=== PATIENT | male | born 1945 | race Caucasian/White ===

== ENCOUNTER → 2016-07-23 | Day surgery (SDC) | payer BC ==
[2016-07-20 12:27] LABS: HEMATOCRIT 42.7 % (42-52); MEAN CELL VOLUME 89.7 fL (80-100); MEAN CORPUSCULAR HEMOGLOBIN 30.9 pg (25-34); MEAN CORPUSCULAR HGB CONC 34.4 g/dl (32-36); MEAN PLATELET VOLUME 10.7 fL (7.4-10.4); PLATELET COUNT 198 K/uL (130-400); RED BLOOD COUNT 4.76 M/uL (4.7-6.1); WHITE BLOOD COUNT 6.53 K/uL (4.8-10.8)
[2016-07-20 12:49] LABS: CALCIUM 9.1 mg/dl (8.5-10.1)
[2016-07-20 13:07] LABS: BLOOD UREA NITROGEN 19 mg/dl (7-18); BUN/CREATININE RATIO 20.4 (10-20); CARBON DIOXIDE 25 mmol/L (21-32); CHLORIDE 105 mmol/L (98-107); CREATININE 0.94 mg/dl (0.60-1.40); GLUCOSE 104 mg/dl (70-99); POTASSIUM 4.3 mmol/L (3.5-5.1); SODIUM 141 mmol/L (136-145)
[~2016-07-23] VITALS: Ht 170.2 cm; Wt 113.5 kg
[~2016-07-23] MED LIST: ASPEC325 PO; ASPI-435; ASPI81TA28 PO; ATEN50TA8 PO; ATOR-24 PO; CENTTAB41 PO; CLB200 PO; FAMO20TA11 PO; FENTANYL CITRATE INJ 50 MCG/1 ML 2 ML VIAL ONE; GABA-113 PO; HEPARIN SOD (PORCINE) 1000 UNIT/ML 10 ML VIAL ONE; HYDC25 PO; LRT5 PO; MIDAZOLAM HCL 1 MG/ML 2ML VIAL ONE; MULTTAB5 PO; NITROGLYCERIN/D5W 100MCG/ML 20ML SYR ONE; NiCARDipine HCL INJ 2.5 MG/ML 10 ML AMP ONE; OMEG10007 PO; OSTEO BI FLEX PO; OXYSR20 PO; SENN-61 PO; SIMV20TA2 PO
[2016-07-23 07:33] VITALS: BP 137/65; PULSE 16; TEMP 36.9; O2SAT 98; Ht 170.2 cm; Wt 113.5 kg
--- NOTE | 2016-07-23 08:11 | History & Physical Bridge Note ---
H&P Re-Evaluation Bridge Note: I have examined the patient, reviewed the History & Physical and in the interval since the performance of the History & Physical I have noted the following changes of clinical significance: No changes noted
--- NOTE | 2016-07-23 08:12 | Procedure Note ---
Pre-Mod Sedation Assessment General Date of Moderate Sedation: Jul 23, 2016. Vital Signs: Vital Signs Past 12 Hours Date Time Temp Pulse Resp B/P (MAP) Pulse Ox O2 Delivery O2 Flow Rate FiO2 07/23/16 07:33 36.9 16 16 137/65 98 Room Air Review Cardiovascular: regular rate, rhythm, no edema Abdomen: normal bowel sounds, non tender Lungs: chest non-tender, lungs clear Pre-Sedation Airway Assessment Oral Cavity: WNL Able to Visualize Vocal Cords: No Short Thick Neck: No Hx of Sleep Apnea: Yes Smoking Status: Never Smoker Mallampati Classification: Class II ASA Classification: Class II Procedure Planning Contraindications-for Mod Sed: None Yes Notes The planned sedation has been discussed with the patient and consent obtained. I have identified the patient, determined the appropriateness of sedation and have assessed the patient immediately prior to the procedure. All medicine(s) and interventions are by my order.
--- NOTE | 2016-07-23 09:07 | Cardiac Catheterization ---
Procedure Note Procedure Date Jul 23, 2016. Pre-Procedure Diagnosis Valvular Disease AUC Score 7 Post-Procedure Diagnosis Normal Coronary Arteries, Normal Intracardiac Pressures Procedure(s) Performed Coronary Angiography, Left Heart Cath, Right Heart Cath Advertising Production Manager Omid Varnish Inspector(s) Lukasz Estimated Blood Loss 8 Medication(s) Fentanyl, Heparin, Nitroglycerin, Versed, Lidocaine 1% Summary of Findings Indication: Severe Aortic Stenosis Access: 5Fr right radial artery; 6Fr slender right antecubital vein Catheters: [place]; 6Fr [place] Findings: LM - Angiographically normal LAD - Large caliber vessel that wraps around the apex; 20% focal stenosis at take-off of 1st diagonal; distal luminal irregularities. Circumflex - Luminal irregularities; large caliber OM2 with luminal irregularities RCA - Dominant, large caliber vessel; 20% proximal, mid and distal segment luminal irregularities; 30-40% ostial PDA RA 2 RV 26/4 PA 27/9 (17) PCW 5 PaSat 64% AoSat 91% Katia CO/CI 3.7/2.3 Arterial Closure: TR Band Summary: 1. Mild non-obstructive coronary artery disease 2. Normal intracardiac filling pressures. No pulmonary hypertension. 3. Preserved cardiac output Recommendations: Refer to CT surgery for evaluation of AVR Continued ASCVD risk factor modification including high-intensity statin, ASA. Hemodynamics Rest Ao: 108/61/83 Final Ao: 129/65/95 LV: -- Recommendations Medical therapy and/or Counseling, valve replacement Specimens None Radiation Exposure (mGy) 1788 Contrast (mls) 85 Visi Fluids (cc crystalloids) 65 NS Drains None Anesthesia Moderate Procedural Complication(s) None Disposition Research Statistician Holding/Recovery [facility] Data Cardiac Status Clinical evaluation leading to the procedure CAD Presntation: Sx unlikely to be ischemic Anginal Classification: CCS I Heart Failure: No, NYHA Class: CCS I Cardiogenic Shock w/in 24Hrs: No Cardiac Arrest w/in 24Hrs: No Stress studies past 6 months: No Standard Exercise Stress Test: No Stress Echocardiogram: No Stress Testing w/SPECT MPI: No Cardiac CTA: No Coronary Anatomy Dominant: Right Left Main (% Stenosis): Normal LAD (% Stenosis): Proximal (20) Circumflex (% Stenosis): Normal RCA (% Stenosis): Normal R PDA (% Stenosis): Ostial (30-40) Diagnostic Physician's Name: Nas Machado MD Closure Device Percutaneous Entry Location: Radial Closure Device: Radial Band Recommendations: Medical therapy and/or Counseling, valve replacement Intraprocedure Events Significant Dissection: No Perforation: No
--- NOTE | 2016-07-23 09:08 | Procedure Note ---
Post-Mod Sedation Assessment General Date of Moderate Sedation Jul 23, 2016. Vital Signs: Vital Signs Past 12 Hours Date Time Temp Pulse Resp B/P (MAP) Pulse Ox O2 Delivery O2 Flow Rate FiO2 07/23/16 07:33 36.9 16 16 137/65 98 Room Air Review - Discharge Criteria Vital Signs Stable: Yes Alert/Oriented/Conversant: Yes Returned to Baseline Mental St: Yes Nausea Absent/Minimal: Yes Pain/Discomfort/Absent/Minimal: Yes Normal/Baseline Respirations: Yes Active Bleeding?: No Pt Received D/C Instructions: N/A Prescriptions Given: None Specific Proced. D/C Criteria Distal Pulses Present (Cardiac: Yes Groin site assessed-Card Cath: N/A Voided Prior To Discharge: N/A Discharged Patients Adult Escort/Transportation: Yes
--- NOTE | 2016-07-23 09:10 | Discharge Instructions ---
Discharge Instructions Procedure Procedure Date: Jul 23, 2016. Reason for Visit: Aortic Stenosis *. Discharge Discharge Date: Jul 23, 2016. Discharge Diagnosis: Severe Aortic Stenosis Last Recorded Wt (Kilograms): 113.5 Anesthesia Post Anesthesia Instructions: If you have had IV Sedation: * Do not drive today. * Resume driving when scientific technical writer permits. * Do not make important decisions or sign legal documents today. * Call surgeon for: 1. Temperature elevations greater than 101 degrees F. 2. Uncontrollable pain. 3. Excessive bleeding. 4. Persistent nausea and vomiting. 5. Medication intolerance (nausea, vomiting or rash). * For nausea and vomiting use only clear liquids such as: tea, soda, bouillon until nausea subsides, then gradually increase diet as tolerated. * If you have any concerns or questions, call your surgeon's office. If physician is unavailable and it is an emergency, call 911 or go to the nearest emergency room. Instructions Activity Recommendations: limitations as noted below Recommended Home Diet: resume previous diet Allergies: Coded Allergies: No Known Allergies (Unverified , 03/05/10) Follow Up Additional Instructions: ACTIVITY RECOMMENDATIONS: It is common to feel weak and fatigue for a few days. * Do not drive or operate any motorized equipment for the next 2 days. * Limit stair usage (2 or 3 trips a day only) for the next day. * Do not lift anything heavier than 10 pounds for the next three days. * Do not engage in vigorous exercise or any sports for the next five days. * You may shower the day after your procedure, but do not immerse the area for three days. Cleanse the site gently with soap and water. SPECIAL CARE INSTRUCTIONS: * You may replace the pressure dressing or band-aid the morning after the procedure. * After your procedure, it is normal to have a small bruise or small lump at the site. Examine your site daily for any change in the bruise or lump, redness, swelling, drainage or numbness. Notify your doctor if any change. BLEEDING: * If there is a small amount of bleeding at the site, lie down and apply firm pressure with a clean cloth for ten minutes. When the bleeding stops, lie quietly keeping the procedure limb straight for six hours. Notify your doctor as soon as possible. * If the bleeding does not stop after ten minutes or if there is a large amount of bleeding or spurting, call 911 immediately. Continue to lie down and hold firm pressure until help arrives. SKIN IRRITATION: * You may experience some redness and/or swelling in the area where radiation was administered. If any skin irritation occurs, please contact your family physician. FOLLOW UP VISIT: Keep any scheduled doctor appointments. Follow-up with: Cardiac surgery for evaluation of aortic valve replacement. Jose R Robledo Recommendations: Call your doctor if: * Temperature above 101 degrees * Pain not relieved by pain medicine ordered * There is increased drainage or redness from any incision * You have any unanswered questions or concerns. Your Doctors Instructions noted above were prepared by provider Tom Machado. Patient Signature Section: Patient Instructions Signature Page Warner Pickering Patient (or Guardian) Signature/Date: I have read and understand the instructions given to me by my caregivers. Caregiver/RN/Doctor Signature/Date: The above-named patient and/or guardian has received patient instructions on this date. + Original Patient Signature Page (only) stays with chart. Please make copy for patient.
[2016-07-23 11:30] VITALS: BP 131/89; PULSE 66; O2SAT 95
[2016-07-23 14:42] LABS: ISTAT ARTERIAL BLOOD GAS HCO3 24 meq/L (19-24); ISTAT ARTERIAL BLOOD GAS PCO2 42 mmHg (35-46); ISTAT ARTERIAL BLOOD GAS PO2 34 mmHg (80-95); ISTAT ARTERIAL BLOOD GAS pH 7.37 (7.35-7.45); ISTAT CARBON DIOXIDE 26 mEq/l (24-31)
[2016-07-23 15:36] LABS: ISTAT ARTERIAL BLOOD GAS HCO3 24 meq/L (19-24); ISTAT ARTERIAL BLOOD GAS PCO2 40 mmHg (35-46); ISTAT ARTERIAL BLOOD GAS PO2 63 mmHg (80-95); ISTAT ARTERIAL BLOOD GAS pH 7.38 (7.35-7.45); ISTAT CARBON DIOXIDE 25 mEq/l (24-31)
== END | disposition home or self-care (01) ==
LOC: C.CATH 07:13
PROVIDERS: ATTEND Internal Medicine Interventional Cardiology
DX: I38 Endocarditis, valve unspecified (principal)

== ENCOUNTER → 2017-02-14 | Outpatient (CLI) | payer BC ==
[~2017-02-14] MED LIST changes: -ASPEC325 PO; -ASPI-435; -ATEN50TA8 PO; -CENTTAB41 PO; -CLB200 PO; -FAMO20TA11 PO; -FENTANYL CITRATE INJ 50 MCG/1 ML 2 ML VIAL ONE; -HEPARIN SOD (PORCINE) 1000 UNIT/ML 10 ML VIAL ONE; -LRT5 PO; -MIDAZOLAM HCL 1 MG/ML 2ML VIAL ONE; -NITROGLYCERIN/D5W 100MCG/ML 20ML SYR ONE; -NiCARDipine HCL INJ 2.5 MG/ML 10 ML AMP ONE; -OSTEO BI FLEX PO; -OXYSR20 PO; -SENN-61 PO; -SIMV20TA2 PO
--- NOTE | 2017-02-14 13:34 | DIAGNOSTIC IMAGING REPORT ---
ART DOP LOWER EXT BILAT CLINICAL HISTORY: I73.9 Peripheral vascular [id number] COMPARISON STUDY: No previous studies for comparison. FINDINGS: Brachial arm systolic pressures were 124 mmHg on the right, and 114 mmHg on the left. Posterior tibial systolic pressures are 170 mmHg on the right common 179 mmHg on the left. Dorsalis views pressures were 129 mmHg the right and 159 mmHg on the left. On the right, there is triphasic flow within the common femoral, superficial femoral, posterior tibial, and anterior tibial vessels. There is biphasic flow within the popliteal and peroneal. On the left, there is triphasic flow within the common femoral, superficial femoral, and popliteal arteries. There was triphasic of the anterior tibial artery and biphasic flow posterior tibial and peroneal arteries. There are no high velocity jets identified. Adjacent to the left proximal superficial femoral artery, there is a hypoechoic 11 mm lesion of uncertain etiology. IMPRESSION: 1. No evidence of lower extremity arterial stenosis. Normal bilateral ankle brachial indices 2. 11 mm hypoechoic lesion adjacent the proximal left superficial femoral artery, of uncertain etiology Electronically signed by: Cornelio Barrientos M.D. 02/14/2017 1:33 PM Dictated Date/Time: 02/14/2017 1:30 PM
== END | disposition home or self-care (01) ==
LOC: C.ULTR 12:05
PROVIDERS: ATTEND Internal Medicine
DX: I73.9 Peripheral vascular disease, unspecified (principal)

== ENCOUNTER → 2017-03-02 | Outpatient (CLI) | payer BC ==
[~2017-03-02] MED LIST changes: +GADAVIST IV PRN
--- NOTE | 2017-03-02 15:30 | DIAGNOSTIC IMAGING REPORT ---
L LOWER EXT NONJOINT COMBO CLINICAL HISTORY: LEFT THIGH MASS mass TECHNIQUE: Multi axial MRI acquisition COMPARISON STUDY: Arterial Doppler dated 02/14/2017 FINDINGS: Signal characteristics of all major soft tissue structures are unremarkable. There is no evidence for mass or collection by MRI criteria. Signal characteristics of the subcutaneous fat as well as osseous structures and muscular structures are unremarkable. IMPRESSION: No evidence for soft tissue mass by MRI criteria. Six-month ultrasound follow-up is felt to be sufficient. The above report was generated using voice recognition software. It may contain grammatical, syntax or spelling errors. Electronically signed by: Juice Kuhn M.D. 03/02/2017 3:29 PM Dictated Date/Time: 03/02/2017 3:25 PM
== END | disposition home or self-care (01) ==
LOC: C.MRIBC 13:32
PROVIDERS: ATTEND Internal Medicine
DX: R22.40 Localized swelling, mass and lump, unspecified lower limb (principal); R93.6 Abnormal findings on diagnostic imaging of limbs

== ENCOUNTER 2018-03-22 08:18 | Inpatient (IN) ==
--- NOTE | 2018-03-02 12:12 | Anesthesiology Consultation ---
Date of Service March 02, 2018 Assessment & Plan (1) Encounter for pre-operative examination: Chart Review Chart Review: Acceptable Risk for Surgery and Patient seen in Pre Admission Testing Consults Requested medical (Dr. Seth (03/02)) Was seen at PCP's office and per note, "From a general medical standpoint, patient cleared for surgery". Teaching & Discussion Pre-Anesthesia Teaching/Discussion Notes: Instructed NPO after midnight before surgery, except medications with 15 cc of water. Medication instructions provided according to the PAT guidelines. History Surgery Operation Date: 03/22/18 07:45 Proposed Procedures p L2-L3 Decompression and Fusion, - Jersey Degroot DO s L3-S1 Removal of Hardware (Orthros) - Jersey Degroot DO Height/Weight Height: 5 ft 7 in Weight: 120.5 kg Allergies Allergy/AdvReac Type Severity Reaction Status Date / Time lisinopril Allergy Unknown Swelling Verified 02/24/18 15:23 of Lip/Tongue/Throat Medications Home Medications Medication Instructions Recorded Confirmed Last Taken aspirin [Aspir-81] 81 mg PO QAM 12/25/17 02/24/18 12/28/17 atorvastatin 40 mg PO QAM 12/25/17 02/24/18 12/28/17 gabapentin 600 mg PO TID 12/25/17 02/24/18 12/28/17 multivitamin 1 tab PO QAM 12/25/17 02/24/18 12/28/17 sennosides-docusate sodium 1 tab PO UD 12/25/17 02/24/18 Unknown [Senna-S] valsartan 160 mg tablet 160 mg PO QAM 02/13/18 02/24/18 Unknown ibuprofen 200 mg PO QID PRN 02/24/18 02/24/18 Unknown Past Medical History Medical History CAD (coronary artery disease) (Chronic) Hypertension (Chronic) Diverticular disease (Chronic) Peripheral neuropathy (Chronic) Lumbar stenosis with neurogenic claudication (Chronic) Cardiac murmur HX Chronic back pain TO RIGHT LEG Morbid obesity Osteoarthritis Sleep apnea CPAP Past Surgical History Surgical History History of total knee replacement (Chronic) Bilateral History of colectomy (Chronic) PARTIAL FOR DIVERTIVCULITIS History of heart valve replacement (Chronic) [facility] 09/2016 History of spinal fusion (Chronic) Past Anesthesia History No Hx of Anesthesia Complications and No Family Hx of Anesthesia Complications History of PONV No Motion Sickness Screening History of Motion Sickness: No Social History Smoking Status: Never smoker Do You Dip or Chew Tobacco: No Hx Alcohol Use: Yes (RARELY) Alcohol type: wine alcohol intake frequency: holidays/special occasions only Hx Substance Use: No Exercise / Class Metabolic Activity III < 4 Walking/Shop/Light housework (Walks when able. Able to climb FOS. Denies CP or SOB.) Review of Systems Patient denies chest pain, shortness of breath, dyspnea on exertion, reflux, cough, wheezing, palpitations. +joint pain (back, left wrist) Physical Exam Vital Signs BP: 115/84 P: 73 R: 18 T: 97.9 SPO2: 95% on RA Constitutional + morbidly obese ENMT Thyromental Distance: < 3.5 Finger Breadths (3) Mallampati Class: II Neck normal visual inspection, trachea midline and + thick neck; neck extension not limited Respiratory normal respiratory effort Auscultation: lungs clear to auscultation bilaterally Cardiovascular Rate/Rhythm: regular rate and regular rhythm Heart Sounds: + murmur (2/6) Vessels: no carotid bruit Neurologic moves all extremities Psychiatric Orientation: alert and oriented x 3 Testing Electrocardiogram Date: 07/27/17 Findings: + NSR @ (67) and + RBBB Left anterior fascicular block. Minimal voltage criteria for LVH, may be normal variant. When compared to EKG of 03/05/10, RBBB and left anterior fascicular block are now present. (This is not new when compared to the written interpretation of EKG's from [facility] , no tracings available) Chest X-Ray Date: 03/02/18 Findings: + NAD and + cardiomegaly FINDINGS: PA and lateral chest radiographs are compared to study dated 2017. The heart is mildly enlarged and there is atherosclerotic calcification of the thoracic aorta. The pulmonary vasculature is noncongested. There is evidence of previous cardiac valve surgery. Chronic interstitial thickening is similar to previous. There is mild bibasilar atelectasis. No airspace consolidation or pleural effusion is identified. There is no pneumothorax. The skeletal structures are osteopenic. Degenerative change is noted throughout the thoracic spine. The bony thorax appears intact. IMPRESSION: Cardiomegaly with no active disease in the chest. Echocardiogram Date: 05/18/17 EF: 55-60% Nondilated left ventricle with a severely hypokinetic posterior wall ( consistent across all ECHOs since at least 2015) and overall preserved systolic function. Normal right ventricle size. The right ventricle has normal function. There is an Evolut prosthesis in the aortic position with normal appearance and transvalvular gradiants. The valve size is #29. There is trace posterior paravalvular regurgitation of the aortic prosthesis. Mitral annular calcification. Laboratory Results 03/02/18 11:33 03/02/18 11:53 Blood Type O Positive 03/02/18 11:33 Antibody Screen NEGATIVE 03/02/18 11:33 PT 10.2 Seconds (9.0-12.0) 03/02/18 11:33 INR 1.0 (0.9-1.1) 03/02/18 11:33 APTT 24.5 Seconds (21.0-31.0) 03/02/18 11:33 Urine Color Yellow 03/02/18 11:33 Urine Appearance Clear (Clear) 03/02/18 11:33 Urine pH 7.0 (4.5-7.5) 03/02/18 11:33 Ur Specific [place] 1.021 (1.000-1.030) 03/02/18 11:33 Urine Protein Negative (Negative) 03/02/18 11:33 Urine Glucose (UA) Negative (Negative) 03/02/18 11:33 Urine Ketones Negative (Negative) 03/02/18 11:33 Urine Nitrite Negative (Negative) 03/02/18 11:33 Ur Leukocyte Esterase Negative (Negative) 03/02/18 11:33
--- NOTE | 2018-03-02 12:16 | PAT Medication Instructions ---
Medication Instructions Date of Service March 02, 2018 Home Medications aspirin [Aspir-81] 81 mg PO QAM atorvastatin 40 mg PO QAM gabapentin 600 mg PO TID multivitamin 1 tab PO QAM sennosides-docusate sodium [Senna-S] 1 tab PO MWF valsartan 160 mg tablet 160 mg PO QAM ibuprofen 200 mg PO QID NEEDED ASK your surgeon for instructions aspirin [Aspir-81] 81 mg PO QAM ibuprofen 200 mg PO QID NEEDED DO NOT take the morning of surgery multivitamin 1 tab PO QAM sennosides-docusate sodium [Senna-S] 1 tab PO MWF valsartan 160 mg tablet 160 mg PO QAM Take morning of surgery With a small sip of water, OTHERWISE NOTHING TO EAT OR DRINK AFTER MIDNIGHT: atorvastatin 40 mg PO QAM gabapentin 600 mg PO TID Take evening before surgery gabapentin 600 mg PO TID Other Notes If you have any questions please call us at [phone] or [phone] or [phone] or [phone]
--- NOTE | 2018-03-02 13:09 | XRay Report ---
TWO VIEW CHEST CLINICAL HISTORY: Preoperative examination. FINDINGS: PA and lateral chest radiographs are compared to study dated 07/27/2017. The heart is mildly enlarged and there is atherosclerotic calcification of the thoracic aorta. The pulmonary vasculature is noncongested. There is evidence of previous cardiac valve surgery. Chronic interstitial thickenin g is similar to previous. There is mild bibasilar atelectasis. No airspace consolidation or pleural e ffusion is identified. There is no pneumothorax. The skeletal structures are osteopenic. Degenerative change is noted throughout the thoracic spine. The bony thorax appears intact. IMPRESSION: Cardiomegaly with no active disease in the chest. Electronically signed by: Per Beltrán M.D. 03/02/2018 1:08 PM
[2018-03-02 13:49] LABS: Basophils # (auto) 0.03 K/uL (0-0.2); Basophils % (auto) 0.4 %; Eosinophils # (auto) 0.07 K/uL (0-0.5); Eosinophils % (auto) 0.8 %; Hematocrit (blood only) 38.9 % (42-52); Hemoglobin 12.9 g/dL (14.0-18.0); Immature Granulocytes # (auto) 0.06 K/uL (0.00-0.02); Immature Granulocytes % (auto) 0.7 %; Lymphocytes # (auto) 1.42 K/uL (1.2-3.4); Lymphocytes % (auto) 16.9 %; Mean Corpuscular Hgb Conc 33.2 g/dL (32-36); Mean Corpuscular Volume 91.1 fL (80-100); Mean Platelet Volume 10.4 fL (7.4-10.4); Monocytes # (auto) 0.76 K/uL (0.11-0.59); Monocytes % (auto) 9.1 %; Neutrophils # (auto) 6.04 K/uL (1.4-6.5); Neutrophils % (auto) 72.1 %; Platelet Count 207 K/uL (130-400); RDW Coefficient of Variation 14.8 % (11.5-14.5); RDW Standard Deviation 49.4 fL (36.4-46.3); Red Blood Count 4.27 M/uL (4.7-6.1); White Blood Count 8.38 K/uL (4.8-10.8)
[2018-03-02 13:58] LABS: Appearance Urine Clear (Clear); Bilirubin Urine Negative (Negative); Color Urine Yellow; Glucose Urine UA Negative (Negative); Ketones Urine Negative (Negative); Leukocyte Esterase Urine Negative (Negative); Nitrite Urine Negative (Negative); Protein Urine Negative (Negative); Specific Gravity Urine 1.021 (1.000-1.030); Urobilinogen Urine Negative (Negative)
[2018-03-02 14:01] LABS: Partial Thromboplastin Ratio 0.9; Partial Thromboplastin Time 24.5 Seconds (21.0-31.0); Prothrombin Time 10.2 Seconds (9.0-12.0)
[2018-03-02 14:17] LABS: BUN Creatinine Ratio 22.5 (10-20); Est GFR (African American) 77.6; Potassium 4.6 mmol/L (3.5-5.1)
[~2018-03-22 08:18] MED LIST changes: +ACETAMINOPHEN 500 MG TAB PO SCH; -ASPI81TA28 PO; -ATOR-24 PO; +CEFAZOLIN 3000MG 65 ML IV SCH; +CeleBREX 200 MG CAP PO SCH; -GABA-113 PO; +GABAPENTIN 300 MG PO SCH; -GADAVIST IV PRN; -HYDC25 PO; +LR 15ML/HR IV SCH; -MULTTAB5 PO; -OMEG10007 PO
[2018-03-22] MEDS ORDERED: fentaNYL citrate 100 MCG/2 ML VIAL ONE (11:19)
[2018-03-22] MEDS ORDERED: MIDAZOLAM HCL 1 MG/ML 2ML VIAL ONE (11:19)
[2018-03-22] MEDS ORDERED: ONDANSETRON INJ 2 MG/ML 2 ML VIAL IV PRN ×2 (12:15→16:13)
[2018-03-22] MEDS ORDERED: ATROPINE SULFATE 0.1 MG/ML 10ML SYR IV PRN (12:15)
[2018-03-22] MEDS ORDERED: HYDROmorphone INJ 1 MG/ML SYRINGE IV PRN (12:15)
[2018-03-22] MEDS ORDERED: LABETALOL HCL IV 5 MG/ML 20ML IV PRN (12:15)
--- NOTE | 2018-03-22 12:25 | History & Physical Bridge Note ---
Date of Service March 22, 2018 History & Physical Bridge Note I have examined the patient, reviewed the History & Physical and in the interval since the performance of the History & Physical I have noted the following changes of clinical significance: no changes noted
--- NOTE | 2018-03-22 12:28 | History & Physical Report ---
Date of Service March 22, 2018 Assessment & Plan (1) Herniation of lumbar intervertebral disc with radiculopathy: Hardware removal L3-S1 L2-3 decompression and fusion Present on Admission?: Yes History of Present Illness Chief Complaint: Back and leg pain Primary Care Provider: Chris Smith MD This is a 72-year-old male well-known to me that is failed extensive course of nonoperative care struggling with back and leg pain is here for surgical intervention. Allergies Allergy/AdvReac Type Severity Reaction Status Date / Time lisinopril Allergy Unknown Swelling Verified 03/22/18 09:39 of Lip/Tongue/Throat Home Medications Home Medications Medication Instructions Recorded Confirmed Type aspirin [Aspir-81] 81 mg PO QAM 12/25/17 03/22/18 History atorvastatin 40 mg PO QAM 12/25/17 03/22/18 History gabapentin 600 mg PO TID 12/25/17 03/22/18 History multivitamin 1 tab PO QAM 12/25/17 03/22/18 History sennosides-docusate sodium 1 tab PO UD 12/25/17 03/22/18 History [Senna-S] valsartan 160 mg tablet 160 mg PO QAM 02/13/18 03/22/18 History ibuprofen 200 mg PO QID PRN 02/24/18 03/22/18 History Past Med/Surg History Social History Current Living Situation: Alone Other Information That Helps Us Care for You: No Feels Safe at Home: Yes Safety Concerns: Feels Safe At This Time Smoking Status: Never smoker Do You Dip or Chew Tobacco: No Hx Alcohol Use: Yes (RARELY) Alcohol type: wine Alcohol Intake Frequency: holidays/special occasions only Hx Substance Use: No Beliefs That Will Affect Care: None Preferred Language: Cuban Communication Ability: Effective Magazine Designer Required: No Physical Exam 2 Vital Signs (Past 24 Hours): Last Vital Signs Temp 36.9 C 03/22/18 09:54 Pulse 81 03/22/18 09:54 Resp 18 03/22/18 09:54 BP 162/78 H 03/22/18 09:54 Pulse Ox 94 03/22/18 09:54 Results & Data Medications Administered Acetaminophen (Tylenol) 1,000 mg PO PREOP BALJIT Stop: 03/22/18 18:00 Last Admin: 03/22/18 09:51 Dose: 1,000 mg Celecoxib (Celebrex) 200 mg PO PREOP BALJIT Stop: 03/22/18 18:00 Last Admin: 03/22/18 09:51 Dose: 200 mg Gabapentin (Neurontin) 300 mg PO PREOP BALJIT Stop: 03/22/18 18:00 Last Admin: 03/22/18 09:43 Dose: Not Given
[2018-03-22] MEDS ORDERED: BUPIVACAINE/EPINEPHRINE 0.5% MPF 1:200,000 30 ML VIAL ONE (12:41)
[2018-03-22] MEDS ORDERED: BACITRACIN INJ 50,000 UNIT VIAL ONE (12:41)
[2018-03-22] MEDS ORDERED: ROCURONIUM BROMIDE 10 MG/ML 5 ML VIAL ONE (13:22)
[2018-03-22] MEDS ORDERED: PROPOFOL IV EMULSION 10 MG/ML 20 ML VIAL IV ONE (13:22)
[2018-03-22] MEDS ORDERED: NEOSTIGMINE METHYLSULFATE 1 MG/ML 10ML VIAL ONE (13:22)
[2018-03-22] MEDS ORDERED: HYDROmorphone INJ 2 MG/ML SYR/VIAL ONE (13:22)
[2018-03-22] MEDS ORDERED: ONDANSETRON INJ 2 MG/ML 2 ML VIAL ONE (13:22)
[2018-03-22] MEDS ORDERED: LIDOCAINE HCL 2% 2 ML VIAL/AMP(20MG/ML) INFIL ONE (13:22)
[2018-03-22] MEDS ORDERED: GLYCOPYRROLATE 0.2 MG/ML VIAL ONE (13:22)
[2018-03-22] MEDS ORDERED: DEXAMETHASONE SOD INJ 4 MG/ML VIAL ONE (13:22)
[2018-03-22] MEDS ORDERED: FLOSEAL HEMOSTATIC MATRIX 10ML TOP ONE (13:37)
--- NOTE | 2018-03-22 15:03 | Operative Report ---
Post Operative Report Pre & Post Diagnosis Operation Date: 03/22/18 11:25 Pre-Op Diagnosis: Intervertebral Disc Disorder with Radiculopathy, L Post-Op Diagnosis: Intervertebral Disc Disorder with Radiculopathy, L Procedure Operation Date: 03/22/18 11:25 Actual Procedures #1 removal of rods and cross-link L3-S1. #2 expiration of fusion L3-S1. #3 lumbar decompression bilateral medial facetectomies and foraminotomies L2-3. # 4 posterior spinal fusion L2-3. #5 placed a posterior instrumentation L2-S1. # 6 interbody fusion L2-3. #7 placement of titanium 10 x 26 mm cage L2-3. #8 placement of local autograft in the posterior lateral gutters. #9 placement Feese collagen sponge bone mass graft in the posterior gutters and ostial amp and interbody space. Surgeon Jersey Degroot DO Developer Analyst Sydney Owusu Estimated Blood Loss 200 Findings Consistent with Post-Op Diagnosis Specimens None Description of Procedure Patient was met with preoperatively case discussed all questions addressed. After informed consent obtained patient was taken to the operative suite underwent intubation and placed in a prone position on the Ashutosh table on top of the Vidal frame. All bony prominences well-padded eyes inspected to ensure no external pressure placed upon. This point the lumbar spine was prepped and draped in a normal sterile fashion. Sharp dissection with the assistance of Bovie cautery was performed down to and exposing the lamina and transverse processes of L2 and instrumentation at L3-L4-L5 and sacral ala bilaterally. Then proceeded move the end caps and cross-link as well as the rods at these levels. Explored the fusion mass noting it to be maturing and intact. I then performed a complete laminectomy of L2 including medial facetectomies foraminotomies also addressing massive disc herniation that migrated caudally on the right. After complete decompression pedicle screws were placed in L2 and the purposes janny placed from L2-S1 bilaterally. Through a transforaminal approach on the right complete discectomy was performed and an plate curetted to subcortical bleeding bone. A 10 x 26 mm titanium cage filled with ostium bone graft tapped in position. The rods were then compressed vision bilaterally. Transverse processes of L2 and L3 burred to subcortical bleeding bone. Infuse collagen sponge mass graft local autograft placed in the posterior gutters. 15 round LISETTE drain inserted. Incision was then closed with 1 Vicryl the fascia 2-0 Vicryl subcutaneously and 4-0 Monocryl for final skin closure. Steri-Strips sterile dressing was placed. Patient will continue to PACU stable condition. Please note Sydney Owusu was present throughout the entire procedure involved in patient positioning complex portions of the surgery and final skin closure I attest to the content of the Intraoperative Record and any orders documented therein. Any exceptions are noted below.
--- NOTE | 2018-03-22 15:21 | Fluoroscopy Report ---
INTRAOPERATIVE RADIOGRAPHS CLINICAL HISTORY: L3-S1 spinal fusion. Fluoroscopy time: 9 seconds. FINDINGS: 2 spot fluoroscopic views of the lumbar spine are presented. There are postoperative change s from multilevel laminectomy and posterior fusion throughout the lumbar spine, reportedly from L3 -S 1. There has been discectomy at several levels. The orthopedic hardware appears intact. IMPRESSION: Intraoperative images from lumbar spinal surgery as above. See operative report for detai led findings. Electronically signed by: Per Beltrán M.D. 03/22/2018 3:19 PM
[2018-03-22] MEDS ORDERED: METOCLOPRAMIDE HCL INJ 5 MG/ML 2 ML VIAL IV PRN (16:13)
[2018-03-22] MEDS ORDERED: ONDANSETRON 4 MG TAB PO PRN (16:13)
[2018-03-22] MEDS ORDERED: DO NOT ADMINISTER FLU VACCINE PRN (16:13)
[2018-03-22] MEDS ORDERED: HYDROmorphone INJ 0.5 MG/0.5 ML SYR IV PRN (16:13)
[2018-03-22] MEDS ORDERED: LORazepam 0.5 MG TAB PO PRN (16:13)
[2018-03-22] MEDS ORDERED: FAMOTIDINE 20 MG TAB PO PRN (16:13)
[2018-03-22] MEDS ORDERED: BISACODYL 10 MG SUPP PR PRN (16:13)
[2018-03-22] MEDS ORDERED: PROMETHAZINE HCL 12.5 MG in SODIUM CHLORIDE 0.9% 50 ML IV PRN (16:13)
[2018-03-22] MEDS ORDERED: SOD PHOSPHATE/SOD BIPHOSPHATE ENEMA 132 ML BTL PR PRN (16:13)
[2018-03-22] MEDS ORDERED: ALUMINUM/MAGNESIUM SUSP 30 ML UDC PO PRN (16:13)
[2018-03-22] MEDS ORDERED: DO NOT ADMINISTER PNEUMOCOCCAL VACCINE PRN (16:13)
[2018-03-22] MEDS ORDERED: DOCUSATE SODIUM/SENNA 50/8.6MG TAB PO SCH (16:13)
[2018-03-22] MEDS ORDERED: ACETAMINOPHEN 1,000 MG/100 ML VIAL IV PRN (16:13)
[2018-03-22] MEDS ORDERED: OXYCODONE HCL IR 5 MG TAB (IMMEDIATE RELEASE) PO PRN (16:13)
[2018-03-22] MEDS ORDERED: MAGNESIUM HYDROXIDE SUSP 30 ML UDC PO PRN (16:13)
[2018-03-22] MEDS ORDERED: LORazepam 0.5 MG/1 ML VIAL IV PRN (16:13)
--- NOTE | 2018-03-22 17:06 | Anesthesiology Progress Note ---
Date of Service March 22, 2018 Anesthesia Post Procedure Vital Signs Vital Signs: Temp Pulse Pulse Resp BP Pulse Ox 03/22/18 16:46 36.7 C 70 18 144/74 H 97 03/22/18 16:00 73 12 160/68 H 96 03/22/18 15:55 36.1 C L 77 12 151/77 H 97 03/22/18 15:45 83 12 151/74 H 96 03/22/18 15:35 82 10 L 163/75 H 98 03/22/18 15:25 86 14 175/73 H 99 03/22/18 15:18 36.0 C L 88 16 184/88 H 98 03/22/18 09:54 36.9 C 81 18 162/78 H 94 Pain Intensity Lower Back: Pain Intensity: 2 Notes Mental Status: alert / awake / arousable Patient Amnestic to Procedure: Yes Nausea / Vomiting: adequately controlled Pain: adequately controlled Airway Patency, RR, SpO2: stable & adequate BP & HR: stable & adequate Hydration State: stable & adequate Anesthetic Complications: no major complications apparent
[2018-03-22] MEDS: KETOROLAC TROMETHAMINE 15 MG/ML VIAL IV SCH ×2 (17:56→23:44)
[2018-03-22] MEDS: LACTATED RINGER'S 1,000 ML IV SCH ×2 (17:56→20:26)
[2018-03-22] MEDS: DOCUSATE SODIUM/SENNA 50/8.6MG TAB PO SCH (20:16)
[2018-03-22] MEDS: GABAPENTIN 600 MG TAB PO SCH (20:16)
[2018-03-22] MEDS: CEFAZOLIN 2000MG 2,000 MG/15 ML SYR IV SCH (22:14)
[2018-03-23] MEDS: LACTATED RINGER'S 1,000 ML IV SCH (02:30)
[2018-03-23] MEDS: CEFAZOLIN 2000MG 2,000 MG/15 ML SYR IV SCH (05:26)
[2018-03-23] MEDS: KETOROLAC TROMETHAMINE 15 MG/ML VIAL IV SCH ×2 (05:27→11:40)
[2018-03-23 05:46] LABS: Basophils # (auto) 0.01 K/uL (0-0.2); Basophils % (auto) 0.1 %; Hematocrit (blood only) 31.6 % (42-52); Hemoglobin 10.9 g/dL (14.0-18.0); Immature Granulocytes # (auto) 0.06 K/uL (0.00-0.02); Immature Granulocytes % (auto) 0.4 %; Lymphocytes # (auto) 0.86 K/uL (1.2-3.4); Lymphocytes % (auto) 5.9 %; Mean Corpuscular Hgb Conc 34.5 g/dL (32-36); Mean Corpuscular Volume 87.8 fL (80-100); Mean Platelet Volume 9.4 fL (7.4-10.4); Monocytes # (auto) 0.83 K/uL (0.11-0.59); Monocytes % (auto) 5.7 %; Neutrophils # (auto) 12.78 K/uL (1.4-6.5); Neutrophils % (auto) 87.9 %; Platelet Count 227 K/uL (130-400); RDW Coefficient of Variation 14.3 % (11.5-14.5); RDW Standard Deviation 45.8 fL (36.4-46.3); White Blood Count 14.54 K/uL (4.8-10.8)
[2018-03-23] MEDS: POLYETHYLENE (MIRALAX) 17 GM PACK PO SCH ×4 (06:00→23:11)
[2018-03-23 06:15] LABS: BUN Creatinine Ratio 22.5 (10-20); Calcium 8.2 mg/dl (8.5-10.1); Creatinine Clr Calc Pharmacy 62.2 ml/min; Est GFR (African American) 62.2; Est GFR (Non-African American) 53.6; Potassium 4.5 mmol/L (3.5-5.1)
[2018-03-23] MEDS: VALSARTAN 80 MG TAB PO SCH (08:43)
[2018-03-23] MEDS: ATORVASTATIN 40 MG TAB PO SCH (08:44)
[2018-03-23] MEDS: GABAPENTIN 600 MG TAB PO SCH ×3 (08:45→19:49)
[2018-03-23] MEDS: MULTIVITAMIN TAB PO SCH (08:45)
--- NOTE | 2018-03-23 09:00 | Orthopedic Progress Note ---
Date of Service March 23, 2018 Assessment & Plan (1) Herniation of lumbar intervertebral disc with radiculopathy: This time we will continue physical therapy advance his activity as tolerated. Hopefully discharge home this weekend. Present on Admission?: Yes Subjective Back pain is controlled leg symptoms markedly improved. Physical Exam 2 Vital Signs (Past 24 Hours): Last Vital Signs Temp 37.1 C 03/23/18 06:59 Pulse 93 H 03/23/18 06:59 Resp 18 03/23/18 06:59 BP 113/69 03/23/18 06:59 Pulse Ox 91 03/23/18 06:59 Physical Exam: On exam patient is sitting the chair at the bedside. He has good strength testing. Appears comfortable.
--- NOTE | 2018-03-23 09:28 | Anesthesiology Progress Note ---
Date of Service March 23, 2018 Anesthesia Post Procedure Vital Signs Vital Signs: Temp Pulse Pulse Resp BP Pulse Ox 03/23/18 06:59 37.1 C 93 H 18 113/69 91 03/23/18 03:31 36.9 C 83 16 120/64 96 03/22/18 23:48 37.1 C 74 16 101/59 L 94 03/22/18 19:35 37.2 C 95 H 18 106/64 92 03/22/18 18:17 36.7 C 101 H 18 137/78 95 03/22/18 17:13 36.7 C 75 18 149/74 H 95 03/22/18 16:46 36.7 C 70 18 144/74 H 97 03/22/18 16:15 36.6 C 74 16 156/75 H 97 03/22/18 16:00 73 12 160/68 H 96 03/22/18 15:55 36.1 C L 77 12 151/77 H 97 03/22/18 15:45 83 12 151/74 H 96 03/22/18 15:35 82 10 L 163/75 H 98 03/22/18 15:25 86 14 175/73 H 99 03/22/18 15:18 36.0 C L 88 16 184/88 H 98 03/22/18 09:54 36.9 C 81 18 162/78 H 94 Pain Intensity Lower Back: Pain Intensity: 2 Notes Mental Status: alert / awake / arousable Patient Amnestic to Procedure: Yes Nausea / Vomiting: adequately controlled Pain: adequately controlled Airway Patency, RR, SpO2: stable & adequate BP & HR: stable & adequate Hydration State: stable & adequate Anesthetic Complications: no major complications apparent and Pt Satisfied with anesthetic care
[2018-03-23] MEDS: ASPIRIN 81 MG ECTAB PO SCH (11:36)
[2018-03-23] MEDS: DOCUSATE SODIUM/SENNA 50/8.6MG TAB PO SCH (19:49)
[2018-03-23] MEDS: TRAMADOL HCL 50 MG TABLET PO PRN (19:49)
--- NOTE | 2018-03-23 22:59 | Internal Medicine Consult Note ---
Date of Consultation March 23, 2018 Assessment & Plan (1) Herniation of lumbar intervertebral disc with radiculopathy: Herniation of lumbar intervertebral disc: Plan and pain management per primary DVT prophylaxis, PT/OT, pain control per primary (2) Hypertension: continue valsartan. B/P appears to be normal will monitor. (3) History of heart valve replacement: (4) CAD (coronary artery disease): Continue ASA Continue atorvastatin Will sign off case. Please do not hesitate to contact us if you have any questions. Spent 35 minutes in management of patient. History of Present Illness Reason for Consultation: Medical management for hypertension Attending Physician: Jersey Degroot DO History of Present Illness 72 yo male who had Hardware removal L3-S1 L2-3 decompression and fusion on . Patient is being seen for medical management. Patient has no new complaints. He states his pain is well controlled. He is passing gas but has not had a bowel movement. He anticipates discharge on tuesday. Allergies Allergy/AdvReac Type Severity Reaction Status Date / Time lisinopril Allergy Unknown Swelling Verified 03/22/18 09:39 of Lip/Tongue/Throat Home Medications Home Medications Medication Instructions Recorded Confirmed Type aspirin [Aspir-81] 81 mg PO QAM 12/25/17 03/22/18 History atorvastatin 40 mg PO QAM 12/25/17 03/22/18 History gabapentin 600 mg PO TID 12/25/17 03/22/18 History multivitamin 1 tab PO QAM 12/25/17 03/22/18 History sennosides-docusate sodium 1 tab PO UD 12/25/17 03/22/18 History [Senna-S] valsartan 160 mg tablet 160 mg PO QAM 02/13/18 03/22/18 History ibuprofen 200 mg PO QID PRN 02/24/18 03/22/18 History oxycodone 5 mg PO Q4H PRN #30 tab 03/23/18 Rx tramadol 50 mg PO Q4H PRN #30 tab 03/23/18 Rx Patient History Medical History CAD (coronary artery disease) (Chronic) Hypertension (Chronic) Diverticular disease (Chronic) Peripheral neuropathy (Chronic) Lumbar stenosis with neurogenic claudication (Chronic) Cardiac murmur HX Chronic back pain TO RIGHT LEG Morbid obesity Osteoarthritis Sleep apnea CPAP Surgical History History of total knee replacement (Chronic) Bilateral History of colectomy (Chronic) PARTIAL FOR DIVERTIVCULITIS History of heart valve replacement (Chronic) [facility] 09/2016 History of spinal fusion (Chronic) Family History Mother Diabetes mellitus, type 2 Stroke Sister Diabetes mellitus, type 2 Brother Diabetes mellitus, type 2 Other Family history of diabetes mellitus Social History Current Living Situation: Alone Other Information That Helps Us Care for You: No Feels Safe at Home: Yes Safety Concerns: Feels Safe At This Time Smoking Status: Never smoker Do You Dip or Chew Tobacco: No Hx Alcohol Use: Yes (RARELY) Alcohol type: wine Alcohol Intake Frequency: holidays/special occasions only Hx Substance Use: No Beliefs That Will Affect Care: None Communication Ability: Effective Review of Systems Constitutional: no sweats and no malaise Eyes: no diplopia Ear, Nose, Mouth, Throat: no ear trauma and no hyperacusis Respiratory: no cough and no dyspnea Cardiovascular: no chest pain and no radiating jaw, neck or arm pain Gastrointestinal: + bloating Musculoskeletal: + back pain Integumentary: no acne and no lesions Neurologic: no gait abnormality and no localized weakness Psychiatric: no behavioral changes Endocrine: no fatigue Hematologic / Lymphatic: no easy bleeding Physical Exam 2 Vital Signs (Past 24 Hours): Last Vital Signs Temp 36.9 C 03/23/18 15:10 Pulse 77 03/23/18 15:10 Resp 18 03/23/18 15:10 BP 95/46 L 03/23/18 15:10 Pulse Ox 93 03/23/18 15:10 Physical Exam: General: no distress Eyes: normal inspection, PERLLA Respiratory: chest non tender, clear to auscultation, normal breath sounds, no respiratory distress, no accessory muscle use Cardiac: regular rate and rhythm, 2/6 systolic murmur LUSB, no edema, no jvd GI/: active bowel sounds, no abd pain or tenderness, soft, non distended Extremities: normal range of motion, normal strength, non tender Neuro/Psych: alert and oriented x 3, normal mood and affect Skin: normal color, dry
[2018-03-24] MEDS: POLYETHYLENE (MIRALAX) 17 GM PACK PO SCH ×2 (05:44→11:44)
[2018-03-24] MEDS: VALSARTAN 80 MG TAB PO SCH (08:46)
[2018-03-24] MEDS: MULTIVITAMIN TAB PO SCH (08:47)
[2018-03-24] MEDS: GABAPENTIN 600 MG TAB PO SCH ×3 (08:47→21:02)
[2018-03-24] MEDS: ATORVASTATIN 40 MG TAB PO SCH (08:47)
[2018-03-24] MEDS: ASPIRIN 81 MG ECTAB PO SCH (08:47)
[2018-03-24] MEDS ORDERED: Nursing to Pharmacy Communication ONE (13:36)
--- NOTE | 2018-03-24 15:06 | Orthopedic Progress Note ---
Date of Service March 24, 2018 Assessment & Plan (1) Herniation of lumbar intervertebral disc with radiculopathy: At this time we will continue physical therapy monitor his LISETTE output. Anticipate discharge home tomorrow. Present on Admission?: Yes Subjective Back pain is controlled leg symptoms markedly improved. Physical Exam 2 Vital Signs (Past 24 Hours): Last Vital Signs Temp 36.9 C 03/24/18 07:00 Pulse 79 03/24/18 07:00 Resp 18 03/24/18 07:00 BP 117/64 03/24/18 07:00 Pulse Ox 95 03/24/18 07:00 Physical Exam: Patient is in the chair at the bedside. Is good strength testing. Appears comfortable.
[2018-03-24] MEDS: ACETAMINOPHEN 500 MG TAB PO PRN (16:25)
[2018-03-24] MEDS: DOCUSATE SODIUM/SENNA 50/8.6MG TAB PO SCH (21:02)
[2018-03-25] MEDS: TRAMADOL HCL 50 MG TABLET PO PRN (07:09)
[2018-03-25] MEDS: VALSARTAN 80 MG TAB PO SCH (09:00)
[2018-03-25] MEDS: MULTIVITAMIN TAB PO SCH (09:00)
[2018-03-25] MEDS: ASPIRIN 81 MG ECTAB PO SCH (09:01)
[2018-03-25] MEDS: ATORVASTATIN 40 MG TAB PO SCH (09:01)
[2018-03-25] MEDS: GABAPENTIN 600 MG TAB PO SCH (09:01)
--- NOTE | 2018-03-25 09:18 | Orthopedic Progress Note ---
Date of Service March 25, 2018 Assessment & Plan (1) Lumbar radiculopathy: Patient is improving postoperative day #3. I encouraged him to continue walking. He has met discharge criteria we will discharge him to home. He is to change dressing once daily until its dry. Once the incision is dry he may start to shower. He should avoid any full bending at the waist and reviewed the rest of his discharge instructions in detail. We will see him in the office in approximately 2 weeks. Subjective Patient seen postop day #3. He is doing quite well at this point the leg pain that he had prior to surgery is gone. He has some mild discomfort in his back but is just requiring tramadol for pain control. Overall he is progressing nicely. He denies any other nausea numbness or tingling. Physical Exam 2 Vital Signs (Past 24 Hours): Last Vital Signs Temp 36.9 C 03/25/18 07:26 Pulse 92 H 03/25/18 07:26 Resp 17 03/25/18 07:26 BP 136/74 03/25/18 07:26 Pulse Ox 92 03/25/18 07:26 Physical Exam: On exam he is alert and oriented. His abdomen soft nontender his calves are supple and nontender. His dressing is clean dry and intact. Strength and sensation both intact his gait was not observed.
[2018-03-25] MEDS: ACETAMINOPHEN 500 MG TAB PO PRN (10:42)
--- NOTE | 2018-03-29 07:31 | Discharge Summary ---
Date of Service March 29, 2018 Admission HPI Per Admitting Provider This is a 72-year-old male well-known to me that is failed extensive course of nonoperative care struggling with back and leg pain is here for surgical intervention. He is to undergo removal of instrumentation L3 through S1 and posterior lumbar decompression fusion L2-3 Admission Exam (Per Admitting) Constitutional well developed Eyes normal visual connors by confrontation ENMT external ear and nose normal, oropharynx normal Neck normal visual inspection Respiratory normal respiratory effort Cardiovascular Extremities: normal capillary refill Gastrointestinal (Abdomen) Inspection/Auscultation: abdomen normal to inspection Musculoskeletal Extremities: extremities normal to inspection and strength 5/5 throughout Gait: normal gait Skin no rashes, warm and dry Neurologic patellar DTR's 2+ bilat, sensation intact Psychiatric Orientation: alert and oriented x 3 Discharge Data Consultations 03/22/18 16:13 Consult Case Management - Discharge Planning Routine Consult Hospitalist Routine Procedures Performed Operation Date: 03/22/18 11:25 Actual Procedures p L2-L3 Decompression and Fusion, - Jersey Degroot DO s L3-S1 Removal of Hardware (Orthros) - Jersey Degroot DO Hospital Course (1) Lumbar radiculopathy: Patient is improving postoperative day #3. I encouraged him to continue walking. He has met discharge criteria we will discharge him to home. He is to change dressing once daily until its dry. Once the incision is dry he may start to shower. He should avoid any full bending at the waist and reviewed the rest of his discharge instructions in detail. We will see him in the office in approximately 2 weeks. Patient overall had an uncomplicated hospital course. Lab values were stable. He may progress in physical therapy. Pain was continuing to improve daily. Discharge Instructions per lumbar fusion home instruction sheet Supervising Physician Co-Signing Physician Notes Dr. Jersey Degroot
== END 2018-03-25 10:55 | disposition home or self-care (01) | DRG 454 ==
LOC: ASU 08:18 → 3E 15:07
DX: M51.16 Intervertebral disc disorders with radiculopathy, lumbar region; Z98.1 Arthrodesis status; E66.01 Morbid (severe) obesity due to excess calories; Z99.89 Dependence on other enabling machines and devices; G47.30 Sleep apnea, unspecified; Z79.82 Long term (current) use of aspirin; Z95.2 Presence of prosthetic heart valve; Z79.899 Other long term (current) drug therapy; G62.9 Polyneuropathy, unspecified; I25.10 Atherosclerotic heart disease of native coronary artery without angina pectoris; Z68.41 Body mass index [BMI] 40.0-44.9, adult; I10 Essential (primary) hypertension; Z88.8 Allergy status to other drugs, medicaments and biological substances

== ENCOUNTER 2020-12-24 08:41 | Inpatient (IN) ==
[2020-12-24] MEDS ORDERED: MoRPHine SULFATE 4 MG/ML 1 ML CARP\\VIAL IV PRN ×2 (09:17→18:39)
[2020-12-24] MEDS ORDERED: SODIUM CHLORIDE 0.9% 1000ML 1,000 ML IV STA (09:17)
[2020-12-24] MEDS ORDERED: ONDANSETRON INJ 2 MG/ML 2 ML VIAL IV STA (09:17)
--- NOTE | 2020-12-24 09:24 | Emergency Department Note ---
Impression & Plan SBO (small bowel obstruction), Incarcerated hernia, Central abdominal pain ED Provider Note NAME: KARAN KIMBLE AGE: 75 SEX: M : 1945 ARRIVES VIA: Walk-In INFORMANT: [Patient] ED PROVIDER(S): [Per Cisneros MD] CHIEF COMPLAINT: Abdominal pain HISTORY OF PRESENT ILLNESS: The patient is a 75-year-old male who presents to the ER with about 18 hours of abdominal pain. The pain is in the mid abdomen and he has felt a lump. The pain is a 7/10. He has had nausea and vomiting. No bowel movement in 2 days. The patient states that the pain started when he was sorting food, he was doing some lifting. The patient has not had fever or chills. No cough or cold symptoms. No urinary complaints. He has had a partial colectomy and diverticulitis in the past. No history of previous hernia. REVIEW OF SYSTEMS: See HPI for pertinent positives and negatives. A total of ten systems were reviewed and were otherwise negative. PMHx/PSHx: See Below SOCIAL HISTORY: See Below. PHYSICAL EXAM: GENERAL: Patient is in no acute distress. HEENT: No acute trauma, normocephalic atraumatic, mucous membranes moist, no nasal congestion, no scleral icterus. NECK: No stridor, no adenopathy, no meningismus, trachea is midline. LUNGS: Clear to auscultation bilaterally, no wheeze, no rhonchi, breath sounds equal. HEART: 2/6 systolic murmur, regular rate and rhythm. ABDOMEN: Soft. The patient has a 3 to 4 cm mass in the mid abdomen superior to the umbilicus. This area is quite tender. No erythema to the skin noted. The rest of the abdomen is nontender. EXTREMITIES: No cyanosis or edema, full range of motion of all the joints without pain or difficulty, no signs for acute trauma. NEUROLOGIC: Oriented x 3, no acute motor or sensory deficits, no focal weakness. SKIN: No rash, no jaundice, no diaphoresis. DIFFERENTIAL DIAGNOSIS: Appendicitis, testicular torsion, diverticulitis, UTI, obstruction, mesenteric ischemia, aortic pathology, inflammatory bowel disease, renal colic, PUD, pancreatitis, biliary pathology, hernia, volvulus, constipation, as well as other pathologies. EMERGENCY DEPARTMENT COURSE/PROCEDURES: ECG: Indication was abdominal pain. The ECG shows a sinus rhythm with a first-degree AV block. There is a right bundle branch block and some LVH. There is no ST elevation, no PVCs. There is some baseline artifact. The QTc is 468. Continuous Cardiac Monitoring: An order was placed for continuous cardiac monitoring. The monitor shows a rate of 59 with sinus bradycardia with a first- degree AV block. MEDICAL DECISION MAKING: There is no leukocytosis or concerning anemia. There is a normal platelet count. No significant electrolyte abnormality or kidney failure. Lactic acid level is not elevated making bowel ischemia less likely. There was no concerning liver enzyme elevation. No evidence for pancreatitis. Covid testing returned negative. Chest film did not show pneumonia or free air. Abdominal and pelvis CT shows a small bowel obstruction secondary to an incarcerated hernia. On exam, the patient did have a 4 to 5 cm firm mass in the mid abdomen that was not reducible. The area was quite tender. The patient received IV saline, 1 L. He received IV Zofran, IV morphine. He was made NPO. He had an NG tube ordered to be placed to low intermittent suction. I talked the patient about his findings, I did speak with the corrections caseworker. I talked to the general surgical service. The patient is being seen by surgery and will likely undergo an operation for this hernia finding. Past Med/Surg History Medical History CAD (coronary artery disease) Cardiac murmur Constipation Diabetes mellitus type 2 in obese Diabetes mellitus, type 2 diet controlled Diverticular disease Hypertension Lumbar radiculopathy Lumbar stenosis with neurogenic claudication Morbid obesity Osteoarthritis Peripheral neuropathy Sleep apnea CPAP Surgical History H/O colonoscopy 10/2018 repeat colonoscopy in 3 years History of cardiac cath 2016 - [facility] - PRE OP VALVE REPLACEMENT - NO STENTS/ANGIOPLASTY History of colectomy (~1988) PARTIAL FOR DIVERTIVCULITIS History of heart valve replacement (~09/2016) AORTIC VALVE-[facility] 09/2016 - FOLLOWS W/ DR. DARLING History of spinal fusion x2. lumbar spine History of surgical removal of skin lesion x3 on back--basal cell Dr. Hernandez History of total knee replacement Bilateral Hx of cataract surgery Status post transcatheter aortic valve replacement Family History Mother Diabetes mellitus, type 2 Stroke Hypertension Kidney disease Kidney stones Sister Diabetes mellitus, type 2 Gallbladder disease Brother Diabetes mellitus, type 2 Father Myocardial infarction Alcohol abuse Other Family history of diabetes mellitus Denies family history of Ovarian cancer Prostate cancer Breast cancer Lung cancer Colorectal cancer Social History Smoking Status: Never smoker Second Hand Exposure: No; Hx Alcohol Use: No Hx Substance Use: No Preferred Language: Sri [place]ankan Communication Ability: Effective Visual Impairment: Limited Hearing Ability: Normal [facility] Required: No Beliefs That Will Affect Care: None marital status: Single Current Living Situation: Alone 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al status: employed and retired 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, 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 [employer] How many Children do You have: 0 Feels Safe at Home: Yes Childhood Exposure to Second-Hand Smoke: Yes (father) caffeine: Yes Dental Care, Regularly: No Physical Activity Frequency: Does not Exercise Seatbelt Use: always Sunscreen Use: Yes Assistive Devices: Glasses Allergies Allergies Allergy/AdvReac Type Severity Reaction Status Date / Time lisinopril Allergy Severe Swelling Verified 12/24/20 10:45 of Lip/Tongue/Throat Home Meds Home Medications Medication Instructions Recorded Confirmed multivitamin 1 tab PO QAM 12/25/17 12/24/20 elderberry fruit 200 mg capsule 1,500 mg PO BID cap 12/17/19 12/24/20 blood sugar diagnostic (OneTouch ea 12/08/20 12/17/20 Ultra Blue Test Strip) blood-glucose meter (OneTouch ea 12/08/20 12/17/20 Ultra2 Meter) aspirin 81 mg tablet,delayed 81 mg PO DAILY 12/24/20 12/24/20 release Previous Rx's Medication Instructions Recorded lancets (LastRoomTouch UltraSoft #100 ea 06/19/20 Lancets) metformin 500 mg tablet 1,000 mg PO BID #360 tab 06/19/20 valsartan 80 1 tab PO QAM #90 tab 08/04/20 mg-hydrochlorothiazide 12.5 mg tablet rosuvastatin 20 mg tablet (Crestor) 20 mg PO DAILY #90 tab 09/01/20 gabapentin 600 mg tablet 600 mg PO TID #270 tab 09/18/20 Results & Data (ED) Vital Signs Vital Signs - 24 hr 12/24/20 08:52 12/24/20 09:17 12/24/20 09:19 Temperature 36.6 C Temperature Source Temporal Artery Scan Pulse Rate 59 L 59 L Pulse Rate [Apical] Pulse Rate [Right Finger] 59 L Pulse Rhythm Regular Pulse Rhythm [Apical] Pulse Rhythm [Right Finger] Regular Pulse Strength [Right Finger] Normal Respiratory Rate 18 18 18 Respiratory Effort / Characteristics Non-Labored Non-Labored Spontaneous Respiratory Depth Normal Normal Respiratory Pattern Regular Blood Pressure [Right Arm] 194/90 H Blood Pressure Mean [Right Arm] 124 Blood Pressure Position [Right Arm] Sitting Pulse Oximetry 96 95 95 Oxygen Delivery Method Room Air Room Air Room Air Oxygen Flow Rate Sepsis Recent Fever Within 48 Hours No Sepsis New/Unexplained Change in Mental Status No Sepsis Action Taken by Nursing No Action Required 12/24/20 11:07 12/24/20 12:12 12/24/20 12:20 Temperature 36.9 C Temperature Source Oral Pulse Rate Pulse Rate [Apical] Pulse Rate [Right Finger] 73 58 L 55 L Pulse Rhythm Pulse Rhythm [Apical] Pulse Rhythm [Right Finger] Regular Pulse Strength [Right Finger] Normal Respiratory Rate 17 14 16 Respiratory Effort / Characteristics Non-Labored Spontaneous Respiratory Depth Normal Respiratory Pattern Regular Blood Pressure [Right Arm] 168/77 H 173/70 H 186/76 H Blood Pressure Mean [Right Arm] 107 104 112 Blood Pressure Position [Right Arm] Sitting Pulse Oximetry 96 98 Oxygen Delivery Method Room Air Room Air Room Air Oxygen Flow Rate Sepsis Recent Fever Within 48 Hours Sepsis New/Unexplained Change in Mental Status Sepsis Action Taken by Nursing 12/24/20 12:23 12/24/20 15:12 12/24/20 15:20 Temperature 36.0 C L Temperature Source Temporal Artery Scan Temporal Artery Scan Pulse Rate Pulse Rate [Apical] 90 73 Pulse Rate [Right Finger] Pulse Rhythm Pulse Rhythm [Apical] Regular Regular Pulse Rhythm [Right Finger] Pulse Strength [Right Finger] Respiratory Rate 16 13 Respiratory Effort / Characteristics Non-Labored Spontaneous Non-Labored Spontaneous Respiratory Depth Normal Normal Respiratory Pattern Regular Regular Blood Pressure [Right Arm] 160/74 H 153/72 H Blood Pressure Mean [Right Arm] 102 99 Blood Pressure Position [Right Arm] Semi-fowlers Semi-fowlers Pulse Oximetry 99 100 Oxygen Delivery Method Room Air Oxymask Oxymask Oxygen Flow Rate 10 10 Sepsis Recent Fever Within 48 Hours Sepsis New/Unexplained Change in Mental Status Sepsis Action Taken by Nursing 12/24/20 15:30 12/24/20 15:40 12/24/20 15:50 Temperature Temperature Source Temporal Artery Scan Temporal Artery Scan Temporal Artery Scan Pulse Rate Pulse Rate [Apical] 78 69 73 Pulse Rate [Right Finger] Pulse Rhythm Pulse Rhythm [Apical] Regular Regular Regular Pulse Rhythm [Right Finger] Pulse Strength [Right Finger] Respiratory Rate 13 16 15 Respiratory Effort / Characteristics Non-Labored Spontaneous Non-Labored Spontaneous Non-Labored Spontaneous Respiratory Depth Normal Normal Normal Respiratory Pattern Regular Regular Regular Blood Pressure [Right Arm] 147/65 H 142/57 H 148/62 H Blood Pressure Mean [Right Arm] 92 85 90 Blood Pressure Position [Right Arm] Semi-fowlers Semi-fowlers Semi-fowlers Pulse Oximetry 99 96 96 Oxygen Delivery Method Oxymask Room Air Room Air Oxygen Flow Rate 10 Sepsis Recent Fever Within 48 Hours Sepsis New/Unexplained Change in Mental Status Sepsis Action Taken by Nursing 12/24/20 16:00 12/24/20 16:10 12/24/20 16:20 Temperature 36.6 C Temperature Source Temporal Artery Scan Temporal Artery Scan Temporal Artery Scan Pulse Rate Pulse Rate [Apical] 75 74 88 Pulse Rate [Right Finger] Pulse Rhythm Pulse Rhythm [Apical] Regular Regular Regular Pulse Rhythm [Right Finger] Pulse Strength [Right Finger] Respiratory Rate 15 14 15 Respiratory Effort / Characteristics Non-Labored Spontaneous Non-Labored Spontaneous Non-Labored Spontaneous Respiratory Depth Normal Normal Normal Respiratory Pattern Regular Regular Regular Blood Pressure [Right Arm] 138/63 148/65 H 147/61 H Blood Pressure Mean [Right Arm] 88 92 89 Blood Pressure Position [Right Arm] Semi-fowlers Semi-fowlers Semi-fowlers Pulse Oximetry 96 95 95 Oxygen Delivery Method Room Air Room Air Room Air Oxygen Flow Rate Sepsis Recent Fever Within 48 Hours Sepsis New/Unexplained Change in Mental Status Sepsis Action Taken by Nursing 12/24/20 16:37 12/24/20 17:02 Temperature 36.6 C 37.5 C Temperature Source Oral Oral Pulse Rate Pulse Rate [Apical] Pulse Rate [Right Finger] 77 89 Pulse Rhythm Pulse Rhythm [Apical] Pulse Rhythm [Right Finger] Regular Regular Pulse Strength [Right Finger] Normal Normal Respiratory Rate 18 18 Respiratory Effort / Characteristics Non-Labored Spontaneous Non-Labored Spontaneous Respiratory Depth Normal Normal Respiratory Pattern Regular Regular Blood Pressure [Right Arm] 160/65 H 168/68 H Blood Pressure Mean [Right Arm] 96 101 Blood Pressure Position [Right Arm] Sitting Sitting Pulse Oximetry 96 97 Oxygen Delivery Method Room Air Room Air Oxygen Flow Rate Sepsis Recent Fever Within 48 Hours Sepsis New/Unexplained Change in Mental Status Sepsis Action Taken by [facility] Medications Current Medication List: was personally reviewed by me Laboratory Data Attestation: I reviewed the patient's lab results. Result diagrams: 12/24/20 09:10 12/24/20 09:10 Lab Results 12/24/20 12/24/20 12/24/20 Range/Units 09:10 09:10 10:00 WBC 8.24 (4.8-10.8) K/uL RBC 4.70 (4.7-6.1) M/uL Hgb 14.2 (14.0-18.0) g/dL Hct 41.5 L (42-52) % MCV 88.3 (80-100) fL MCH 30.2 (25-34) pg MCHC 34.2 (32-36) g/dL RDW Std Deviation 45.1 (36.4-46.3) fL RDW Coeff of Claudia 13.8 (11.5-14.5) % Plt Count 205 (130-400) K/uL MPV 10.7 H (7.4-10.4) fL Immature Gran % (Auto) 0.2 % Neut % (Auto) 85.1 % Lymph % (Auto) 7.2 % Tompkins % (Auto) 7.2 % Eos % (Auto) 0.2 % Baso % (Auto) 0.1 % Neut # (Auto) 7.01 H (1.4-6.5) K/uL Lymph # (Auto) 0.59 L (1.2-3.4) K/uL Tompkins # (Auto) 0.59 (0.11-0.59) K/uL Eos # (Auto) 0.02 (0-0.5) K/uL Baso # (Auto) 0.01 (0-0.2) K/uL Immature Gran # (Auto) 0.02 (0.00-0.02) K/uL Sodium 136 (136-145) mmol/L Potassium 3.7 (3.5-5.1) mmol/L Chloride 101 (98-107) mmol/L Carbon Dioxide 27 (21-32) mmol/L Anion Gap 8.0 (3-11) BUN 17 (7-18) mg/dl Creatinine 0.90 (0.6-1.4) mg/dl Est Cr Clr Drug Dosing 80.7 ml/min Est GFR ( Amer) 95.8 ml/min Est GFR (Non-Af Amer) 82.7 ml/min BUN/Creatinine Ratio 19.0 (10-20) Glucose 149 H (70-99) mg/dl POC Glucose (70-99) mg/dl Lactate (0.4-2.0) mmol/L Calcium 10.1 (8.5-10.1) mg/dl Total Bilirubin 0.7 (0.2-1) mg/dl AST 20 (15-37) U/L ALT 33 (12-78) U/L Alkaline Phosphatase 99 (45-117) U/L Total Protein 8.1 (6.4-8.2) gm/dl Albumin 4.0 (3.4-5.0) gm/dl Globulin 4.1 H (2.5-4.0) gm/dl Albumin/Globulin Ratio 1.0 (0.9-2) Lipase 91 (73-393) U/L COVID-19 Eval Order Covid19 at [facility] SARS-CoV-2 (PCR) (Negative) 12/24/20 12/24/20 12/24/20 Range/Units 10:00 10:13 15:17 WBC (4.8-10.8) K/uL RBC (4.7-6.1) M/uL Hgb (14.0-18.0) g/dL Hct (42-52) % MCV (80-100) fL MCH (25-34) pg MCHC (32-36) g/dL RDW Std Deviation (36.4-46.3) fL RDW Coeff of Claudia (11.5-14.5) % Plt Count (130-400) K/uL MPV (7.4-10.4) fL Immature Gran % (Auto) % Neut % (Auto) % Lymph % (Auto) % Tompkins % (Auto) % Eos % (Auto) % Baso % (Auto) % Neut # (Auto) (1.4-6.5) K/uL Lymph # (Auto) (1.2-3.4) K/uL Tompkins # (Auto) (0.11-0.59) K/uL Eos # (Auto) (0-0.5) K/uL Baso # (Auto) (0-0.2) K/uL Immature Gran # (Auto) (0.00-0.02) K/uL Sodium (136-145) mmol/L Potassium (3.5-5.1) mmol/L Chloride (98-107) mmol/L Carbon Dioxide (21-32) mmol/L Anion Gap (3-11) BUN (7-18) mg/dl Creatinine (0.6-1.4) mg/dl Est Cr Clr Drug Dosing ml/min Est GFR ( Amer) ml/min Est GFR (Non-Af Amer) ml/min BUN/Creatinine Ratio (10-20) Glucose (70-99) mg/dl POC Glucose 135 H (70-99) mg/dl Lactate 1.7 (0.4-2.0) mmol/L Calcium (8.5-10.1) mg/dl Total Bilirubin (0.2-1) mg/dl AST (15-37) U/L ALT (12-78) U/L Alkaline Phosphatase (45-117) U/L Total Protein (6.4-8.2) gm/dl Albumin (3.4-5.0) gm/dl Globulin (2.5-4.0) gm/dl Albumin/Globulin Ratio (0.9-2) Lipase (73-393) U/L COVID-19 Eval Order SARS-CoV-2 (PCR) NEGATIVE (Negative) Administered Medications Fentanyl Citrate (Fentanyl Citrate 100 Mcg/2 Ml Vial) 50 mcg IV Q5M PRN PRN Reason: PACU Use Only-Pain Stop: 12/24/20 20:49 Last Admin: 12/24/20 15:46 Dose: 50 mcg Documented by: [id number] Admin: 12/24/20 15:38 Dose: 50 mcg Documented by: [id number] Hydromorphone HCl (Hydromorphone Inj 2 Mg/Ml Syr/Vial) 0.5 mg IV Q5M PRN PRN Reason: PACU Use Only-Pain Stop: 12/24/20 20:50 Last Admin: 12/24/20 16:05 Dose: 0.5 mg Documented by: [id number] Admin: 12/24/20 16:00 Dose: 0.5 mg Documented by: [id number] Morphine Sulfate (Morphine Sulfate 4 Mg/Ml 1 Ml Carp\Vial) 4 mg IV Q15M PRN PRN Reason: Pain Stop: 01/07/21 09:16 Last Admin: 12/24/20 09:58 Dose: 4 mg Documented by: [id number] Discontinued Medications Cefoxitin Sodium (Cefoxitin Sod 1 Gm Vial) Confirm Administered Dose 2,000 mg .ROUTE .STK-MED ONE Stop: 12/24/20 11:19 Last Admin: 12/24/20 14:36 Dose: Not Given Documented by: [id number] Cefoxitin Sodium (Cefoxitin Sod 1 Gm Vial) Confirm Administered Dose 2,000 mg .ROUTE .STK-MED ONE Stop: 12/24/20 14:31 Last Admin: 12/24/20 14:38 Dose: 2,000 mg Documented by: [id number] Sodium Chloride (Nss 1000ml) 1,000 mls @ 999 mls/hr IV .Q1H1M STA Stop: 12/24/20 10:17 Last Infusion: 12/24/20 10:58 Dose: 0 mls/hr Documented by: [id number] Admin: 12/24/20 09:57 Dose: 999 mls/hr Documented by: [id number] Cefoxitin Sodium (Mefoxin) 2,000 mg in 60 mls @ 100 mls/hr IV NOW STA Stop: 12/24/20 12:58 Last Admin: 12/24/20 13:23 Dose: 100 mls/hr Documented by: [id number] Ondansetron HCl (Ondansetron Inj 2 Mg/Ml 2 Ml Vial) 4 mg IV NOW STA Stop: 12/24/20 09:18 Last Admin: 12/24/20 09:58 Dose: 4 mg Documented by: [id number] Imaging Data Radiologist's Impression: Abdomen/Pelvis CT 12/24/20 09:[address] WITHOUT CONTRAST CT DOSE: 1412.28 mGy.cm HISTORY: Nausea. mid abd hernia on exam TECHNIQUE: Multiaxial CT images of the abdomen and pelvis were performed without contrast. A dose lowering technique was utilized adhering to the principles of ALARA. COMPARISON STUDY: None. FINDINGS: The lung bases are clear. No pneumoperitoneum. No pneumatosis. Posterior decompression and fusion from L2 through S1 with pedicle screws and rods. No fractures identified. There is a partially visualized aortic valve stent. The unenhanced liver, gallbladder, spleen, adrenal glands, and pancreas are unremarkable. No renal or ureteral stones. No hydronephrosis. The bladder is not well-distended but appears unremarkable. There are few bilateral renal hypodense lesions within the largest in the right kidney measuring 3.6 cm. These are incompletely characterized on this noncontrast study but statistically represent cysts. Normal caliber abdominal aorta. No retroperitoneal lymphadenopathy. There is a small midline epigastric hernia containing a knuckle of the mid transverse colon. There is an additional midline upper abdominal ventral hernia which contains a short segment of jejunum best seen on image 198. The hernia neck measures approximately 9 mm. The hernia sac measures 4 cm. There is mild fat stranding within and surrounding the hernia sac. The hernia sac contains a mildly dilated loop of jejunum. Distal to the hernia sac the small bowel is decompressed. Proximal to the hernia sac in the small bowel is distended and fluid-filled. Therefore, this is consistent with the transition point for a small bowel obstruction. The hernia is likely incarcerated. Normal appendix. Trace fluid along the right paracolic gutter. A few colonic diverticula. No evidence for acute diverticulitis. IMPRESSION: 1. Small bowel obstruction as described above secondary to an incarcerated midline ventral hernia containing a short segment of small bowel. This corresponds to the transition point of the small bowel obstruction. 2. There is an additional midline epigastric hernia containing a knuckle of the transverse colon. However, this does not result in an obstruction at this time. 3. Additional findings as described above. ACT 112: Negative or not required by law. Electronically signed by: Kunal Myrick M.D. 12/24/2020 10:17 AM Chest X-Ray 12/24/20 09:17 XR chest 1V portable HISTORY: Generalized abdominal pain. Small bowel obstruction. COMPARISON: Chest 03/02/2018. FINDINGS: The heart remains mildly enlarged. No pneumothorax. No pleural effusions. The lungs are clear. Evidence for previous cardiac valve surgery. IMPRESSION: No significant change compared to the prior study. No acute process. ACT 112: Negative or not required by law. Electronically signed by: Kunal Myrick M.D. 12/24/2020 10:19 AM Discharge Plan Visit Data Chief Complaint: Abdominal Pain Stated Complaint: ABDOMINAL PAIN/NAUSEA ED Provider: Per Cisneros Discharge Problem: SBO (small bowel obstruction), Incarcerated hernia, Central abdominal pain Patient Disposition: Admitted As Inpatient Condition: Fair Discharge Instructions Interventions: ED Discharge Assessment Last Done: 12/24/20 12:23
[2020-12-24 09:36] LABS: Basophils # (auto) 0.01 K/uL (0-0.2); Basophils % (auto) 0.1 %; Eosinophils # (auto) 0.02 K/uL (0-0.5); Eosinophils % (auto) 0.2 %; Hematocrit (blood only) 41.5 % (42-52); Hemoglobin 14.2 g/dL (14.0-18.0); Immature Granulocytes # (auto) 0.02 K/uL (0.00-0.02); Immature Granulocytes % (auto) 0.2 %; Lymphocytes # (auto) 0.59 K/uL (1.2-3.4); Lymphocytes % (auto) 7.2 %; Mean Corpuscular Hemoglobin 30.2 pg (25-34); Mean Corpuscular Hgb Conc 34.2 g/dL (32-36); Mean Corpuscular Volume 88.3 fL (80-100); Mean Platelet Volume 10.7 fL (7.4-10.4); Monocytes # (auto) 0.59 K/uL (0.11-0.59); Monocytes % (auto) 7.2 %; Neutrophils # (auto) 7.01 K/uL (1.4-6.5); Neutrophils % (auto) 85.1 %; Platelet Count 205 K/uL (130-400); RDW Coefficient of Variation 13.8 % (11.5-14.5); RDW Standard Deviation 45.1 fL (36.4-46.3); White Blood Count 8.24 K/uL (4.8-10.8)
[2020-12-24 10:01] LABS: Calcium 10.1 mg/dl (8.5-10.1); Creatinine Clr Calc Pharmacy 80.7 ml/min; Est GFR (African American) 95.8 ml/min; Est GFR (Non-African American) 82.7 ml/min; Potassium 3.7 mmol/L (3.5-5.1)
[2020-12-24 10:04] LABS: Bilirubin,Total 0.7 mg/dl (0.2-1); Globulin 4.1 gm/dl (2.5-4.0); Total Protein 8.1 gm/dl (6.4-8.2)
--- NOTE | 2020-12-24 10:19 | CT Scan Report ---
ABDOMEN AND PELVIS CT WITHOUT CONTRAST CT DOSE: 1412.28 mGy.cm HISTORY: Nausea. mid abd hernia on exam TECHNIQUE: Multiaxial CT images of the abdomen and pelvis were performed without contrast. A dose lo wering technique was utilized adhering to the principles of ALARA. COMPARISON STUDY: None. FINDINGS: The lung bases are clear. No pneumoperitoneum. No pneumatosis. Posterior decompression and fusion from L2 through S1 with pedicle screws and rods. No fractures identified. There is a partially visualized aortic valve stent. The unenhanced liver, gallbladder, spleen, adrenal glands, and pancre as are unremarkable. No renal or ureteral stones. No hydronephrosis. The bladder is not well-distende d but appears unremarkable. There are few bilateral renal hypodense lesions within the largest in the right kidney measuring 3.6 cm. These are incompletely characterized on this noncontrast study but st atistically represent cysts. Normal caliber abdominal aorta. No retroperitoneal lymphadenopathy. Ther e is a small midline epigastric hernia containing a knuckle of the mid transverse colon. There is an additional midline upper abdominal ventral hernia which contains a short segment of jejunum best seen on image 198. The hernia neck measures approximately 9 mm. The hernia sac measures 4 cm. There is mi ld fat stranding within and surrounding the hernia sac. The hernia sac contains a mildly dilated loop of jejunum. Distal to the hernia sac the small bowel is decompressed. Proximal to the hernia sac in the small bowel is distended and fluid-filled. Therefore, this is consistent with the transition poin t for a small bowel obstruction. The hernia is likely incarcerated. Normal appendix. Trace fluid anurag g the right paracolic gutter. A few colonic diverticula. No evidence for acute diverticulitis. IMPRESSION: 1. Small bowel obstruction as described above secondary to an incarcerated midline ventral hernia con taining a short segment of small bowel. This corresponds to the transition point of the small bowel o bstruction. 2. There is an additional midline epigastric hernia containing a knuckle of the transverse colon. How ever, this does not result in an obstruction at this time. 3. Additional findings as described above. ACT 112: Negative or not required by law. Electronically signed by: Kunal Myrick M.D. 12/24/2020 10:17 AM
--- NOTE | 2020-12-24 10:20 | XRay Report ---
XR chest 1V portable HISTORY: Generalized abdominal pain. Small bowel obstruction. COMPARISON: Chest 03/02/2018. FINDINGS: The heart remains mildly enlarged. No pneumothorax. No pleural effusions. The lungs are lizandro ar. Evidence for previous cardiac valve surgery. IMPRESSION: No significant change compared to the prior study. No acute process. ACT 112: Negative or not required by law. Electronically signed by: Kunal Myrick M.D. 12/24/2020 10:19 AM
--- NOTE | 2020-12-24 10:57 | History & Physical Report ---
Date of Service December 24, 2020 Assessment & Plan (1) Incarcerated incisional hernia: (2) History of heart valve replacement: (3) Diabetes mellitus type 2 in obese: (4) Sleep apnea: (5) CAD (coronary artery disease): Plan: 75-year-old gentleman with incarcerated upper midline incisional hernia containing a small loop of small bowel. There is a small bowel obstruction proximal to this. I am unable to reduce it in the emergency department. I have discussed the risks and benefits of exploratory laparotomy, incisional hernia repair, and possible small bowel resection with him. All his questions were answered, and he is agreeable to proceed. We will take him to the operating room at the earliest possible convenience. Covid test is pending. History of Present Illness Chief Complaint: upper abdominal pain Primary Care Provider: Amrit Paz DO 75-year-old gentleman presents with severe upper abdominal pain. The pain started yesterday after lifting heavy object. The pain came suddenly. It has been associated with nausea and vomiting. He has not passed gas since yesterday. He last ate yesterday morning. He denies fevers and chills. He denies chest pain, shortness of breath, nasal congestion. He has had a prior colon resection. He has a midline incision. CT scan demonstrates a loop of small bowel stuck in a hernia sac with surrounding inflammation stranding. He has a small bowel obstruction proximal to this point. He has had a prior aortic valve replacement with a biological valve. He is currently on aspirin but no other blood thinner. Allergies Allergy/AdvReac Type Severity Reaction Status Date / Time lisinopril Allergy Severe Swelling Verified 12/24/20 10:45 of Lip/Tongue/Throat Home Medications Medication Instructions Recorded Confirmed Type multivitamin 1 tab PO QAM 12/25/17 12/24/20 History elderberry fruit 200 mg capsule 1,500 mg PO BID cap 12/17/19 12/24/20 History lancets (OneTouch UltraSoft #100 ea 06/19/20 12/17/20 Rx Lancets) metformin 500 mg tablet 1,000 mg PO BID #360 tab 06/19/20 12/24/20 Rx valsartan 80 1 tab PO QAM #90 tab 08/04/20 12/24/20 Rx mg-hydrochlorothiazide 12.5 mg tablet rosuvastatin 20 mg tablet (Crestor) 20 mg PO DAILY #90 tab 09/01/20 12/24/20 Rx gabapentin 600 mg tablet 600 mg PO TID #270 tab 09/18/20 12/24/20 Rx blood sugar diagnostic (OneTouch ea 12/08/20 12/17/20 History Ultra Blue Test Strip) blood-glucose meter (OneTouch ea 12/08/20 12/17/20 History Ultra2 Meter) aspirin 81 mg tablet,delayed 81 mg PO DAILY 12/24/20 12/24/20 History release Past Med/Surg History Medical History CAD (coronary artery disease) Cardiac murmur Constipation Diabetes mellitus type 2 in obese Diabetes mellitus, type 2 diet controlled Diverticular disease Hypertension Lumbar radiculopathy Lumbar stenosis with neurogenic claudication Morbid obesity Osteoarthritis Peripheral neuropathy Sleep apnea CPAP Surgical History H/O colonoscopy 10/2018 repeat colonoscopy in 3 years History of cardiac cath 2016 - [facility] - PRE OP VALVE REPLACEMENT - NO STENTS/ANGIOPLASTY History of colectomy (~1988) PARTIAL FOR DIVERTIVCULITIS History of heart valve replacement (~09/2016) [facility] 09/2016 - FOLLOWS W/ DR. DARLING History of spinal fusion x2. lumbar spine History of surgical removal of skin lesion x3 on back--basal cell Dr. Hernandez History of total knee replacement Bilateral Hx of cataract surgery Status post transcatheter aortic valve replacement Family History Mother Diabetes mellitus, type 2 Stroke Hypertension Kidney disease Kidney stones Sister Diabetes mellitus, type 2 Gallbladder disease Brother Diabetes mellitus, type 2 Father Myocardial infarction Alcohol abuse Other Family history of diabetes mellitus Denies family history of Ovarian cancer Prostate cancer Breast cancer Lung cancer Colorectal cancer Social History Smoking Status: Never smoker Second Hand Exposure: No; Hx Alcohol Use: No Hx Substance Use: No Preferred Language: Nauruan Communication Ability: Effective Visual Impairment: Limited Hearing Ability: Normal 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 Beliefs That Will Affect Care: None marital status: Single Current Living Situation: Alone 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al status: employed and retired 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, 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 [employer] How many Children do You have: 0 Feels Safe at Home: Yes Childhood Exposure to Second-Hand Smoke: Yes (father) caffeine: Yes Dental Care, Regularly: No Physical Activity Frequency: Does not Exercise Seatbelt Use: always Sunscreen Use: Yes Assistive Devices: Glasses Physical Exam Constitutional: WD/WN, vitals as above Eyes: PERRL, conjunctivae normal, anicteric sclerae Neck: trachea midline, no thyromegaly Respiratory: normal respiratory effort, lungs clear to auscultation Cardiovascular: RRR, no murmur, no edema Gastrointestinal (Abdomen): Inspection/Auscultation: abdomen normal to inspection and + abdominal surgical scar (Midline); abdomen not distended Percussion/Palpation: + abdomen tender (Upper midline and area of incarcerated hernia) and abdomen soft; no guarding and abdomen not rigid Musculoskeletal: Extremities: no cyanosis and no clubbing Skin: no rashes, warm and dry Psychiatric: A+Ox3, euthymic affect Results & Data Results & Data ([facility]) Vital Signs (Past 12 Hours) Vital Signs Temp Pulse Pulse Resp BP Pulse Ox 12/24/20 09:19 59 L 18 194/90 H 95 12/24/20 09:17 59 L 18 95 12/24/20 08:52 36.6 C 59 L 18 96 Laboratory Results 12/24/20 12/24/20 12/24/20 Range/Units 10:13 10:00 10:00 WBC (4.8-10.8) K/uL RBC (4.7-6.1) M/uL Hgb (14.0-18.0) g/dL Hct (42-52) % MCV (80-100) fL MCH (25-34) pg MCHC (32-36) g/dL RDW Std Deviation (36.4-46.3) fL RDW Coeff of Claudia (11.5-14.5) % Plt Count (130-400) K/uL MPV (7.4-10.4) fL Immature Gran % (Auto) % Neut % (Auto) % Lymph % (Auto) % Rabun % (Auto) % Eos % (Auto) % Baso % (Auto) % Neut # (Auto) (1.4-6.5) K/uL Lymph # (Auto) (1.2-3.4) K/uL Rabun # (Auto) (0.11-0.59) K/uL Eos # (Auto) (0-0.5) K/uL Baso # (Auto) (0-0.2) K/uL Immature Gran # (Auto) (0.00-0.02) K/uL Sodium (136-145) mmol/L Potassium (3.5-5.1) mmol/L Chloride (98-107) mmol/L Carbon Dioxide (21-32) mmol/L Anion Gap (3-11) BUN (7-18) mg/dl Creatinine (0.6-1.4) mg/dl Est Cr Clr Drug Dosing ml/min Est GFR ( Amer) ml/min Est GFR (Non-Af Amer) ml/min BUN/Creatinine Ratio (10-20) Glucose (70-99) mg/dl Lactate 1.7 (0.4-2.0) mmol/L Calcium (8.5-10.1) mg/dl Total Bilirubin (0.2-1) mg/dl AST (15-37) U/L ALT (12-78) U/L Alkaline Phosphatase (45-117) U/L Total Protein (6.4-8.2) gm/dl Albumin (3.4-5.0) gm/dl Globulin (2.5-4.0) gm/dl Albumin/Globulin Ratio (0.9-2) Lipase (73-393) U/L COVID-19 Eval Order Covid19 at [facility] SARS-CoV-2 (PCR) Pending 12/24/20 12/24/20 Range/Units 09:10 09:10 WBC 8.24 (4.8-10.8) K/uL RBC 4.70 (4.7-6.1) M/uL Hgb 14.2 (14.0-18.0) g/dL Hct 41.5 L (42-52) % MCV 88.3 (80-100) fL MCH 30.2 (25-34) pg MCHC 34.2 (32-36) g/dL RDW Std Deviation 45.1 (36.4-46.3) fL RDW Coeff of Claudia 13.8 (11.5-14.5) % Plt Count 205 (130-400) K/uL MPV 10.7 H (7.4-10.4) fL Immature Gran % (Auto) 0.2 % Neut % (Auto) 85.1 % Lymph % (Auto) 7.2 % Rabun % (Auto) 7.2 % Eos % (Auto) 0.2 % Baso % (Auto) 0.1 % Neut # (Auto) 7.01 H (1.4-6.5) K/uL Lymph # (Auto) 0.59 L (1.2-3.4) K/uL Rabun # (Auto) 0.59 (0.11-0.59) K/uL Eos # (Auto) 0.02 (0-0.5) K/uL Baso # (Auto) 0.01 (0-0.2) K/uL Immature Gran # (Auto) 0.02 (0.00-0.02) K/uL Sodium 136 (136-145) mmol/L Potassium 3.7 (3.5-5.1) mmol/L Chloride 101 (98-107) mmol/L Carbon Dioxide 27 (21-32) mmol/L Anion Gap 8.0 (3-11) BUN 17 (7-18) mg/dl Creatinine 0.90 (0.6-1.4) mg/dl Est Cr Clr Drug Dosing 80.7 ml/min Est GFR ( Amer) 95.8 ml/min Est GFR (Non-Af Amer) 82.7 ml/min BUN/Creatinine Ratio 19.0 (10-20) Glucose 149 H (70-99) mg/dl Lactate (0.4-2.0) mmol/L Calcium 10.1 (8.5-10.1) mg/dl Total Bilirubin 0.7 (0.2-1) mg/dl AST 20 (15-37) U/L ALT 33 (12-78) U/L Alkaline Phosphatase 99 (45-117) U/L Total Protein 8.1 (6.4-8.2) gm/dl Albumin 4.0 (3.4-5.0) gm/dl Globulin 4.1 H (2.5-4.0) gm/dl Albumin/Globulin Ratio 1.0 (0.9-2) Lipase 91 (73-393) U/L COVID-19 Eval Order SARS-CoV-2 (PCR) Diagnostic Findings ABDOMEN AND PELVIS CT WITHOUT CONTRAST CT DOSE: 1412.28 mGy.cm HISTORY: Nausea. mid abd hernia on exam TECHNIQUE: Multiaxial CT images of the abdomen and pelvis were performed without contrast. A dose lowering technique was utilized adhering to the principles of ALARA. COMPARISON STUDY: None. FINDINGS: The lung bases are clear. No pneumoperitoneum. No pneumatosis. Posterior decompression and fusion from L2 through S1 with pedicle screws and rods. No fractures identified. There is a partially visualized aortic valve stent. The unenhanced liver, gallbladder, spleen, adrenal glands, and pancreas are unremarkable. No renal or ureteral stones. No hydronephrosis. The bladder is not well-distended but appears unremarkable. There are few bilateral renal hypodense lesions within the largest in the right kidney measuring 3.6 cm. These are incompletely characterized on this noncontrast study but statistically represent cysts. Normal caliber abdominal aorta. No retroperitoneal lymphadenopathy. There is a small midline epigastric hernia containing a knuckle of the mid transverse colon. There is an additional midline upper abdominal ventral hernia which contains a short segment of jejunum best seen on image 198. The hernia neck measures approximately 9 mm. The hernia sac measures 4 cm. There is mild fat stranding within and surrounding the hernia sac. The hernia sac contains a mildly dilated loop of jejunum. Distal to the hernia sac the small bowel is decompressed. Proximal to the hernia sac in the small bowel is distended and fluid-filled. Therefore, this is consistent with the transition point for a small bowel obstruction. The hernia is likely incarcerated. Normal appendix. Trace fluid along the right paracolic gutter. A few colonic diverticula. No evidence for acute diverticulitis. IMPRESSION: 1. Small bowel obstruction as described above secondary to an incarcerated midline ventral hernia containing a short segment of small bowel. This corresponds to the transition point of the small bowel obstruction. 2. There is an additional midline epigastric hernia containing a knuckle of the transverse colon. However, this does not result in an obstruction at this time. 3. Additional findings as described above. (1) CAD (coronary artery disease) Coronary Disease-Associated Artery/Lesion type: pe[place] artery [place] vs. transplanted heart: pechanga heart Associated angina: without angina Qualified Code(s): I25.10 - Atherosclerotic heart disease of pe[place]anga coronary artery without angina pectoris
--- NOTE | 2020-12-24 11:26 | Anesthesiology Consultation ---
Date of Service December 24, 2020 Assessment & Plan (1) Encounter for pre-operative examination: Chart Review Chart Review: Acceptable Risk for Surgery and Patient NOT seen in Pre Admission Testing Consults Requested none History Surgery Operation Date: 12/24/20 09:50 Proposed Procedures p Exploratory Laparotomy, Incarcerated Incisional Hernia Repair, Possible Bowel Resection - Jarrett Sarkar MD Height/Weight Height: 5 ft 7 in Weight: 105.1 kg Allergies Allergy/AdvReac Type Severity Reaction Status Date / Time lisinopril Allergy Severe Swelling Verified 12/24/20 10:45 of Lip/Tongue/Throat Medications Home Medications Medication Instructions Recorded Confirmed Last Taken multivitamin 1 tab PO QAM 12/25/17 12/24/20 10/17/18 elderberry fruit 200 mg capsule 1,500 mg PO BID cap 12/17/19 12/24/20 Unknown lancets (WoraPayTouch UltraSoft #100 ea 06/19/20 12/17/20 Unknown Lancets) metformin 500 mg tablet 1,000 mg PO BID #360 tab 06/19/20 12/24/20 Unknown valsartan 80 1 tab PO QAM #90 tab 08/04/20 12/24/20 Unknown mg-hydrochlorothiazide 12.5 mg tablet rosuvastatin 20 mg tablet (Crestor) 20 mg PO DAILY #90 tab 09/01/20 12/24/20 Unknown gabapentin 600 mg tablet 600 mg PO TID #270 tab 09/18/20 12/24/20 Unknown blood sugar diagnostic (OneTouch ea 12/08/20 12/17/20 Unknown Ultra Blue Test Strip) blood-glucose meter (OneTouch ea 12/08/20 12/17/20 Unknown Ultra2 Meter) aspirin 81 mg tablet,delayed 81 mg PO DAILY 12/24/20 12/24/20 Unknown release Active Medications Generic Name Dose Route Start Last Admin Trade Name Freq PRN Reason Stop Dose Admin Morphine Sulfate 4 mg 12/24/20 09:17 12/24/20 09:58 Morphine Sulfate 4 Mg/Ml 1 Ml Carp\Vial IV 01/07/21 09:16 4 mg Q15M PRN Administration Pain Past Medical History Medical History CAD (coronary artery disease) Cardiac murmur Constipation Diabetes mellitus type 2 in obese Diabetes mellitus, type 2 diet controlled Diverticular disease Hypertension Lumbar radiculopathy Lumbar stenosis with neurogenic claudication Morbid obesity Osteoarthritis Peripheral neuropathy Sleep apnea CPAP Past Family History Family History Mother Diabetes mellitus, type 2 Stroke Hypertension Kidney disease Kidney stones Sister Diabetes mellitus, type 2 Gallbladder disease Brother Diabetes mellitus, type 2 Father Myocardial infarction Alcohol abuse Other Family history of diabetes mellitus Denies family history of Ovarian cancer Prostate cancer Breast cancer Lung cancer Colorectal cancer Past Surgical History Surgical History H/O colonoscopy 10/2018 repeat colonoscopy in 3 years History of cardiac cath 2016 - [facility] - PRE OP VALVE REPLACEMENT - NO STENTS/ANGIOPLASTY History of colectomy (~1988) PARTIAL FOR DIVERTIVCULITIS History of heart valve replacement (~09/2016) [facility] 09/2016 - FOLLOWS W/ DR. DARLING History of spinal fusion x2. lumbar spine History of surgical removal of skin lesion x3 on back--basal cell Dr. Hernandez History of total knee replacement Bilateral Hx of cataract surgery Status post transcatheter aortic valve replacement Social History Smoking Status: Never smoker Hx Alcohol Use: No Alcohol type: hard liquor alcohol intake frequency: holidays/special occasions only Hx Substance Use: No substance use type: does not use Physical Exam Vital Signs Last Vital Signs Temp 36.6 C 12/24/20 08:52 Pulse 58 L 12/24/20 12:12 Resp 14 12/24/20 12:12 BP 173/70 H 12/24/20 12:12 Pulse Ox 96 12/24/20 11:07 Testing Laboratory Results 12/24/20 09:10 12/24/20 09:10 Electrocardiogram Date: 12/24/20 Sinus rhythm (64) with 1st degree A-V block Right bundle branch block Left anterior fascicular block Bifascicular block Moderate voltage criteria for LVH, may be normal variant Cannot rule out Septal infarct , age undetermined Abnormal ECG When compared with ECG of 27-JUL-2017 12:11, ID interval has increased Minimal criteria for Septal infarct are now Present
[2020-12-24] MEDS ORDERED: ACETAMINOPHEN 1000 MG/100 ML IV IV ONE (11:35)
[2020-12-24] MEDS ORDERED: LIDOCAINE HCL/D5W 2000 MG/500 ML BAG IV ONE (11:39)
[2020-12-24] MEDS ORDERED: fentaNYL citrate 100 MCG/2 ML VIAL ONE (11:59)
[2020-12-24] MEDS ORDERED: ROCURONIUM BROMIDE 10 MG/ML 5 ML VIAL IV ONE (11:59)
[2020-12-24] MEDS ORDERED: ONDANSETRON INJ 2 MG/ML 2 ML VIAL ONE ×2 (11:59→14:50)
[2020-12-24] MEDS ORDERED: PROPOFOL IV EMULSION 10 MG/ML 20 ML VIAL IV ONE (11:59)
[2020-12-24] MEDS ORDERED: SUCCINYLCHOLINE CHLORIDE 20 MG/ML 10 ML VIAL IV ONE ×2 (11:59→13:43)
[2020-12-24] MEDS ORDERED: LIDOCAINE 2% 2 ML VIAL/AMP(20MG/ML) INFIL ONE (11:59)
[2020-12-24] MEDS ORDERED: KETAMINE 50 MG/5 ML SYRINGE ONE (12:00)
[2020-12-24] MEDS ORDERED: cefOXitin 2,000 MG/60 ML BAG IV STA (12:23)
[2020-12-24] MEDS ORDERED: ePHEDrine sulfate 50 MG/ML AMP IV PRN (12:49)
[2020-12-24] MEDS ORDERED: ONDANSETRON INJ 2 MG/ML 2 ML VIAL IV PRN ×2 (12:49→20:44)
[2020-12-24] MEDS ORDERED: ATROPINE SULFATE 0.1 MG/ML 10ML SYR IV PRN (12:49)
[2020-12-24] MEDS ORDERED: ePHEDrine sulfate 50 MG/ML SYR ONE (13:43)
[2020-12-24] MEDS ORDERED: GLYCOPYRROLATE 0.2 MG/ML VIAL ONE (13:44)
[2020-12-24] MEDS ORDERED: NEOSTIGMINE METHYLSULFATE 1 MG/ML 10ML VIAL ONE (13:44)
--- NOTE | 2020-12-24 14:55 | Post Operative Brief Note ---
Immediate Post Op Note v1 Date of Surgery December 24, 2020 Pre & Post Diagnosis Operation Date: 12/24/20 09:50 Pre-Op Diagnosis: Bowel obstruction Post-Op Diagnosis: Bowel obstruction I identified the patient and participated in the time-out.: Yes Procedure Operation Date: 12/24/20 09:50 Actual Procedures p Exploratory Laparotomy, Incarcerated Incisional Hernia Repair, Possible Bowel Resection(Not Applicable) - Jarrett Sarkar MD Surgeon Jarrett Sarkar MD Chair Trimmer DAPHNE Goldsmith Estimated Blood Loss 15 Findings Consistent with Post-Op Diagnosis Drains Zabala Catheter
--- NOTE | 2020-12-24 15:30 | Operative Report ---
Post Operative Report Pre & Post Diagnosis Operation Date: 12/24/20 09:50 Pre-Op Diagnosis: Bowel obstruction Post-Op Diagnosis: Bowel obstruction I identified the patient and participated in the time-out.: Yes Procedure Operation Date: 12/24/20 09:50 Actual Procedures p Exploratory Laparotomy, Incarcerated Incisional Hernia Repair, Small Bowel Resection(Not Applicable) - Jarrett Sarkar MD Surgeon Jarrett Sarkar MD Biometrics Analyst DAPHNE Goldsmith assisted with tissue retraction, camera op, closure Estimated Blood Loss 15 Findings Consistent with Post-Op Diagnosis Upper midline incisional hernia containing a loop of bowel. The bowel was ischemic. There is an additional hernia containing unobstructed transverse colon cephalad to this hernia. Small bowel resection reanastomosis. Hernia repaired with suture. Specimens Small bowel resection x2 Anesthesia Type General Complications No immediate complication Indications Incarcerated incisional hernia containing loop of bowel Description of Procedure The patient was taken to the operating room, placed supine on the operating table. A timeout was performed, perioperative antibiotics were administered. SCD boots were placed. After adequate anesthesia and analgesia was obtained, a Zabala catheter was placed, and the patient was prepped and draped in the normal sterile fashion. An upper midline incision was made with a 10 blade scalpel and carried down to the level of the fascia. The hernia was identified and was dissected free circumferentially. The fascia was opened above and I was able to open the fascia down to release the hernia. There was a loop of small bowel contained within the hernia. It was ischemic. The incision was opened to its fullest extent. Cephalad to the hernia containing small bowel, there was another hernia containing a nonobstructed loop of transverse colon. This was reduced in the hernia was joined to the fascial incision. Of note, there were other smaller Panamanian cheese type defects along the anterior abdominal wall that were joined to the larger incision. Adhesions of the omentum to the anterior abdominal wall were taken down with blunt dissection as well as electrocautery. Due to the ischemia of the bowel, the decision was made to proceed with small bowel resection reanastomosis. A ALEX stapler was used to resect the bowel. The mesentery was taken with the LigaSure device. The reanastomosis was effected with the ALEX stapler. The resulting common channel was closed in 2 layers. An inner layer of running 3-0 Vicryl, and outer layer of 3-0 silk Lembert sutures. Upon rechecking the anastomosis, one side of the anastomosis appeared quite ischemic. The decision was made therefore to redo the anastomosis. The anastomosis was excised with the ALEX stapler and LigaSure device. The reanastomosis again was fashioned with the ALEX stapler. The common channel defect was then closed in 2 layers. Inner layer of running 3-0 Vicryl, outer layer of 3-0 silk Lembert style sutures. A stay suture was placed at the base of the anastomosis. The resulting mesenteric defect was reapproximated with a running 3-0 Vicryl suture. The anastomosis appeared pink and viable. The abdomen was copiously irrigated and suctioned free and hemostasis was checked and attended to and was excellent. The fascia was closed with a running #1 Prolene suture. The skin was closed with surgical clips. Dressings were applied. He tolerated the procedure without complication, and was transferred in stable condition to the PACU. All instrument, needle, and sponge counts were correct at the end of the case. My hr administrative assistant was necessary throughout the procedure for tissue retraction, possible camera operation, and closure of the wounds. I understand that section 1842(b)(7)(D) of the Social Security act generally prohibits Medicare physician fee schedule payment for the services of assistants at surgery in teaching hospitals when qualified residents are available to furnish such services. I certify that the services for which payment is claimed were medically necessary and that no qualified resident was available to perform the services. I further understand that these services are subject to postpayment review by the Medicare carrier. I attest to the content of the Intraoperative Record and any orders documented therein. Any exceptions are noted below.
[2020-12-24] MEDS: fentaNYL citrate 100 MCG/2 ML VIAL IV PRN ×2 (15:38→15:46)
--- NOTE | 2020-12-24 15:52 | Anesthesiology Progress Note ---
Date of Service December 24, 2020 Anesthesia Post Procedure Vital Signs Vital Signs: Temp Pulse Pulse Pulse Resp BP Pulse Ox 12/24/20 15:40 69 16 142/57 H 96 12/24/20 15:30 78 13 147/65 H 99 12/24/20 15:20 73 13 153/72 H 100 12/24/20 15:12 36.0 C L 90 16 160/74 H 99 12/24/20 12:20 36.9 C 55 L 16 186/76 H 98 12/24/20 12:12 58 L 14 173/70 H 12/24/20 11:07 73 17 168/77 H 96 12/24/20 09:19 59 L 18 194/90 H 95 12/24/20 09:17 59 L 18 95 12/24/20 08:52 36.6 C 59 L 18 96 Pain Intensity Medial Abdomen: Pain Intensity: 6 Transfer of Care Handoff Completed per policy Notes Mental Status: alert / awake / arousable and participated in evaluation Patient Amnestic to Procedure: Yes Nausea / Vomiting: adequately controlled Pain: adequately controlled Airway Patency, RR, SpO2: stable & adequate BP & HR: stable & adequate Hydration State: stable & adequate Anesthetic Complications: no major complications apparent and Pt Satisfied with anesthetic care
--- NOTE | 2020-12-24 15:55 | Hospitalist Consultation ---
Date of Consultation December 24, 2020 Assessment & Plan (1) Incarcerated incisional hernia: 12/24/20 pt underwent laparoscopic correction of incarcerated incisional hernia (2) Diabetes mellitus type 2 in obese: Patient typically takes Metformin he will be n.p.o. postoperatively will have an insulin sliding scale holding his Metformin. If needing a basal dose after first 24 hours we can add a basal dose back. (3) Hypertension: Patient was started hydrochlorothiazide this is held hydralazine to be used as needed until the patient takes p.o. intake again (4) History of heart valve replacement: Patient reported a TAVR in 2017 he has been stable not requiring any additional cardiac medications. He was in the process of being referred to cardiology by his primary care provider due to some transient vision loss which has been on 2 occasions. He has had a negative work-up for cerebrovascular disease but is post have an echo for PFO. And an outpatient court monitor for A. fib (5) Hyperlipidemia: Patient typically takes Crestor 20 this is on hold but can be restarted History of Present Illness Attending Physician: Jarrett Sarkar MD History of Present Illness 75-year-old male taken emergent to the operating room after presenting to the ER with 18 hours of abdominal pain. He had no bowel movement last 2 days found to have incarcerated upper midline incisional hernia containing a small loop of small bowel. Patient had laparoscopic removal of the loop of bowel with repair of the hernia. Patient was seen postoperatively in the postanesthesia care unit. Patient does suffer from diabetes typically treated with Metformin He previously has had a TAVR. He has hypertension treated with losartan hydrochlorothiazide. Allergies Allergy/AdvReac Type Severity Reaction Status Date / Time lisinopril Allergy Severe Swelling Verified 12/24/20 10:45 of Lip/Tongue/Throat Home Medications Medication Instructions Recorded Confirmed Type multivitamin 1 tab PO QAM 12/25/17 12/24/20 History elderberry fruit 200 mg capsule 1,500 mg PO BID cap 12/17/19 12/24/20 History lancets (OneTouch UltraSoft #100 ea 06/19/20 12/17/20 Rx Lancets) metformin 500 mg tablet 1,000 mg PO BID #360 tab 06/19/20 12/24/20 Rx valsartan 80 1 tab PO QAM #90 tab 08/04/20 12/24/20 Rx mg-hydrochlorothiazide 12.5 mg tablet rosuvastatin 20 mg tablet (Crestor) 20 mg PO DAILY #90 tab 09/01/20 12/24/20 Rx gabapentin 600 mg tablet 600 mg PO TID #270 tab 09/18/20 12/24/20 Rx blood sugar diagnostic (OneTouch ea 12/08/20 12/17/20 History Ultra Blue Test Strip) blood-glucose meter (OneTouch ea 12/08/20 12/17/20 History Ultra2 Meter) aspirin 81 mg tablet,delayed 81 mg PO DAILY 12/24/20 12/24/20 History release Patient History Medical History CAD (coronary artery disease) Cardiac murmur Constipation Diabetes mellitus type 2 in obese Diabetes mellitus, type 2 diet controlled Diverticular disease Hypertension Lumbar radiculopathy Lumbar stenosis with neurogenic claudication Morbid obesity Osteoarthritis Peripheral neuropathy Sleep apnea CPAP Surgical History H/O colonoscopy 10/2018 repeat colonoscopy in 3 years History of cardiac cath 2016 - [facility] - PRE OP VALVE REPLACEMENT - NO STENTS/ANGIOPLASTY History of colectomy (~1988) PARTIAL FOR DIVERTIVCULITIS History of heart valve replacement (~09/2016) AORTIC VALVE-[facility] 09/2016 - FOLLOWS W/ DR. DARLING History of spinal fusion x2. lumbar spine History of surgical removal of skin lesion x3 on back--basal cell Dr. Hernandez History of total knee replacement Bilateral Hx of cataract surgery Status post transcatheter aortic valve replacement Family History Mother Diabetes mellitus, type 2 Stroke Hypertension Kidney disease Kidney stones Sister Diabetes mellitus, type 2 Gallbladder disease Brother Diabetes mellitus, type 2 Father Myocardial infarction Alcohol abuse Other Family history of diabetes mellitus Denies family history of Ovarian cancer Prostate cancer Breast cancer Lung cancer Colorectal cancer Social History Smoking Status: Never smoker Second Hand Exposure: No; Hx Alcohol Use: No Hx Substance Use: No Preferred Language: [place] Communication Ability: Effective Visual Impairment: Limited Hearing Ability: Normal Qi Specialist Required: No Beliefs That Will Affect Care: None marital status: Single Current Living Situation: Alone 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al status: employed and retired 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, 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 [employer] How many Children do You have: 0 Feels Safe at Home: Yes Childhood Exposure to Second-Hand Smoke: Yes (father) caffeine: Yes Dental Care, Regularly: No Physical Activity Frequency: Does not Exercise Seatbelt Use: always Sunscreen Use: Yes Assistive Devices: Glasses Review of Systems Review of Systems: Mild distress and fatigue no headache, no visual changes no speech or swallowing issues no chest pain, pressure or palpitations no shortness of breath, cough or wheezes no abdominal pain, nausea or vomiting, diarrhea or constipation no dysuria, hematuria or frequency no focal joint pain or swelling no back pain, CVA tenderness or radicular pain no bruising, bleeding or rashes no focal signs of weakness or numbness or altered sensation no complaints of anxiety or depression.. Physical Exam Physical Exam: The patient appeared well nourished and normally developed. Vital signs as documented. Head exam is normocephalic atraumatic Neck is without JVD, thyromegaly, or carotid bruits. Lungs are clear to auscultation, no focal loss of breath sounds Cardiac exam, Rhythm is regular.. No murmurs, rubs or gallops. Abdominal exam reveals normal bowel sounds, soft non tender, no masses Extremities are nonedematous and both pedal pulses are present Neurologic exam is alert and oriented, no focal loss of strength or sensation Skin is without bruises or rashes Psychologically is without concerns for anxiety or depression Results & Data Results & Data ([facility]) Vital Signs (Past 12 Hours) Vital Signs Temp Pulse Pulse Pulse Resp BP Pulse Ox 12/24/20 15:40 69 16 142/57 H 96 12/24/20 15:30 78 13 147/65 H 99 12/24/20 15:20 73 13 153/72 H 100 12/24/20 15:12 96.8 F L 90 16 160/74 H 99 12/24/20 12:20 98.4 F 55 L 16 186/76 H 98 12/24/20 12:12 58 L 14 173/70 H 12/24/20 11:07 73 17 168/77 H 96 12/24/20 09:19 59 L 18 194/90 H 95 12/24/20 09:17 59 L 18 95 12/24/20 08:52 97.9 F 59 L 18 96 PG Care Time/CCT Total # of Minutes Spent Total Time Spent with Patient: Total time spent is greater than 50% in coordination of care (as documented) at patient's floor/unit and/or counseling patient: Coding Level of Care Code 89088 Inpt Consult Level 3 Diagnoses Incarcerated incisional hernia K43.0 Hypertension I10 Hypertension type: essential hypertension History of heart valve replacement Z95.2 Hyperlipidemia E78.5 Diabetes mellitus type 2 in obese E11.69; E66.9 (1) Hypertension Hypertension type: essential hypertension Qualified Code(s): I10 - Essential (primary) hypertension
[2020-12-24] MEDS: HYDROmorphone INJ 2 MG/ML SYR/VIAL IV PRN ×2 (16:00→16:05)
[2020-12-24] MEDS: LACTATED RINGER'S 1,000 ML IV SCH (17:39)
[2020-12-24] MEDS: MoRPHine SULFATE 2 MG/ML CARP IV PRN ×2 (18:49→22:30)
[2020-12-24] MEDS ORDERED: PROMETHAZINE HCL 12.5 MG in SODIUM CHLORIDE 0.9% 50 ML IV PRN (20:44)
[2020-12-24] MEDS ORDERED: KETOROLAC TROMETHAMINE 15 MG/ML VIAL IV PRN (20:44)
[2020-12-24] MEDS ORDERED: MoRPHine SULFATE 2 MG/ML CARP IV PRN (20:44)
[2020-12-24] MEDS ORDERED: CARBOHYDRATES FOR HYPOGLYCEMIA PO PRN (20:44)
[2020-12-24] MEDS ORDERED: GLUCOSE 40% GEL 15 GM TUBE PO PRN (20:44)
[2020-12-24] MEDS ORDERED: GLUCOSE 10 TABS/TUBE PO PRN (20:44)
[2020-12-24] MEDS ORDERED: hydrALAZINE HCL 20 MG/ML VIAL IV PRN (20:44)
[2020-12-24] MEDS ORDERED: diphenhydrAMINE 50 MG/ML VIAL IV PRN (20:44)
[2020-12-24] MEDS ORDERED: GLUCAGON FOR INJ 1 MG VIAL SQ PRN (20:44)
[2020-12-24] MEDS ORDERED: DEXTROSE 50% 50 ML SYRINGE IV PRN (20:44)
[2020-12-24] MEDS: ACETAMINOPHEN 1,000 MG/100 ML VIAL IV PRN (21:30)
[2020-12-24] MEDS: ENOXAPARIN INJ 40 MG/0.4 ML SYR SQ SCH (22:09)
[2020-12-24] MEDS: INSULIN ASPART 100 UNITS/ML VIAL SC SCH (22:13)
[2020-12-25] MEDS: INSULIN ASPART 100 UNITS/ML VIAL SC SCH ×4 (01:18→18:21)
[2020-12-25] MEDS: LACTATED RINGER'S 1,000 ML IV SCH (03:46)
[2020-12-25] MEDS: MoRPHine SULFATE 2 MG/ML CARP IV PRN ×2 (05:49→09:35)
[2020-12-25 06:21] LABS: Hematocrit (blood only) 38.6 % (42-52); Hemoglobin 12.5 g/dL (14.0-18.0); Mean Corpuscular Hemoglobin 29.5 pg (25-34); Mean Corpuscular Hgb Conc 32.4 g/dL (32-36); Mean Platelet Volume 10.3 fL (7.4-10.4); Platelet Count 178 K/uL (130-400); RDW Coefficient of Variation 14.8 % (11.5-14.5); RDW Standard Deviation 49.5 fL (36.4-46.3); Red Blood Count 4.24 M/uL (4.7-6.1); White Blood Count 13.02 K/uL (4.8-10.8)
[2020-12-25 07:00] LABS: Basophils # (auto) 0.02 K/uL (0-0.2); Basophils % (auto) 0.2 %; Dohle Bodies 1+; Eosinophils # (auto) 0.02 K/uL (0-0.5); Eosinophils % (auto) 0.2 %; Immature Granulocytes # (auto) 0.02 K/uL (0.00-0.02); Immature Granulocytes % (auto) 0.2 %; Lymphocytes # (auto) 0.58 K/uL (1.2-3.4); Lymphocytes % (auto) 4.5 %; Monocytes # (auto) 1.15 K/uL (0.11-0.59); Monocytes % (auto) 8.8 %; Neutrophils # (auto) 11.23 K/uL (1.4-6.5); Neutrophils % (auto) 86.1 %
[2020-12-25 07:08] LABS: BUN Creatinine Ratio 17.6 (10-20); Calcium 9.1 mg/dl (8.5-10.1); Creatinine Clr Calc Pharmacy 55.4 ml/min; Est GFR (African American) 60.9 ml/min; Est GFR (Non-African American) 52.5 ml/min; Potassium 4.3 mmol/L (3.5-5.1)
[2020-12-25 07:13] LABS: Estimated Average Glucose 120 mg/dl; Hemoglobin A1C 5.8 % (4.5-5.6)
--- NOTE | 2020-12-25 08:41 | Hospitalist Progress Note ---
Date of Service December 25, 2020 Assessment & Plan (1) Incarcerated incisional hernia: Plan: POD1 s/p Exploratory Laparotomy, Incarcerated Incisional Hernia Repair, Small Bowel Resection(Not Applicable) - Jarrett Sarkar MD. EBL 15cc. Per OP report-- > Upper midline incisional hernia containing a loop of bowel. The bowel was ischemic. There is an additional hernia containing unobstructed transverse colon cephalad to this hernia. Small bowel resection reanastomosis. Hernia repaired with suture. Temp overnight, WBC elevated 13k -- bcx pending Started Zosyn IV Continue IVF They plan on d/c Savage today, continue abd binder, OOB to chair and encouraged ambulation SCD/Lovenox for DVT prophylaxis Ice chips/sips for today pain control, antiemetics prn Continue to monitor labs/electrolyte replacement. will give 1gm mag to keep closer to 2/help GI motility Continue to monitor (2) Diabetes mellitus type 2 in obese: Plan: Patient typically takes Metformin he will be n.p.o. postoperatively glucose seems well controlled with Insulin sliding scale Continue holding his Metformin. 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 No prior hx afib. Denies hx palpitations F/u outpatient as previously arranged as PCP referring to cardio Recent negative MRI/MRA for CVA (5) Hyperlipidemia: Plan: Hold crestor while NPO, resume when able (6) DVT prophylaxis: Plan: Lovenox SQ Plan: continued inpatient monitoring Admission and Anticipated Discharge Date Admission Date: December 24, 2020 Subjective Patient evaluated around lunch time in ASU-7. Awaiting transportation to room 361. Patient doing well. Surgery yesterday for incarcerated hernia. Abd tender around incision, however pain controlled with ordered medications. Feeling like he has to pass gas but not yet. No BM. Has ice chips at bedside. Discussed fever last night and discussed with surgery for abx possibility, which have been started. No further fevers since that time. Has aortic valve replacement and part of 10yr study. Was to have ECHO given visual loss 2x in past year. Prior had MRI and MRA which did not show stroke and was to have a 48hr holter monitor to eval for possible underlying afib but denied every having palpitations. No chest pain, shortness of breath, nausea, vomiting, dysuria at this time. Has not yet been out of bed. Questions/concerns addressed at this time. Review of Systems Review of Systems: All systems reviewed & are unremarkable except as noted in HPI & below Physical Exam Physical Exam: WD/WN, obese male sitting up in bed in ASU, no acute distress slightly dry mm, trachea midline without deviation Resp: CTAB, no w/c/r, no edema CV: RRR,, no LE edema, no JVD, pulses palpable GI: absent/hypoactive BS throughout, dressing c/d/i, TTP appropriately, no gaurding or rigidity GI: savage drianing yellow urine Neuro: no focal deficits Skin: warm, dry Psych : AOx 3, pleasant and cooperative Results & Data Results & Data ([facility]) Vital Signs (Past 12 Hours) Vital Signs Temp Pulse Resp BP 12/25/20 05:59 37.7 C H 91 H 16 130/63 12/24/20 23:17 37.7 C H 12/24/20 22:49 38.3 C H Laboratory Results 12/25/20 12/25/20 12/25/20 Range/Units 06:05 06:05 06:05 WBC 13.02 H (4.8-10.8) K/uL RBC 4.24 L (4.7-6.1) M/uL Hgb 12.5 L (14.0-18.0) g/dL Hct 38.6 L (42-52) % MCV 91.0 (80-100) fL MCH 29.5 (25-34) pg MCHC 32.4 (32-36) g/dL RDW Std Deviation 49.5 H (36.4-46.3) fL RDW Coeff of Cluadia 14.8 H (11.5-14.5) % Plt Count 178 (130-400) K/uL MPV 10.3 (7.4-10.4) fL Immature Gran % (Auto) 0.2 % Neut % (Auto) 86.1 % Lymph % (Auto) 4.5 % [place] % (Auto) 8.8 % Eos % (Auto) 0.2 % Baso % (Auto) 0.2 % Neut # (Auto) 11.23 H (1.4-6.5) K/uL Lymph # (Auto) 0.58 L (1.2-3.4) K/uL [place] # (Auto) 1.15 H (0.11-0.59) K/uL Eos # (Auto) 0.02 (0-0.5) K/uL Baso # (Auto) 0.02 (0-0.2) K/uL Immature Gran # (Auto) 0.02 (0.00-0.02) K/uL Dohle Bodies 1+ Sodium 137 (136-145) mmol/L Potassium 4.3 D (3.5-5.1) mmol/L Chloride 104 (98-107) mmol/L Carbon Dioxide 28 (21-32) mmol/L Anion Gap 5.0 (3-11) BUN 23 H (7-18) mg/dl Creatinine 1.31 D (0.6-1.4) mg/dl Est Cr Clr Drug Dosing 55.4 ml/min Est GFR ( Amer) 60.9 ml/min Est GFR (Non-Af Amer) 52.5 ml/min BUN/Creatinine Ratio 17.6 (10-20) Glucose 124 H (70-99) mg/dl POC Glucose (70-99) mg/dl Estimat Average Glucose 120 mg/dl Hemoglobin A1c 5.8 H (4.5-5.6) % Lactate (0.4-2.0) mmol/L Calcium 9.1 (8.5-10.1) mg/dl Total Bilirubin (0.2-1) mg/dl AST (15-37) U/L ALT (12-78) U/L Alkaline Phosphatase (45-117) U/L Total Protein (6.4-8.2) gm/dl Albumin (3.4-5.0) gm/dl Globulin (2.5-4.0) gm/dl Albumin/Globulin Ratio (0.9-2) Lipase (73-393) U/L COVID-19 Eval Order SARS-CoV-2 (PCR) (Negative) 12/25/20 12/25/20 12/24/20 Range/Units 06:01 01:17 20:34 WBC (4.8-10.8) K/uL RBC (4.7-6.1) M/uL Hgb (14.0-18.0) g/dL Hct (42-52) % MCV (80-100) fL MCH (25-34) pg MCHC (32-36) g/dL RDW Std Deviation (36.4-46.3) fL RDW Coeff of Claudia (11.5-14.5) % Plt Count (130-400) K/uL MPV (7.4-10.4) fL Immature Gran % (Auto) % Neut % (Auto) % Lymph % (Auto) % [place] % (Auto) % Eos % (Auto) % Baso % (Auto) % Neut # (Auto) (1.4-6.5) K/uL Lymph # (Auto) (1.2-3.4) K/uL [place] # (Auto) (0.11-0.59) K/uL Eos # (Auto) (0-0.5) K/uL Baso # (Auto) (0-0.2) K/uL Immature Gran # (Auto) (0.00-0.02) K/uL Dohle Bodies Sodium (136-145) mmol/L Potassium (3.5-5.1) mmol/L Chloride (98-107) mmol/L Carbon Dioxide (21-32) mmol/L Anion Gap (3-11) BUN (7-18) mg/dl Creatinine (0.6-1.4) mg/dl Est Cr Clr Drug Dosing ml/min Est GFR ( Amer) ml/min Est GFR (Non-Af Amer) ml/min BUN/Creatinine Ratio (10-20) Glucose (70-99) mg/dl POC Glucose 127 H 114 H 125 H (70-99) mg/dl Estimat Average Glucose mg/dl Hemoglobin A1c (4.5-5.6) % Lactate (0.4-2.0) mmol/L Calcium (8.5-10.1) mg/dl Total Bilirubin (0.2-1) mg/dl AST (15-37) U/L ALT (12-78) U/L Alkaline Phosphatase (45-117) U/L Total Protein (6.4-8.2) gm/dl Albumin (3.4-5.0) gm/dl Globulin (2.5-4.0) gm/dl Albumin/Globulin Ratio (0.9-2) Lipase (73-393) U/L COVID-19 Eval Order SARS-CoV-2 (PCR) (Negative) 12/24/20 12/24/20 12/24/20 Range/Units 15:17 10:13 10:00 WBC (4.8-10.8) K/uL RBC (4.7-6.1) M/uL Hgb (14.0-18.0) g/dL Hct (42-52) % MCV (80-100) fL MCH (25-34) pg MCHC (32-36) g/dL RDW Std Deviation (36.4-46.3) fL RDW Coeff of Claudia (11.5-14.5) % Plt Count (130-400) K/uL MPV (7.4-10.4) fL Immature Gran % (Auto) % Neut % (Auto) % Lymph % (Auto) % [place] % (Auto) % Eos % (Auto) % Baso % (Auto) % Neut # (Auto) (1.4-6.5) K/uL Lymph # (Auto) (1.2-3.4) K/uL [place] # (Auto) (0.11-0.59) K/uL Eos # (Auto) (0-0.5) K/uL Baso # (Auto) (0-0.2) K/uL Immature Gran # (Auto) (0.00-0.02) K/uL Dohle Bodies Sodium (136-145) mmol/L Potassium (3.5-5.1) mmol/L Chloride (98-107) mmol/L Carbon Dioxide (21-32) mmol/L Anion Gap (3-11) BUN (7-18) mg/dl Creatinine (0.6-1.4) mg/dl Est Cr Clr Drug Dosing ml/min Est GFR ( Amer) ml/min Est GFR (Non-Af Amer) ml/min BUN/Creatinine Ratio (10-20) Glucose (70-99) mg/dl POC Glucose 135 H (70-99) mg/dl Estimat Average Glucose mg/dl Hemoglobin A1c (4.5-5.6) % Lactate 1.7 (0.4-2.0) mmol/L Calcium (8.5-10.1) mg/dl Total Bilirubin (0.2-1) mg/dl AST (15-37) U/L ALT (12-78) U/L Alkaline Phosphatase (45-117) U/L Total Protein (6.4-8.2) gm/dl Albumin (3.4-5.0) gm/dl Globulin (2.5-4.0) gm/dl Albumin/Globulin Ratio (0.9-2) Lipase (73-393) U/L COVID-19 Eval Order SARS-CoV-2 (PCR) NEGATIVE (Negative) 12/24/20 12/24/20 12/24/20 Range/Units 10:00 09:10 09:10 WBC 8.24 (4.8-10.8) K/uL RBC 4.70 (4.7-6.1) M/uL Hgb 14.2 (14.0-18.0) g/dL Hct 41.5 L (42-52) % MCV 88.3 (80-100) fL MCH 30.2 (25-34) pg MCHC 34.2 (32-36) g/dL RDW Std Deviation 45.1 (36.4-46.3) fL RDW Coeff of Claudia 13.8 (11.5-14.5) % Plt Count 205 (130-400) K/uL MPV 10.7 H (7.4-10.4) fL Immature Gran % (Auto) 0.2 % Neut % (Auto) 85.1 % Lymph % (Auto) 7.2 % [place] % (Auto) 7.2 % Eos % (Auto) 0.2 % Baso % (Auto) 0.1 % Neut # (Auto) 7.01 H (1.4-6.5) K/uL Lymph # (Auto) 0.59 L (1.2-3.4) K/uL [place] # (Auto) 0.59 (0.11-0.59) K/uL Eos # (Auto) 0.02 (0-0.5) K/uL Baso # (Auto) 0.01 (0-0.2) K/uL Immature Gran # (Auto) 0.02 (0.00-0.02) K/uL Dohle Bodies Sodium 136 (136-145) mmol/L Potassium 3.7 (3.5-5.1) mmol/L Chloride 101 (98-107) mmol/L Carbon Dioxide 27 (21-32) mmol/L Anion Gap 8.0 (3-11) BUN 17 (7-18) mg/dl Creatinine 0.90 (0.6-1.4) mg/dl Est Cr Clr Drug Dosing 80.7 ml/min Est GFR ( Amer) 95.8 ml/min Est GFR (Non-Af Amer) 82.7 ml/min BUN/Creatinine Ratio 19.0 (10-20) Glucose 149 H (70-99) mg/dl POC Glucose (70-99) mg/dl Estimat Average Glucose mg/dl Hemoglobin A1c (4.5-5.6) % Lactate (0.4-2.0) mmol/L Calcium 10.1 (8.5-10.1) mg/dl Total Bilirubin 0.7 (0.2-1) mg/dl AST 20 (15-37) U/L ALT 33 (12-78) U/L Alkaline Phosphatase 99 (45-117) U/L Total Protein 8.1 (6.4-8.2) gm/dl Albumin 4.0 (3.4-5.0) gm/dl Globulin 4.1 H (2.5-4.0) gm/dl Albumin/Globulin Ratio 1.0 (0.9-2) Lipase 91 (73-393) U/L COVID-19 Eval Order Covid19 at [facility] SARS-CoV-2 (PCR) (Negative) Diagnostic Findings Abdomen/Pelvis CT 12/24/20 09:[address] WITHOUT CONTRAST CT DOSE: 1412.28 mGy.cm HISTORY: Nausea. mid abd hernia on exam TECHNIQUE: Multiaxial CT images of the abdomen and pelvis were performed without contrast. A dose lowering technique was utilized adhering to the principles of ALARA. COMPARISON STUDY: None. FINDINGS: The lung bases are clear. No pneumoperitoneum. No pneumatosis. Posterior decompression and fusion from L2 through S1 with pedicle screws and rods. No fractures identified. There is a partially visualized aortic valve stent. The unenhanced liver, gallbladder, spleen, adrenal glands, and pancreas are unremarkable. No renal or ureteral stones. No hydronephrosis. The bladder is not well-distended but appears unremarkable. There are few bilateral renal hypodense lesions within the largest in the right kidney measuring 3.6 cm. These are incompletely characterized on this noncontrast study but statistically represent cysts. Normal caliber abdominal aorta. No retroperitoneal lymphadenopathy. There is a small midline epigastric hernia containing a knuckle of the mid transverse colon. There is an additional midline upper abdominal ventral hernia which contains a short segment of jejunum best seen on image 198. The hernia neck measures approximately 9 mm. The hernia sac measures 4 cm. There is mild fat stranding within and surrounding the hernia sac. The hernia sac contains a mildly dilated loop of jejunum. Distal to the hernia sac the small bowel is decompressed. Proximal to the hernia sac in the small bowel is distended and fluid-filled. Therefore, this is consistent with the transition point for a small bowel obstruction. The hernia is likely incarcerated. Normal appendix. Trace fluid along the right paracolic gutter. A few colonic diverticula. No evidence for acute diverticulitis. IMPRESSION: 1. Small bowel obstruction as described above secondary to an incarcerated midline ventral hernia containing a short segment of small bowel. This corresponds to the transition point of the small bowel obstruction. 2. There is an additional midline epigastric hernia containing a knuckle of the transverse colon. However, this does not result in an obstruction at this time. 3. Additional findings as described above. ACT 112: Negative or not required by law. Electronically signed by: Kunal Myrick M.D. 12/24/2020 10:17 AM Chest X-Ray 12/24/20 09:17 XR chest 1V portable HISTORY: Generalized abdominal pain. Small bowel obstruction. COMPARISON: Chest 03/02/2018. FINDINGS: The heart remains mildly enlarged. No pneumothorax. No pleural effusions. The lungs are clear. Evidence for previous cardiac valve surgery. IMPRESSION: No significant change compared to the prior study. No acute process. ACT 112: Negative or not required by law. Electronically signed by: Kunal Myrick M.D. 12/24/2020 10:19 AM PG Care Time/CCT Total # of Minutes Spent Total Time Spent with Patient: Total time spent is greater than 50% in coordination of care (as documented) at patient's floor/unit and/or counseling patient: Coding Level of Care Code None Diagnoses Incarcerated incisional hernia K43.0 Diabetes mellitus type 2 in obese E11.69; E66.9 Hypertension I10 Hypertension type: essential hypertension History of heart valve replacement Z95.2 Hyperlipidemia E78.5 DVT prophylaxis Z29.9 (1) Hypertension Hypertension type: essential hypertension Qualified Code(s): I10 - Essential (primary) hypertension
--- NOTE | 2020-12-25 09:31 | Electrocardiogram Report ---
Test Reason : Blood Pressure : / mmHG Vent. Rate : 064 BPM Atrial Rate : 064 BPM P-R Int : 224 ms QRS Dur : 132 ms QT Int : 454 ms P-R-T Axes : 097 -64 025 degrees QTc Int : 468 ms Sinus rhythm with 1st degree A-V block Right bundle branch block Left anterior fascicular block Left ventricular hypertrophy with QRS widening Abnormal ECG When compared with ECG of 27-JUL-2017 12:11, [place] interval has increased Confirmed by Viktor Donis ([id number]) on 12/25/2020 9:31:36 AM Referred By: REFERRED SELF Confirmed By:Viktor Donis
[2020-12-25] MEDS: ACETAMINOPHEN 1,000 MG/100 ML VIAL IV PRN (09:33)
[2020-12-25] MEDS: ACETAMINOPHEN 1,000 MG/100 ML VIAL IV SCH ×2 (10:00→17:56)
[2020-12-25] MEDS ORDERED: PIPERACILL/TAZOBAC CONSULT ACTIVE PRN (10:19)
--- NOTE | 2020-12-25 10:37 | Surgery Progress Note ---
Date of Service December 25, 2020 Assessment & Plan (1) Incarcerated incisional hernia: (2) History of heart valve replacement: (3) Diabetes mellitus type 2 in obese: (4) Sleep apnea: (5) CAD (coronary artery disease): Plan: POD # 1 s/p ex lap, small bowel resection for incarcerated ventral hernia - febrile, t max 38.3 - leukocytosis of 13k (likely postop) - abdomen soft, tender at incision - adequate urine output Plan: Will change Tylenol to scheduled and Toradol scheduled every 6 hours for 6 total doses. continue IV morphine prn pain May have ice chips and sips discontinue savage start IV Zosyn SCDs and lovenox for DVT prophylaxis abdominal binder OOB to chair and ambulate Medicine on board Dr. Sarkar has seen and examined pt, agrees with above. Admission and Anticipated Discharge Date Admission Date: December 24, 2020 Subjective feeling okay, pain controlled but moderate at incision site no nausea or vomiting no chest pain or shortness of breath no chills or sweats has not been out of bed yet Physical Exam Constitutional: WD/WN, vitals as above no acute distress and not ill appearing Respiratory: normal respiratory effort; no respiratory distress, no labored breathing and no retractions Gastrointestinal (Abdomen): Inspection/Auscultation: abdomen normal to inspection, + abdominal surgical incision (covered with dry and clean dressing) and + hypoactive bowel sounds; abdomen not distended and + abnormal bowel sounds Percussion/Palpation: + abdomen tender (at midline incision) and abdomen soft; no guarding and abdomen not rigid Skin: no rashes, warm and dry Psychiatric: A+Ox3, euthymic affect Results & Data ([facility]) Vital Signs (Past 12 Hours) Vital Signs Temp Pulse Resp BP 12/25/20 05:59 37.7 C H 91 H 16 130/63 12/24/20 23:17 37.7 C H 12/24/20 22:49 38.3 C H Laboratory Results 12/25/20 12/25/20 12/25/20 Range/Units 09:20 06:05 06:05 WBC (4.8-10.8) K/uL RBC (4.7-6.1) M/uL Hgb (14.0-18.0) g/dL Hct (42-52) % MCV (80-100) fL MCH (25-34) pg MCHC (32-36) g/dL RDW Std Deviation (36.4-46.3) fL RDW Coeff of Claudia (11.5-14.5) % Plt Count (130-400) K/uL MPV (7.4-10.4) fL Immature Gran % (Auto) % Neut % (Auto) % Lymph % (Auto) % [place] % (Auto) % Eos % (Auto) % Baso % (Auto) % Neut # (Auto) (1.4-6.5) K/uL Lymph # (Auto) (1.2-3.4) K/uL [place] # (Auto) (0.11-0.59) K/uL Eos # (Auto) (0-0.5) K/uL Baso # (Auto) (0-0.2) K/uL Immature Gran # (Auto) (0.00-0.02) K/uL Dohle Bodies Sodium 137 (136-145) mmol/L Potassium 4.3 D (3.5-5.1) mmol/L Chloride 104 (98-107) mmol/L Carbon Dioxide 28 (21-32) mmol/L Anion Gap 5.0 (3-11) BUN 23 H (7-18) mg/dl Creatinine 1.31 D (0.6-1.4) mg/dl Est Cr Clr Drug Dosing 55.4 ml/min Est GFR ( Amer) 60.9 ml/min Est GFR (Non-Af Amer) 52.5 ml/min BUN/Creatinine Ratio 17.6 (10-20) Glucose 124 H (70-99) mg/dl POC Glucose (70-99) mg/dl Estimat Average Glucose 120 mg/dl Hemoglobin A1c 5.8 H (4.5-5.6) % Lactate 1.8 (0.4-2.0) mmol/L Calcium 9.1 (8.5-10.1) mg/dl SARS-CoV-2 (PCR) (Negative) 12/25/20 12/25/20 12/25/20 Range/Units 06:05 06:01 01:17 WBC 13.02 H (4.8-10.8) K/uL RBC 4.24 L (4.7-6.1) M/uL Hgb 12.5 L (14.0-18.0) g/dL Hct 38.6 L (42-52) % MCV 91.0 (80-100) fL MCH 29.5 (25-34) pg MCHC 32.4 (32-36) g/dL RDW Std Deviation 49.5 H (36.4-46.3) fL RDW Coeff of Claudia 14.8 H (11.5-14.5) % Plt Count 178 (130-400) K/uL MPV 10.3 (7.4-10.4) fL Immature Gran % (Auto) 0.2 % Neut % (Auto) 86.1 % Lymph % (Auto) 4.5 % [place] % (Auto) 8.8 % Eos % (Auto) 0.2 % Baso % (Auto) 0.2 % Neut # (Auto) 11.23 H (1.4-6.5) K/uL Lymph # (Auto) 0.58 L (1.2-3.4) K/uL [place] # (Auto) 1.15 H (0.11-0.59) K/uL Eos # (Auto) 0.02 (0-0.5) K/uL Baso # (Auto) 0.02 (0-0.2) K/uL Immature Gran # (Auto) 0.02 (0.00-0.02) K/uL Dohle Bodies 1+ Sodium (136-145) mmol/L Potassium (3.5-5.1) mmol/L Chloride (98-107) mmol/L Carbon Dioxide (21-32) mmol/L Anion Gap (3-11) BUN (7-18) mg/dl Creatinine (0.6-1.4) mg/dl Est Cr Clr Drug Dosing ml/min Est GFR ( Amer) ml/min Est GFR (Non-Af Amer) ml/min BUN/Creatinine Ratio (10-20) Glucose (70-99) mg/dl POC Glucose 127 H 114 H (70-99) mg/dl Estimat Average Glucose mg/dl Hemoglobin A1c (4.5-5.6) % Lactate (0.4-2.0) mmol/L Calcium (8.5-10.1) mg/dl SARS-CoV-2 (PCR) (Negative) 12/24/20 12/24/20 12/24/20 Range/Units 20:34 15:17 10:13 WBC (4.8-10.8) K/uL RBC (4.7-6.1) M/uL Hgb (14.0-18.0) g/dL Hct (42-52) % MCV (80-100) fL MCH (25-34) pg MCHC (32-36) g/dL RDW Std Deviation (36.4-46.3) fL RDW Coeff of Claudia (11.5-14.5) % Plt Count (130-400) K/uL MPV (7.4-10.4) fL Immature Gran % (Auto) % Neut % (Auto) % Lymph % (Auto) % [place] % (Auto) % Eos % (Auto) % Baso % (Auto) % Neut # (Auto) (1.4-6.5) K/uL Lymph # (Auto) (1.2-3.4) K/uL [place] # (Auto) (0.11-0.59) K/uL Eos # (Auto) (0-0.5) K/uL Baso # (Auto) (0-0.2) K/uL Immature Gran # (Auto) (0.00-0.02) K/uL Dohle Bodies Sodium (136-145) mmol/L Potassium (3.5-5.1) mmol/L Chloride (98-107) mmol/L Carbon Dioxide (21-32) mmol/L Anion Gap (3-11) BUN (7-18) mg/dl Creatinine (0.6-1.4) mg/dl Est Cr Clr Drug Dosing ml/min Est GFR ( Amer) ml/min Est GFR (Non-Af Amer) ml/min BUN/Creatinine Ratio (10-20) Glucose (70-99) mg/dl POC Glucose 125 H 135 H (70-99) mg/dl Estimat Average Glucose mg/dl Hemoglobin A1c (4.5-5.6) % Lactate 1.7 (0.4-2.0) mmol/L Calcium (8.5-10.1) mg/dl SARS-CoV-2 (PCR) (Negative) 12/24/20 Range/Units 10:00 WBC (4.8-10.8) K/uL RBC (4.7-6.1) M/uL Hgb (14.0-18.0) g/dL Hct (42-52) % MCV (80-100) fL MCH (25-34) pg MCHC (32-36) g/dL RDW Std Deviation (36.4-46.3) fL RDW Coeff of Claudia (11.5-14.5) % Plt Count (130-400) K/uL MPV (7.4-10.4) fL Immature Gran % (Auto) % Neut % (Auto) % Lymph % (Auto) % [place] % (Auto) % Eos % (Auto) % Baso % (Auto) % Neut # (Auto) (1.4-6.5) K/uL Lymph # (Auto) (1.2-3.4) K/uL [place] # (Auto) (0.11-0.59) K/uL Eos # (Auto) (0-0.5) K/uL Baso # (Auto) (0-0.2) K/uL Immature Gran # (Auto) (0.00-0.02) K/uL Dohle Bodies Sodium (136-145) mmol/L Potassium (3.5-5.1) mmol/L Chloride (98-107) mmol/L Carbon Dioxide (21-32) mmol/L Anion Gap (3-11) BUN (7-18) mg/dl Creatinine (0.6-1.4) mg/dl Est Cr Clr Drug Dosing ml/min Est GFR ( Amer) ml/min Est GFR (Non-Af Amer) ml/min BUN/Creatinine Ratio (10-20) Glucose (70-99) mg/dl POC Glucose (70-99) mg/dl Estimat Average Glucose mg/dl Hemoglobin A1c (4.5-5.6) % Lactate (0.4-2.0) mmol/L Calcium (8.5-10.1) mg/dl SARS-CoV-2 (PCR) NEGATIVE (Negative) (1) CAD (coronary artery disease) Coronary Disease-Associated Artery/Lesion type: [place] artery [place] vs. transplanted heart: [place] heart Associated angina: without angina Qualified Code(s): I25.10 - Atherosclerotic heart disease of [place] coronary artery without angina pectoris
--- NOTE | 2020-12-25 10:53 | Hospitalist Progress Note ---
Date of Service December 25, 2020 Assessment & Plan (1) Incarcerated incisional hernia: Plan: 12/24/20 pt underwent laparoscopic correction of incarcerated incisional hernia this included bowel resection and anastomosis. Surgery is managing advancement of diet lung chips and sips on 12/25 (2) Diabetes mellitus type 2 in obese: Plan: Patient typically takes Metformin he will be n.p.o. postoperatively glucose seems well controlled with Insulin sliding scale Continue holding his Metformin. At this time not NEEDING a basal rate, but anticipate may need once patient begins taking oral intake (3) Hypertension: Plan: Patient typically takes losartan/hydrochlorothiazide this is held hydralazine to be used as needed until the patient takes p.o. intake again (4) History of heart valve replacement: Plan: Patient reported a TAVR in 2017 he has been stable not requiring any additional cardiac medications. He was in the process of being referred to cardiology by his primary care provider due to some transient vision loss which has been on 2 occasions. He has had a negative work-up for cerebrovascular disease but is post have an echo for PFO. 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 (6) DVT prophylaxis: Plan: Surgery start enoxaparin for DVT prevention Admission and Anticipated Discharge Date Admission Date: December 24, 2020 Subjective Patient was seen in ambulatory surgical unit due to bed hold issues. Patient had his NG tube removed last night without any vomiting. He still has had no flatus. He does have occasional bowel sounds in his abdomen. Had a low-grade temperature this morning and was given Tylenol. He did have blood cultures and lactic acid checked at that point time. Lactic acid was normal. He otherwise looks to be clinically stable he is remaining with low-grade temperatures, did complete perioperative cefoxitin. Review of Systems Review of Systems: Mild distress and fatigue no headache, no visual changes no speech or swallowing issues no chest pain, pressure or palpitations no shortness of breath, cough or wheezes Mild as expected postoperative abdominal pain worse with examination no rebound or guarding no dysuria, hematuria or frequency no focal joint pain or swelling no back pain, CVA tenderness or radicular pain no bruising, bleeding or rashes no focal signs of weakness or numbness or altered sensation no complaints of anxiety or depression.. Physical Exam Physical Exam: The patient appeared well nourished and normally developed. Vital signs as documented. Head exam is normocephalic atraumatic Neck is without JVD, thyromegaly, or carotid bruits. Lungs are clear to auscultation, no focal loss of breath sounds Cardiac exam, Rhythm is regular.. No murmurs, rubs or gallops. Abdominal exam reveals hypoactive bowel sounds soft wound is clean dry intact dressing is dry Extremities are nonedematous and both pedal pulses are present Neurologic exam is alert and oriented, no focal loss of strength or sensation Skin is without bruises or rashes Psychologically is without concerns for anxiety or depression Results & Data Results & Data ([facility]) Vital Signs (Past 12 Hours) Vital Signs Temp Pulse Resp BP 12/25/20 05:59 99.9 F H 91 H 16 130/63 12/24/20 23:17 99.9 F H PG Care Time/CCT Total # of Minutes Spent Total Time Spent with Patient: Total time spent is greater than 50% in coordination of care (as documented) at patient's floor/unit and/or counseling patient: Coding Level of Care Code 08483 Subseq Hosp Care Lvl 2 Diagnoses Incarcerated incisional hernia K43.0 Diabetes mellitus type 2 in obese E11.69; E66.9 Hypertension I10 Hypertension type: essential hypertension History of heart valve replacement Z95.2 Hyperlipidemia E78.5 DVT prophylaxis Z29.9 (1) Hypertension Hypertension type: essential hypertension Qualified Code(s): I10 - Essential (primary) hypertension
[2020-12-25] MEDS ORDERED: KETOROLAC 30 MG/ML VIAL ONE (11:59)
[2020-12-25] MEDS ORDERED: PIPERACILLIN/TAZOBACTAM 4.5 GM in DEXTROSE 5% 100 ML IV ONE (12:00)
[2020-12-25 13:37] LABS: Magnesium 1.9 mg/dl (1.8-2.4)
[2020-12-25] MEDS: KETOROLAC TROMETHAMINE 15 MG/ML VIAL IV SCH ×3 (13:57→22:09)
[2020-12-25] MEDS: SODIUM CHLORIDE 0.9% 1000ML 1,000 ML IV SCH (16:39)
[2020-12-25] MEDS ORDERED: MAGNESIUM SULFATE / D5W 1 GM/100 ML BAG IV ONE (17:00)
[2020-12-25] MEDS: PIPERACILLIN/TAZOBACTAM 3.375 GM in DEXTROSE 5% 100 ML IV SCH (19:01)
[2020-12-25] MEDS: ENOXAPARIN INJ 40 MG/0.4 ML SYR SQ SCH (22:08)
[2020-12-26] MEDS: SODIUM CHLORIDE 0.9% 1000ML 1,000 ML IV SCH ×3 (00:09→17:39)
[2020-12-26] MEDS: INSULIN ASPART 100 UNITS/ML VIAL SC SCH ×6 (00:11→21:30)
[2020-12-26] MEDS: ACETAMINOPHEN 1,000 MG/100 ML VIAL IV SCH ×3 (01:55→17:39)
[2020-12-26] MEDS: PIPERACILLIN/TAZOBACTAM 3.375 GM in DEXTROSE 5% 100 ML IV SCH ×3 (01:59→18:14)
[2020-12-26] MEDS: KETOROLAC TROMETHAMINE 15 MG/ML VIAL IV SCH ×3 (05:00→16:57)
--- NOTE | 2020-12-26 07:14 | Surgery Progress Note ---
Date of Service December 26, 2020 Assessment & Plan (1) Incarcerated incisional hernia: (2) History of heart valve replacement: (3) Diabetes mellitus type 2 in obese: (4) Sleep apnea: (5) CAD (coronary artery disease): Plan: POD # 2 s/p ex lap, small bowel resection for incarcerated ventral hernia - afebrile overnight - labs pending - abdomen soft, tender at incision - required straight cath last night Plan: continue pain control advance to clear liquid diet continue IV antibiotics SCDs and lovenox for DVT prophylaxis abdominal binder OOB to chair and ambulate Medicine on board Admission and Anticipated Discharge Date Admission Date: December 24, 2020 Subjective Postoperative day 2 status post exploratory laparotomy, small bowel resection, incarcerated hernia repair. He is doing well. He required catheterization overnight. His pain is under control. He denies nausea or vomiting. He is tolerating sips of clears. He denies any further fevers. Physical Exam Constitutional: WD/WN, vitals as above Eyes: PERRL, conjunctivae normal, anicteric sclerae Gastrointestinal (Abdomen): Inspection/Auscultation: abdomen normal to inspection and + abdominal surgical incision (Clean, dry, intact, oni present; no discharge); abdomen not distended Percussion/Palpation: + abdomen tender (Incisional tenderness) and abdomen soft; no guarding and abdomen not rigid Musculoskeletal: Extremities: no cyanosis and no clubbing Skin: no rashes, warm and dry Psychiatric: A+Ox3, euthymic affect Results & Data ([facility]) Vital Signs (Past 12 Hours) Vital Signs Temp Pulse Resp BP Pulse Ox Pulse Ox 12/26/20 06:58 37.1 C 92 H 16 142/72 H 94 12/25/20 23:42 37.3 C 77 16 102/64 92 12/25/20 19:50 92 (1) CAD (coronary artery disease) Coronary Disease-Associated Artery/Lesion type: [place] artery [place] vs. transplanted heart: [place] heart Associated angina: without angina Qualified Code(s): I25.10 - Atherosclerotic heart disease of [place] coronary artery without angina pectoris
[2020-12-26 09:22] LABS: Basophils # (auto) 0.02 K/uL (0-0.2); Basophils % (auto) 0.2 %; Eosinophils # (auto) 0.11 K/uL (0-0.5); Hematocrit (blood only) 35.8 % (42-52); Hemoglobin 11.7 g/dL (14.0-18.0); Immature Granulocytes # (auto) 0.04 K/uL (0.00-0.02); Immature Granulocytes % (auto) 0.3 %; Lymphocytes # (auto) 0.62 K/uL (1.2-3.4); Lymphocytes % (auto) 5.4 %; Mean Corpuscular Hemoglobin 29.7 pg (25-34); Mean Corpuscular Hgb Conc 32.7 g/dL (32-36); Mean Corpuscular Volume 90.9 fL (80-100); Mean Platelet Volume 10.5 fL (7.4-10.4); Monocytes # (auto) 0.65 K/uL (0.11-0.59); Monocytes % (auto) 5.6 %; Neutrophils # (auto) 10.13 K/uL (1.4-6.5); Neutrophils % (auto) 87.5 %; Platelet Count 179 K/uL (130-400); RDW Coefficient of Variation 14.6 % (11.5-14.5); RDW Standard Deviation 48.8 fL (36.4-46.3); Red Blood Count 3.94 M/uL (4.7-6.1); White Blood Count 11.57 K/uL (4.8-10.8)
[2020-12-26 09:57] LABS: BUN Creatinine Ratio 24.5 (10-20); Calcium 8.9 mg/dl (8.5-10.1); Creatinine Clr Calc Pharmacy 65.4 ml/min; Est GFR (African American) 74.4 ml/min; Est GFR (Non-African American) 64.2 ml/min; Potassium 3.8 mmol/L (3.5-5.1)
[2020-12-26] MEDS ORDERED: oxyCODONE/ACETAMINOPHEN 5mg/325mg TAB PO PRN ×2 (11:53)
[2020-12-26] MEDS ORDERED: Nursing to Pharmacy Communication SCH (12:30)
[2020-12-26] MEDS: ENOXAPARIN INJ 40 MG/0.4 ML SYR SQ SCH (21:30)
[2020-12-26] MEDS ORDERED: CALCIUM CARBONATE 500 MG CHEWABLE TAB PO PRN (22:19)
[2020-12-27] MEDS: SODIUM CHLORIDE 0.9% 1000ML 1,000 ML IV SCH (01:56)
[2020-12-27] MEDS: PIPERACILLIN/TAZOBACTAM 3.375 GM in DEXTROSE 5% 100 ML IV SCH ×3 (01:56→18:18)
[2020-12-27] MEDS: ACETAMINOPHEN 1,000 MG/100 ML VIAL IV SCH ×3 (01:56→18:18)
--- NOTE | 2020-12-27 05:13 | Surgery Progress Note ---
Date of Service December 27, 2020 Assessment & Plan (1) Incarcerated hernia: Plan: Patient is status post exploratory laparotomy with small bowel resection on 12/24/2020 (postop day #3) Continue analgesics Continue antiemetics Continue abdominal binder Increase activity as able Encourage use of incentive spirometry As phas had a bowel movement will consider advancing to full liquid diet later today We will discontinue IV fluids once oral intake is adequate Patient is receiving Lovenox for DVT prevention Admission and Anticipated Discharge Date Admission Date: December 24, 2020 Supervising Physician Co-Signing Physician Notes Dr. Andersen-patient is sitting in his chair in his room-he is awake and alert He said he did move his bowels yesterday-seems to be tolerating clear liquids He is ambulating in his room We will advance him to full liquids for lunch, encourage ambulation in the hallway Subjective ToleratePatient is seen sitting in a bedside chair. He notes his pain is well controlled. He denies any shortness of breath. He denies fevers, shakes, chills. Clear liquids without worsening abdominal pain. He denies any nausea or vomiting. He notes that he has had a bowel movement in the past 24 hours. Physical Exam Gastrointestinal (Abdomen): Incision is clean, dry, intact with oni. Abdomen is appropriately tender near surgical incision. Bowel sounds are present. Results & Data ([facility]) Vital Signs (Past 12 Hours) Vital Signs Temp Pulse Resp BP Pulse Ox Pulse Ox 12/26/20 22:00 36.8 C 71 16 143/75 H 95 12/26/20 21:30 95 PG Care Time/CCT Total # of Minutes Spent Total Time Spent with Patient: Total time spent is greater than 50% in coordination of care (as documented) at patient's floor/unit and/or counseling patient: Coding Level of Care Code None Diagnoses Incarcerated hernia K46.0
[2020-12-27 06:16] LABS: Basophils # (auto) 0.01 K/uL (0-0.2); Basophils % (auto) 0.1 %; Eosinophils # (auto) 0.21 K/uL (0-0.5); Eosinophils % (auto) 2.7 %; Hematocrit (blood only) 30.5 % (42-52); Hemoglobin 10.3 g/dL (14.0-18.0); Immature Granulocytes # (auto) 0.02 K/uL (0.00-0.02); Immature Granulocytes % (auto) 0.3 %; Lymphocytes # (auto) 0.72 K/uL (1.2-3.4); Lymphocytes % (auto) 9.3 %; Mean Corpuscular Hemoglobin 29.9 pg (25-34); Mean Corpuscular Hgb Conc 33.8 g/dL (32-36); Mean Corpuscular Volume 88.4 fL (80-100); Mean Platelet Volume 10.2 fL (7.4-10.4); Monocytes # (auto) 0.66 K/uL (0.11-0.59); Monocytes % (auto) 8.5 %; Neutrophils % (auto) 79.1 %; Platelet Count 185 K/uL (130-400); RDW Coefficient of Variation 14.2 % (11.5-14.5); RDW Standard Deviation 46.8 fL (36.4-46.3); Red Blood Count 3.45 M/uL (4.7-6.1); White Blood Count 7.72 K/uL (4.8-10.8)
[2020-12-27 06:56] LABS: BUN Creatinine Ratio 21.5 (10-20); Calcium 8.7 mg/dl (8.5-10.1); Creatinine Clr Calc Pharmacy 78.9 ml/min; Est GFR (African American) 93.3 ml/min; Est GFR (Non-African American) 80.5 ml/min
[2020-12-27] MEDS ORDERED: POTASSIUM CHLORIDE CRTAB 20 MEQ TABCR PO STA (08:19)
--- NOTE | 2020-12-27 08:23 | Hospitalist Progress Note ---
Date of Service December 27, 2020 Assessment & Plan (1) Incarcerated incisional hernia: Plan: POD3 s/p Exploratory Laparotomy, Incarcerated Incisional Hernia Repair, Small Bowel Resection(Not Applicable) - Jarrett Sarkar MD. EBL 15cc. Per OP report-- > Upper midline incisional hernia containing a loop of bowel. The bowel was ischemic. There is an additional hernia containing unobstructed transverse colon cephalad to this hernia. Small bowel resection reanastomosis. Hernia repaired with suture. Zosyn for abx (had fever, elevated WBC post-operatively), on day 3 of therapy WBC now wnl, no further fevers. BCx ngtd Continue IVF for now, NSS @ 125cc/hr, add K for now Hgb stable 10.3 -- acute blood loss anemia from surgery as well as dilutional as has remained on IVF Had BM last evening, tolerating clears --> per primary june d/c IVF this af ternoon if advanced to full liquid and keeps up with oral intake --> D/c IVF to prevent overload. Will resume valsartan/hctz continue abdominal binder Pain management, antiemetics prn Lovenox SQ for DVT Prophylaxis K 3.4 -- ordered PO replacement and placed in IVF Will check magnesium level as well -- replacement if needed -- wnl 2.2 will order something for sleep -- trazodone 50mg Continue to monitor (2) Diabetes mellitus type 2 in obese: Plan: Patient typically takes Metformin he will be n.p.o. postoperatively glucose seems well controlled with Insulin sliding scale Continue holding his Metformin for now At this time not NEEDING a basal rate, but anticipate may need once patient begins taking oral intake BSGs remain acceptable Continue to monitor as diet advanced (3) Hypertension: Plan: On Valsartan/HCTZ MANAGER PRICING -- held while NPO and hydralazine IV on board if needed BP elevated 170/71 but can be from some pain (denied much in way of pain) --> resumed for today as above Continue to monitor Hydralazine available prn (4) History of heart valve replacement: Plan: Patient reported a TAVR in 2017 he has been stable not requiring any additional cardiac medications. 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 No prior hx afib. Denies hx palpitations F/u outpatient as previously arranged as PCP referring to cardio Recent negative MRI/MRA for CVA Resumed ASA 81mg daily as ok w surgery (5) Hyperlipidemia: Plan: Hold crestor while NPO, resume when able -- likely tomorrow (6) DVT prophylaxis: Plan: Lovenox SQ Plan: continue IV abx, supportive care advancing diet today per surgery, has been moving bowels x 3, no n/v and keeping up with orals continued inpatient monitoring Admission and Anticipated Discharge Date Admission Date: December 24, 2020 Subjective patient eval this morning DOing well no abd pain tolerating diet but clears very salty. Had liquid BMs last night and formed this morning per his account. has been sleeping up in chair as sleeps on side and not sure if able with abd binder on. did not get great sleep -- will order something for tonight BP highest it has been in a long time per patient -- no headache/blurry vision but will resume diuretics. Alerted by RN for wetness to lungs -- does not appears too overloaded and would hold off on IV lasix for now and instead resume his BP medications which include diuretics valsartan/hctz. No f/c, cp, sob, nausea or vomiting at this time. Voiding without issue. Review of Systems Review of Systems: All systems reviewed & are unremarkable except as noted in HPI & below Physical Exam Physical Exam: WD/WN, obese male sitting up in chair, no acute distress mmm, trachea midline without deviation Resp CTAB, no w, faint bibasilar crackles (improved with cough), stable on room air CV: RRR, no edema or JVD, calves non-tender, pulses palpable GI: +BS, appropriately tender, with abdominal binder intact. looks good, no guarding or rigidity : no savage Neuro: no focal deficit Psych: AOx3, euthymic Results & Data Results & Data ([facility]) Vital Signs (Past 12 Hours) Vital Signs Temp Pulse Resp BP Pulse Ox Pulse Ox 12/27/20 07:50 37.0 C 70 18 170/71 H 12/26/20 22:00 36.8 C 71 16 143/75 H 95 12/26/20 21:30 95 Laboratory Results 12/27/20 12/27/20 12/27/20 Range/Units 08:13 07:14 07:14 WBC (4.8-10.8) K/uL RBC (4.7-6.1) M/uL Hgb (14.0-18.0) g/dL Hct (42-52) % MCV (80-100) fL MCH (25-34) pg MCHC (32-36) g/dL RDW Std Deviation (36.4-46.3) fL RDW Coeff of Claudia (11.5-14.5) % Plt Count (130-400) K/uL MPV (7.4-10.4) fL Immature Gran % (Auto) % Neut % (Auto) % Lymph % (Auto) % [place] % (Auto) % Eos % (Auto) % Baso % (Auto) % Neut # (Auto) (1.4-6.5) K/uL Lymph # (Auto) (1.2-3.4) K/uL [place] # (Auto) (0.11-0.59) K/uL Eos # (Auto) (0-0.5) K/uL Baso # (Auto) (0-0.2) K/uL Immature Gran # (Auto) (0.00-0.02) K/uL Sodium (136-145) mmol/L Potassium 3.4 L (3.5-5.1) mmol/L Chloride (98-107) mmol/L Carbon Dioxide (21-32) mmol/L Anion Gap (3-11) BUN (7-18) mg/dl Creatinine (0.6-1.4) mg/dl Est Cr Clr Drug Dosing ml/min Est GFR ( Amer) ml/min Est GFR (Non-Af Amer) ml/min BUN/Creatinine Ratio (10-20) Glucose (70-99) mg/dl POC Glucose 122 H (70-99) mg/dl Calcium (8.5-10.1) mg/dl Magnesium 2.2 (1.8-2.4) mg/dl 12/27/20 12/27/20 12/26/20 Range/Units 05:53 05:53 20:41 WBC 7.72 (4.8-10.8) K/uL RBC 3.45 L (4.7-6.1) M/uL Hgb 10.3 L (14.0-18.0) g/dL Hct 30.5 L (42-52) % MCV 88.4 (80-100) fL MCH 29.9 (25-34) pg MCHC 33.8 (32-36) g/dL RDW Std Deviation 46.8 H (36.4-46.3) fL RDW Coeff of Claudia 14.2 (11.5-14.5) % Plt Count 185 (130-400) K/uL MPV 10.2 (7.4-10.4) fL Immature Gran % (Auto) 0.3 % Neut % (Auto) 79.1 % Lymph % (Auto) 9.3 % [place] % (Auto) 8.5 % Eos % (Auto) 2.7 % Baso % (Auto) 0.1 % Neut # (Auto) 6.10 (1.4-6.5) K/uL Lymph # (Auto) 0.72 L (1.2-3.4) K/uL [place] # (Auto) 0.66 H (0.11-0.59) K/uL Eos # (Auto) 0.21 (0-0.5) K/uL Baso # (Auto) 0.01 (0-0.2) K/uL Immature Gran # (Auto) 0.02 (0.00-0.02) K/uL Sodium 137 (136-145) mmol/L Potassium (3.5-5.1) mmol/L Chloride 107 (98-107) mmol/L Carbon Dioxide 25 (21-32) mmol/L Anion Gap 5.0 (3-11) BUN 20 H (7-18) mg/dl Creatinine 0.92 (0.6-1.4) mg/dl Est Cr Clr Drug Dosing 78.9 ml/min Est GFR ( Amer) 93.3 ml/min Est GFR (Non-Af Amer) 80.5 ml/min BUN/Creatinine Ratio 21.5 H (10-20) Glucose 124 H (70-99) mg/dl POC Glucose 148 H (70-99) mg/dl Calcium 8.7 (8.5-10.1) mg/dl Magnesium (1.8-2.4) mg/dl 12/26/20 12/26/20 Range/Units 17:41 11:39 WBC (4.8-10.8) K/uL RBC (4.7-6.1) M/uL Hgb (14.0-18.0) g/dL Hct (42-52) % MCV (80-100) fL MCH (25-34) pg MCHC (32-36) g/dL RDW Std Deviation (36.4-46.3) fL RDW Coeff of Claudia (11.5-14.5) % Plt Count (130-400) K/uL MPV (7.4-10.4) fL Immature Gran % (Auto) % Neut % (Auto) % Lymph % (Auto) % [place] % (Auto) % Eos % (Auto) % Baso % (Auto) % Neut # (Auto) (1.4-6.5) K/uL Lymph # (Auto) (1.2-3.4) K/uL [place] # (Auto) (0.11-0.59) K/uL Eos # (Auto) (0-0.5) K/uL Baso # (Auto) (0-0.2) K/uL Immature Gran # (Auto) (0.00-0.02) K/uL Sodium (136-145) mmol/L Potassium (3.5-5.1) mmol/L Chloride (98-107) mmol/L Carbon Dioxide (21-32) mmol/L Anion Gap (3-11) BUN (7-18) mg/dl Creatinine (0.6-1.4) mg/dl Est Cr Clr Drug Dosing ml/min Est GFR ( Amer) ml/min Est GFR (Non-Af Amer) ml/min BUN/Creatinine Ratio (10-20) Glucose (70-99) mg/dl POC Glucose 123 H 97 (70-99) mg/dl Calcium (8.5-10.1) mg/dl Magnesium (1.8-2.4) mg/dl PG Care Time/CCT Total # of Minutes Spent Total Time Spent with Patient: Total time spent is greater than 50% in coordination of care (as documented) at patient's floor/unit and/or counseling patient: Coding Level of Care Code 98678 Subseq Hosp Care Lvl 3 Diagnoses Incarcerated incisional hernia K43.0 Diabetes mellitus type 2 in obese E11.69; E66.9 Hypertension I10 Hypertension type: essential hypertension History of heart valve replacement Z95.2 Hyperlipidemia E78.5 DVT prophylaxis Z29.9 (1) Hypertension Hypertension type: essential hypertension Qualified Code(s): I10 - Essential (primary) hypertension
[2020-12-27] MEDS ORDERED: POTASSIUM CHLORIDE 20 MEQ in SODIUM CHLORIDE 0.9% 1000ML 1,000 ML IV SCH (09:00)
[2020-12-27] MEDS: INSULIN ASPART 100 UNITS/ML VIAL SC SCH ×4 (09:27→20:38)
[2020-12-27] MEDS ORDERED: LIDOCAINE 5% 1 PATCH TD SCH (10:45)
[2020-12-27] MEDS ORDERED: hydroCHLOROthiazide 25 MG TAB PO STA (10:54)
[2020-12-27] MEDS ORDERED: VALSARTAN 80 MG TAB PO STA (10:55)
[2020-12-27] MEDS: ASPIRIN 81 MG ECTAB PO SCH (11:34)
[2020-12-27] MEDS ORDERED: oxyCODONE HCL IR 5 MG TAB (IMMEDIATE RELEASE) PO PRN ×2 (15:30→17:53)
[2020-12-27] MEDS ORDERED: GABAPENTIN 600 MG TAB PO STA (17:51)
[2020-12-27] MEDS ORDERED: Nursing to Pharmacy Communication SCH (18:00)
[2020-12-27] MEDS: ENOXAPARIN INJ 40 MG/0.4 ML SYR SQ SCH (20:37)
[2020-12-27] MEDS: traZODone HCL 50 MG TAB PO SCH (20:38)
[2020-12-27] MEDS: GABAPENTIN 600 MG TAB PO SCH (20:38)
[2020-12-27] MEDS: LIDOCAINE 5% 1 PATCH TD SCH (20:40)
[2020-12-28] MEDS: ACETAMINOPHEN 1,000 MG/100 ML VIAL IV SCH (02:43)
[2020-12-28] MEDS: PIPERACILLIN/TAZOBACTAM 3.375 GM in DEXTROSE 5% 100 ML IV SCH ×3 (02:43→17:53)
--- NOTE | 2020-12-28 05:30 | Surgery Progress Note ---
Date of Service December 28, 2020 Assessment & Plan (1) Incarcerated hernia: Plan: Patient is status post exploratory laparotomy with small bowel resection on 12/24/2020 (postop day #4) Continue analgesics as needed Continue antiemetics as needed Encourage ambulation in hallway Encourage use of incentive spirometry Diet advanced to full liquid yesterday, however patient did not eat much. We will see how he does with full liquids today before advancing to solids. Patient is receiving Lovenox for DVT prevention Admission and Anticipated Discharge Date Admission Date: December 24, 2020 Supervising Physician Co-Signing Physician Notes Patient is doing very well this morning after being placed back on his gabapentin We will continue him on full liquids today-he is satisfied with this plan Continue his IV antibiotics for now Possibly for discharge tomorrow or Tuesday Subjective Patient currently resting comfortably in bed. At the present time he denies any significant abdominal pain. He notes over the past 24 hours she has had a bowel movement. Patient had his diet advanced to full liquids yesterday however the patient notes he really did not eat much. He notes he had a bad day yesterday and he feels this was due to the fact that he was not getting his Neurontin as he usually takes at home. He notes that since his Neurontin has been resumed he feels much better. Physical Exam Gastrointestinal (Abdomen): Abdomen is soft. Bowel sounds are present. Incision is clean, dry, intact. Results & Data ([facility]) Vital Signs (Past 12 Hours) Vital Signs Temp Pulse Resp BP Pulse Ox 12/27/20 22:35 36.6 C 65 16 119/68 96 PG Care Time/CCT Total # of Minutes Spent Total Time Spent with Patient: Total time spent is greater than 50% in coordination of care (as documented) at patient's floor/unit and/or counseling patient: Coding Level of Care Code None Diagnoses Incarcerated hernia K46.0
[2020-12-28 06:24] LABS: Hematocrit (blood only) 29.1 % (42-52); Hemoglobin 9.7 g/dL (14.0-18.0); Mean Corpuscular Hemoglobin 29.5 pg (25-34); Mean Corpuscular Hgb Conc 33.3 g/dL (32-36); Mean Corpuscular Volume 88.4 fL (80-100); Platelet Count 192 K/uL (130-400); RDW Coefficient of Variation 14.2 % (11.5-14.5); RDW Standard Deviation 46.2 fL (36.4-46.3); Red Blood Count 3.29 M/uL (4.7-6.1); White Blood Count 4.81 K/uL (4.8-10.8)
[2020-12-28 07:02] LABS: BUN Creatinine Ratio 15.4 (10-20); Calcium 9.1 mg/dl (8.5-10.1); Creatinine Clr Calc Pharmacy 90.8 ml/min; Est GFR (African American) 100.6 ml/min; Est GFR (Non-African American) 86.8 ml/min; Magnesium 2.1 mg/dl (1.8-2.4); Potassium 3.6 mmol/L (3.5-5.1)
[2020-12-28] MEDS: VALSARTAN 80 MG TAB PO SCH (08:06)
[2020-12-28] MEDS: GABAPENTIN 600 MG TAB PO SCH ×3 (08:06→20:30)
[2020-12-28] MEDS: hydroCHLOROthiazide 25 MG TAB PO SCH (08:07)
[2020-12-28] MEDS ORDERED: POTASSIUM CHLORIDE CRTAB 20 MEQ TABCR PO STA (08:35)
--- NOTE | 2020-12-28 08:35 | Hospitalist Progress Note ---
Date of Service December 28, 2020 Assessment & Plan (1) Incarcerated incisional hernia: Plan: POD4 s/p Exploratory Laparotomy, Incarcerated Incisional Hernia Repair, Small Bowel Resection(Not Applicable) - Jarrett Sarkar MD. EBL 15cc. Per OP report-- > Upper midline incisional hernia containing a loop of bowel. The bowel was ischemic. There is an additional hernia containing unobstructed transverse colon cephalad to this hernia. Small bowel resection reanastomosis. Hernia repaired with suture. Zosyn for abx (had fever, elevated WBC post-operatively, infarcted bowel), on day 4 of therapy WBC now wnl, no further fevers. BCx ngtd Continue IVF for now, NSS @ 125cc/hr, add K for now Hgb stable 10.3 -- acute blood loss anemia from surgery as well as dilutional as has remained on IVF +flatus, BM His gabapentin was resumed and he is improved regarding pain which was increased last night and had not gotten since admission, likely having some withdrawal Continues with liquids for now --> discussed with surgery and will advance to low fiber diet this afternoon Pain management, antiemetics prn Continues Lovenox SQ for DVT prophylaxis Supportive care, electrolyte replacement as needed. Given PO K to keep ~4 Possible d/c tomorrow vs tuesday per surgery team Hospitalist service will follow along with chart checks. Please contact with any questions/concerns. (2) Diabetes mellitus type 2 in obese: Plan: Patient typically takes Metformin he will be n.p.o. 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 No prior hx afib. 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 Please call with any questions/concerns. Admission and Anticipated Discharge Date Admission Date: December 24, 2020 Subjective Patient evaluated this morning. Felling MUCH better after getting his gabapentin restarted. Ate cream of wheat/oatmeal this AM without issue. Discussed with surgery and will advance to low fiber later today. Passing gas, moving bowels. Wants NOTHING for pain at this time. No nausea, vomiting, fever, chills, chest pain or shortness of breath at this time. Review of Systems Review of Systems: All systems reviewed & are unremarkable except as noted in HPI & below Physical Exam Physical Exam: WD/WN, obese male sitting up in chair, no acute distress mmm, trachea midline without deviation Resp CTAB, no w/c/r, on room air CV: RRR, no edema or JVD, calves non-tender, pulses palpable GI: +BS, appropriately tender, with abdominal binder intact. looks good, no guarding or rigidity : no savage Neuro: no focal deficit Psych: AOx3, euthymic Results & Data Results & Data ([facility]) Vital Signs (Past 12 Hours) Vital Signs Temp Pulse Resp BP BP Pulse Ox 12/28/20 07:48 36.8 C 55 L 16 163/55 H 98 12/27/20 22:35 36.6 C 65 16 119/68 96 Laboratory Results 12/28/20 12/28/20 12/28/20 Range/Units 08:21 06:06 06:06 WBC 4.81 (4.8-10.8) K/uL RBC 3.29 L (4.7-6.1) M/uL Hgb 9.7 L (14.0-18.0) g/dL Hct 29.1 L (42-52) % MCV 88.4 (80-100) fL MCH 29.5 (25-34) pg MCHC 33.3 (32-36) g/dL RDW Std Deviation 46.2 (36.4-46.3) fL RDW Coeff of Claudia 14.2 (11.5-14.5) % Plt Count 192 (130-400) K/uL MPV 10.0 (7.4-10.4) fL Sodium 140 (136-145) mmol/L Potassium 3.6 (3.5-5.1) mmol/L Chloride 109 H (98-107) mmol/L Carbon Dioxide 26 (21-32) mmol/L Anion Gap 5.0 (3-11) BUN 12 (7-18) mg/dl Creatinine 0.80 (0.6-1.4) mg/dl Est Cr Clr Drug Dosing 90.8 ml/min Est GFR ( Amer) 100.6 ml/min Est GFR (Non-Af Amer) 86.8 ml/min BUN/Creatinine Ratio 15.4 (10-20) Glucose 107 H (70-99) mg/dl POC Glucose 94 (70-99) mg/dl Calcium 9.1 (8.5-10.1) mg/dl Magnesium 2.1 (1.8-2.4) mg/dl 12/27/20 12/27/20 12/27/20 Range/Units 20:24 17:22 12:03 WBC (4.8-10.8) K/uL RBC (4.7-6.1) M/uL Hgb (14.0-18.0) g/dL Hct (42-52) % MCV (80-100) fL MCH (25-34) pg MCHC (32-36) g/dL RDW Std Deviation (36.4-46.3) fL RDW Coeff of Claudia (11.5-14.5) % Plt Count (130-400) K/uL MPV (7.4-10.4) fL Sodium (136-145) mmol/L Potassium (3.5-5.1) mmol/L Chloride (98-107) mmol/L Carbon Dioxide (21-32) mmol/L Anion Gap (3-11) BUN (7-18) mg/dl Creatinine (0.6-1.4) mg/dl Est Cr Clr Drug Dosing ml/min Est GFR ( Amer) ml/min Est GFR (Non-Af Amer) ml/min BUN/Creatinine Ratio (10-20) Glucose (70-99) mg/dl POC Glucose 114 H 112 H 126 H (70-99) mg/dl Calcium (8.5-10.1) mg/dl Magnesium (1.8-2.4) mg/dl 12/27/ Range/Units 07:14 WBC (4.8-10.8) K/uL RBC (4.7-6.1) M/uL Hgb (14.0-18.0) g/dL Hct (42-52) % MCV (80-100) fL MCH (25-34) pg MCHC (32-36) g/dL RDW Std Deviation (36.4-46.3) fL RDW Coeff of Claudia (11.5-14.5) % Plt Count (130-400) K/uL MPV (7.4-10.4) fL Sodium (136-145) mmol/L Potassium (3.5-5.1) mmol/L Chloride (98-107) mmol/L Carbon Dioxide (21-32) mmol/L Anion Gap (3-11) BUN (7-18) mg/dl Creatinine (0.6-1.4) mg/dl Est Cr Clr Drug Dosing ml/min Est GFR ( Amer) ml/min Est GFR (Non-Af Amer) ml/min BUN/Creatinine Ratio (10-20) Glucose (70-99) mg/dl POC Glucose (70-99) mg/dl Calcium (8.5-10.1) mg/dl Magnesium 2.2 (1.8-2.4) mg/dl PG Care Time/CCT Total # of Minutes Spent Total Time Spent with Patient: Total time spent is greater than 50% in coordination of care (as documented) at patient's floor/unit and/or counseling patient: Coding Level of Care Code 66819 Subseq Hosp Care Lvl 2 Diagnoses Incarcerated incisional hernia K43.0 Diabetes mellitus type 2 in obese E11.69; E66.9 Hypertension I10 Hypertension type: essential hypertension History of heart valve replacement Z95.2 Hyperlipidemia E78.5 DVT prophylaxis Z29.9 (1) Hypertension Hypertension type: essential hypertension Qualified Code(s): I10 - Essential (primary) hypertension
--- NOTE | 2020-12-28 08:37 | Hospitalist Progress Note ---
Date of Service December 28, 2020 Assessment & Plan Admission and Anticipated Discharge Date Admission Date: December 24, 2020 Results & Data Results & Data ([facility]) Vital Signs (Past 12 Hours) Vital Signs Temp Pulse Resp BP BP Pulse Ox 12/28/20 07:48 36.8 C 55 L 16 163/55 H 98 12/27/20 22:35 36.6 C 65 16 119/68 96 PG Care Time/CCT Total # of Minutes Spent Total Time Spent with Patient: Total time spent is greater than 50% in coordination of care (as documented) at patient's floor/unit and/or counseling patient: Coding
[2020-12-28] MEDS: ASPIRIN 81 MG ECTAB PO SCH (09:06)
[2020-12-28] MEDS: INSULIN ASPART 100 UNITS/ML VIAL SC SCH ×4 (09:19→20:30)
[2020-12-28] MEDS: ENOXAPARIN INJ 40 MG/0.4 ML SYR SQ SCH (20:29)
[2020-12-28] MEDS: LIDOCAINE 5% 1 PATCH TD SCH (20:30)
[2020-12-28] MEDS: traZODone HCL 50 MG TAB PO SCH (20:30)
[2020-12-28] MEDS ORDERED: ROSUVASTATIN CALCIUM 20 MG TAB PO SCH (21:00)
[2020-12-29] MEDS: PIPERACILLIN/TAZOBACTAM 3.375 GM in DEXTROSE 5% 100 ML IV SCH ×2 (02:35→11:20)
[2020-12-29 06:10] LABS: Basophils # (auto) 0.02 K/uL (0-0.2); Basophils % (auto) 0.4 %; Eosinophils # (auto) 0.18 K/uL (0-0.5); Eosinophils % (auto) 3.7 %; Hematocrit (blood only) 30.6 % (42-52); Immature Granulocytes # (auto) 0.03 K/uL (0.00-0.02); Immature Granulocytes % (auto) 0.6 %; Lymphocytes # (auto) 0.92 K/uL (1.2-3.4); Lymphocytes % (auto) 18.9 %; Mean Corpuscular Hemoglobin 29.5 pg (25-34); Mean Corpuscular Hgb Conc 32.7 g/dL (32-36); Mean Corpuscular Volume 90.3 fL (80-100); Mean Platelet Volume 9.6 fL (7.4-10.4); Monocytes # (auto) 0.46 K/uL (0.11-0.59); Monocytes % (auto) 9.4 %; Neutrophils # (auto) 3.27 K/uL (1.4-6.5); Platelet Count 229 K/uL (130-400); RDW Coefficient of Variation 14.3 % (11.5-14.5); RDW Standard Deviation 47.8 fL (36.4-46.3); Red Blood Count 3.39 M/uL (4.7-6.1); White Blood Count 4.88 K/uL (4.8-10.8)
[2020-12-29 06:43] LABS: Albumin Level 2.4 gm/dl (3.4-5.0); Calcium 9.2 mg/dl (8.5-10.1); Creatinine Clr Calc Pharmacy 90.8 ml/min; Est GFR (African American) 100.6 ml/min; Est GFR (Non-African American) 86.8 ml/min; Magnesium 1.8 mg/dl (1.8-2.4)
[2020-12-29 06:46] LABS: Albumin Globulin Ratio 0.6 (0.9-2); Bilirubin,Total 0.5 mg/dl (0.2-1); Globulin 4.2 gm/dl (2.5-4.0); Total Protein 6.6 gm/dl (6.4-8.2)
[2020-12-29] MEDS: INSULIN ASPART 100 UNITS/ML VIAL SC SCH (08:43)
[2020-12-29] MEDS: hydroCHLOROthiazide 25 MG TAB PO SCH (08:44)
[2020-12-29] MEDS: ASPIRIN 81 MG ECTAB PO SCH (08:44)
[2020-12-29] MEDS: VALSARTAN 80 MG TAB PO SCH (08:44)
[2020-12-29] MEDS: GABAPENTIN 600 MG TAB PO SCH (08:45)
--- NOTE | 2020-12-29 10:09 | Discharge Summary ---
Date of Service December 29, 2020 Admission HPI Per Admitting Provider 75-year-old gentleman presents with severe upper abdominal pain. The pain started yesterday after lifting heavy object. The pain came suddenly. It has been associated with nausea and vomiting. He has not passed gas since yesterday. He last ate yesterday morning. He denies fevers and chills. He denies chest pain, shortness of breath, nasal congestion. He has had a prior colon resection. He has a midline incision. CT scan demonstrates a loop of small bowel stuck in a hernia sac with surrounding inflammation stranding. He has a small bowel obstruction proximal to this point. He has had a prior aortic valve replacement with a biological valve. He is currently on aspirin but no other blood thinner. Principal Diagnosis Incarcerated incisional hernia with ischemic bowel Discharge Exam Constitutional WD/WN, vitals as above Eyes PERRL, conjunctivae normal, anicteric sclerae Neck trachea midline, no thyromegaly Respiratory normal respiratory effort; no respiratory distress and no labored breathing Cardiovascular Rate/Rhythm: regular rate and regular rhythm Gastrointestinal (Abdomen) Inspection/Auscultation: + abdominal surgical incision (Clean, dry, intact, with oni); abdomen not distended Percussion/Palpation: abdomen soft; abdomen nontender, no guarding and abdomen not rigid Musculoskeletal Extremities: no cyanosis and no clubbing Skin no rashes, warm and dry Psychiatric A+Ox3, euthymic affect Discharge Data Allergies Allergy/AdvReac Type Severity Reaction Status Date / Time lisinopril Allergy Severe Swelling Verified 12/24/20 10:45 of Lip/Tongue/Throat Consultations 12/24/20 10:36 Consult General Surgery Stat 12/24/20 20:44 Consult Hospitalist Routine Procedures Performed Operation Date: 12/24/20 09:50 Actual Procedures p Exploratory Laparotomy, Small Bowel Resection(Not Applicable) - Jarrett Sarkar MD s Incarcerated Incisional Hernia Repair,(Not Applicable) - Jarrett Sarkar MD Ordered Studies 12/24/20 09:17 CT abd pelvis wo con Stat Hospital Course (1) SBO (small bowel obstruction): (2) Incarcerated hernia: (3) Small bowel ischemia: The patient was admitted through the emergency department with an incarcerated hernia containing a threatened loop of small bowel. He was taken immediately to the operating room, which revealed an ischemic loop of small bowel contained within the incarcerated hernia. He required small bowel resection and reanastomosis during his exploratory laparotomy as well as hernia repair. The details of this are dictated in a separate operative note. Postoperatively he was transferred in stable condition to the PACU and subsequently to the floor. Over the course of his admission, he was maintained for DVT prophylaxis with SCD boots, early ambulation, and Lovenox subcutaneous. He was encouraged to use his incentive spirometer and ambulate early and often for pulmonary prophylaxis. He was maintained on IV and subsequently p.o. pain medications for pain control. His diet was slowly advanced as tolerated. By the day of discharge, he was having bowel movements, not requiring any IV pain medication, and he was discharged home in stable condition. He will keep his oni for 2 more days and be seen in the office on Tuesday for staple removal. Total Time Total Time Spent Total Time Spent (In Minutes): 30 minutes Discharge Plan Discharge Items Patient Disposition: Home - Self-Care Reason For Visit: INCARCERATED INCISIONAL HERNIA Discharge Diagnosis: Incarcerated incisional hernia with bowel Bowel resection Condition on Discharge: Good Activity: Per Instructions section Non-emergency contact: Surgeon Call non-emergency contact if: your pain is not controlled, your pain is worsening, your pain is concerning for you, you have a fever, your temperature is above 101, your wound has increased redness, your wound has increased drainage and your wound pain has increased Follow-up/Referrals: Amrit Paz, [Primary Care Provider] - Diet: Regular Addtl Attending Provider Instructions: Post-Surgical ~Discharge Instructions Activity Recommendations: - lifting limitation: (10 pounds for at least 6 weeks), - exercise/sex/sports limit: (nonstrenuous for 6 weeks), - driving or machine use limit: (none for 1 week, until pain free, and no longer taking narcotic pain medication - Shower/bathe limit: (may shower, no submerging incision un derwater for 2 weeks) Diet: - Resume previous diet SPECIAL CARE INSTRUCTIONS: - May shower. Let water run over area and pat dry. - Surgical oni will be remove in office - Call the surgeon's office with any questions or concerns - - (ex. temperature higher than 101 degrees F, excessive bleeding or pain). MEDICATIONS: - Resume previous medications unless instructed otherwise by your surgeon. - May alternate extra strength Tylenol and Ibuprofen as needed for mild to moderate pain -650 mg Tylenol every 6 hours as needed - Ibuprofen 600 mg every 6 hours as needed (take with food) - Percocet 1 every 4 hours, as needed for moderate to severe pain - Recommend daily to twice daily stool softener (Colace) while taking narcotic pain medications to prevent constipation or straining. FOLLOW UP VISIT: - If not already scheduled, please call the office to schedule a one- two week follow-up appointment. Office number Pending Studies at Discharge: No Stand-Alone Forms: My [facility] [employer], Smoking Cessation Medications and DC Order Prescriptions: New oxycodone-acetaminophen [Percocet] 5-325 mg tablet 1 tab PO Q6H PRN (Reason: pain) Qty: 15 RF: 0 Continued metformin 500 mg tablet 1,000 mg PO BID Qty: 360 RF: 3 (DME) lancets [OneTouch UltraSoft Lancets] [facility] See Rx Instructions .ROUTE .MEDSUPPLY Qty: 100 RF: 0 valsartan-hydrochlorothiazide 80-12.5 mg tablet 1 tab PO QAM Qty: 90 RF: 1 rosuvastatin [Crestor] 20 mg tablet 20 mg PO DAILY Qty: 90 RF: 1 gabapentin 600 mg tablet 600 mg PO TID Qty: 270 RF: 2 elderberry fruit 200 mg capsule 1,500 mg PO BID RF: 0 (DME) OneTouch Ultra Blue Test Strip Strip See Rx Instructions .ROUTE .MEDSUPPLY RF: 0 (DME) blood-glucose meter [OneTouch Ultra2 Meter] [facility] See Rx Instructions .ROUTE .MEDSUPPLY RF: 0 multivitamin Tablet 1 tab PO QAM RF: 0 aspirin 81 mg Tablet,Delayed Release (Dr/Ec) 81 mg PO DAILY RF: 0 Discharge Orders: Discharge Order (Routine); Ordered 12/29/20 Ordered By: Jarrett Sarkar Admission Data Admit Date/Time: 12/24/20 15:19 Attending Provider: Jarrett Sarkar Admit Provider: Jarrett Sarkar Primary Care Provider: Amrit Paz Other Providers: Jarrett Sarkar ; Chad Muhammad
--- NOTE | 2021-01-13 11:12 | Coding Query ---
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 Please assist us with the question(s) below: Coding Question(s): Patient admitted with incarcerated hernia and ischemic intestine. Documentation states ischemic intestine. Seeking to clarify the acuity of the ischemic intestine. Please check below and thank you . Brett Yuan [facility] [place] Physician's Response(s): Intestinal ischemia not otherwise specified ___XXX Acute ischemic intestine Chronic ischemic intestine Other: Please document: Principal Diagnosis: "that condition established after study, to be chiefly responsible for occasioning the admission of the patient to the hospital for care." Co-Existing Principal Diagnosis: "when two or more diagnoses equally meet the criteria for principal diagnosis as determined by the circumstances of admission, diagnostic work up, and/or therapy provided, and the Alphabetic Index, Tabular List, or another coding guideline does not provide sequencing direction, any one of the diagnoses may be sequenced first." "When the physician has documented what appears to be a current diagnosis in the body of the record, but has not included the diagnosis in the final diagnostic statement, the physician should be asked whether the diagnosis should be added." (Source [facility]oding [facility] 2 QTR90. p3-4) [place]
== END 2020-12-29 12:34 | disposition home or self-care (01) | DRG 329 ==
LOC: ED 08:41 → PACUINP 12:23 → OR 12:23 → PACUINP 15:19 → 3W 12-25 13:03

== ENCOUNTER 2022-04-05 11:48 | Observation (INO) ==
--- NOTE | 2022-04-05 12:06 | Emergency Department Note ---
Impression & Plan Shortness of breath, Elevated troponin ED Provider Note NAME: KARAN KIMBLE AGE: 76 SEX: M : 1945 ARRIVES VIA: Walk-In INFORMANT: Patient ED PROVIDER(S): George Munroe DO CHIEF COMPLAINT: shortness of breath HPI: Patient is a 76-year-old male who presents to the ER with a past medical history of diabetes, hypertension, obesity, CAD with a TAVR for exertional shortness of breath which has been getting worse since this past Tuesday. He is unable to lay flat. He notes he had an echo in October which appeared to be worsening. Denies any belly pain, nausea, vomiting, dysuria, urgency, or frequency. No other exacerbating or remitting factors. Denies any chest pain. PAST MEDICAL HISTORY:See Below PAST SURGICAL HISTORY:See Below FAMILY HISTORY:See Below SOCIAL HISTORY:See Below HOME MEDICATIONS:See Below ALLERGIES:See Below VITALS:See Below PHYSICAL EXAMINATION: GENERAL: Sitting up in bed, alert, well appearing, well nourished, no distress, non-toxic EYE EXAM: normal conjunctiva. OROPHARYNX: no exudate, no erythema, lips, buccal mucosa, and tongue normal and mucous membranes are moist NECK: supple, no nuchal rigidity, no adenopathy, non-tender LUNGS: Clear to auscultation. Normal chest wall mechanics HEART: no murmurs, S1 normal and S2 normal ABDOMEN: abdomen soft, non-tender, normo-active bowel sounds, no masses, no rebound or guarding. UPPER EXTREMITIES: upper extremities are grossly normal. LOWER EXTREMITIES: No pitting edema. NEURO EXAM: Normal sensorium, cranial nerves II-XII grossly intact, normal speech, no gross weakness of arms, no gross weakness of legs. MEDICAL DECISION MAKING: Patient is a 76-year-old male who presents to the ER for exertional shortness of breath as well as shortness of breath with lying flat. IV was established blood work was obtained. Does have an extensive history of CAD, diabetes, and hypertension. External records were reviewed. Labs show no significant leukocytosis. Mild anemia 11.5. BMP with slightly elevated chloride at 108. Troponin was elevated at 60. BNP slightly elevated at 156. Lipase was normal. COVID was negative. Chest x-ray showed no focal infiltrate per my read. EKG as described below. Patient was updated bedside. Will benefit from an echo and consequently discussed with the hospitalist Dr. Akash Brian for further management and treatment Triage Nursing notes reviewed. Limited review of prior medical records performed Vital Signs: reviewed and remarkable for HTN Differential diagnosis: Cardiac ischemia, aortic dissection, pulmonary embolism, pneumothorax, pneumonia, pericarditis, myocarditis, esophageal rupture, GERD, cholecystitis, pancreatitis, musculoskeletal, as well as other pathologies. ER treatment provided: See below Diagnostics interpreted by me include EKG and cardiac monitoring as listed below: -Cardiac Monitoring: An order was placed for continuous cardiac monitoring. The monitor shows a rate of 70 with sinus rhythm. -ECG: Sinus rhythm rate 72 Left axis Right bundle QTc 499 -Laboratory studies:Interpreted by me as stated above in MDM and shown below. Imaging studies: Xrays: As interpreted by me: Portable AP upright 1 view of the chest shows no focal infiltrate per my read CTs show: none Consultation(s): Discussed with Dr. Akash Brian for further evaluation and management Procedures:none Critical Care: None Past Med/Surg History Medical History CAD (coronary artery disease) Cardiac murmur Constipation CTS (carpal tunnel syndrome) Diabetes mellitus, type 2 Diabetic neuropathy, painful Diverticular disease DVT prophylaxis Hypertension Incarcerated incisional hernia Lumbar radiculopathy Lumbar stenosis with neurogenic claudication Morbid obesity Osteoarthritis Peripheral neuropathy Sleep apnea no device Surgical History H/O colonoscopy 10/2018 repeat colonoscopy in 3 years History of cardiac cath 2016 - [facility] - PRE OP VALVE REPLACEMENT - NO STENTS/ANGIOPLASTY History of colectomy (~1988) PARTIAL FOR DIVERTIVCULITIS History of heart valve replacement (~09/2016) AORTIC VALVE-[facility] 09/2016 - FOLLOWS W/ DR. DARLING History of spinal fusion x2. lumbar spine History of surgical removal of skin lesion x3 on back--basal cell Dr. Hernandez History of total knee replacement Bilateral Hx of cataract surgery bilat Hx of exploratory laparotomy Incarcerated hernia repaired SBO (small bowel obstruction) repaired Status post transcatheter aortic valve replacement Family History Mother Diabetes mellitus, type 2 Stroke Hypertension Kidney disease Kidney stones Sister Diabetes mellitus, type 2 Gallbladder disease Brother Diabetes mellitus, type 2 Father Myocardial infarction Alcohol abuse Other Family history of diabetes mellitus Denies family history of Ovarian cancer Prostate cancer Breast cancer Lung cancer Colorectal cancer Social History Smoking Status: Never smoker Second Hand Exposure: No; Hx Alcohol Use: No Hx Substance Use: No Preferred Language: Monegasque Communication Ability: Effective Visual Impairment: Limited Hearing Ability: Normal Forest Fire Management Officer Required: No Beliefs That Will Affect Care: None marital status: Single Current Living Situation: Alone 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al status: employed and retired 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, 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 [id number] How many Children do You have: 0 Feels Safe at Home: Yes Childhood Exposure to Second-Hand Smoke: Yes (father) caffeine: Yes (coffee in morning only 1 cup ) Dental Care, Regularly: Yes Physical Activity Frequency: Does not Exercise Seatbelt Use: always Sunscreen Use: Yes (sometimes) Assistive Devices: None Allergies Allergies Allergy/AdvReac Type Severity Reaction Status Date / Time lisinopril Allergy Severe Swelling Verified 03/03/22 08:11 of Lip/Tongue/Throat pollen extracts Allergy Verified 03/03/22 08:11 Home Meds Home Medications Medication Instructions Recorded Confirmed multivitamin 1 tab PO QAM 12/25/17 04/05/22 elderberry fruit 200 mg capsule 1,500 mg PO QAM 12/17/19 04/05/22 [facility]/08/20 04/05/22 Ultra Blue Test Strip) blood-glucose meter ([facility] 12/08/20 04/05/22 Ultra2 Meter) aspirin 81 mg tablet,delayed 81 mg PO QAM 12/24/20 04/05/22 release alpha lipoic acid 50 mg capsule 1,200 mg PO QAM 06/22/21 04/05/22 Super Beta Prostate 1 tab PO QAM 02/25/22 04/05/22 rosuvastatin 20 mg tablet (Crestor) 20 mg PO QAM 02/25/22 04/05/22 amoxicillin 500 mg capsule 2,000 mg PO DAILY PRN Prophylaxis 04/05/22 04/05/22 Previous Rx's Medication Instructions Recorded lancets (GigmaxTouch UltraSoft #100 ea 06/19/20 Lancets) metformin 500 mg tablet 1,000 mg PO BID #360 tabs 07/15/21 valsartan 80 1 tab PO QAM #90 tabs 01/25/22 mg-hydrochlorothiazide 12.5 mg tablet pregabalin 75 mg capsule (Lyrica) 75 mg PO TID #90 caps 02/26/22 Results & Data (ED) Vital Signs Vital Signs - 24 hr 04/05/22 11:50 04/05/22 12:18 04/05/22 12:21 Temperature 36.7 C Temperature Source Temporal Artery Scan Pulse Rate 88 73 Pulse Rate from SpO2 Sensor Respiratory Rate 18 24 Blood Pressure 163/68 H Blood Pressure Mean 99 Pulse Oximetry 96 94 94 Oxygen Delivery Method Room Air Room Air Room Air Sepsis Recent Fever Within 48 Hours No Sepsis New/Unexplained Change in Mental Status No Sepsis Action Taken by Nursing No Action Required 04/05/22 13:03 04/05/22 13:02 Temperature Temperature Source Pulse Rate 74 74 Pulse Rate from SpO2 Sensor 74 Respiratory Rate 18 Blood Pressure Blood Pressure Mean Pulse Oximetry 93 Oxygen Delivery Method Sepsis Recent Fever Within 48 Hours Sepsis New/Unexplained Change in Mental Status Sepsis Action Taken by Nursing Laboratory Data 04/05/22 12:05 04/05/22 12:05 Lab Results 04/05/22 04/05/22 04/05/22 Range/Units 12:05 12:05 13:45 WBC 7.21 (4.8-10.8) K/ul RBC 3.92 L (4.70-6.10) M/uL Hgb 11.5 L (14.0-18.0) g/dl Hct 34.3 L (42.0-52.0) % MCV 87.5 (80.0-100.0) fL MCH 29.3 (25.0-34.0) pg MCHC 33.5 (32.0-36.0) g/dL RDW Std Deviation 44.7 (36.4-46.3) fL RDW Coeff of Claudia 14.0 (11.5-14.5) % Plt Count 220 (130-400) K/uL MPV 10.4 (9.4-12.4) fL Immature Gran % (Auto) 0.3 % Neut % (Auto) 71.1 % Lymph % (Auto) 18.7 % [place] % (Auto) 8.0 % Eos % (Auto) 1.5 % Baso % (Auto) 0.4 % Neut # (Auto) 5.12 (1.40-6.50) K/uL Lymph # (Auto) 1.35 (1.2-3.4) K/uL [place] # (Auto) 0.58 (0.11-0.59) K/uL Eos # (Auto) 0.11 (0-0.50) K/uL Baso # (Auto) 0.03 (0-0.2) K/uL Immature Gran # (Auto) 0.02 (0.01-0.20) K/uL Sodium 138 (136-145) mmol/L Potassium 4.5 (3.5-5.1) mmol/L Chloride 108 H (98-107) mmol/L Carbon Dioxide 25 (21-32) mmol/L Anion Gap 5 (3-11) BUN 18 (6-23) mg/dl Creatinine 0.93 (0.6-1.4) mg/dl Est Cr Clr Drug Dosing 79.8 ml/min Est GFR ( Amer) 91.5 ml/min Est GFR (Non-Af Amer) 78.9 ml/min BUN/Creatinine Ratio 19.4 (10-20) Glucose 101 H (70-99(Fasting)) mg/dl Calcium 9.8 (8.5-10.1) mg/dl Total Bilirubin 0.6 (0.2-1.0) mg/dl AST 20 (13-39) U/L ALT 25 (7-52) U/L Alkaline Phosphatase 77 (34-104) U/L Troponin I High Sens 60.4 H* (0-20) pg/ml B-Natriuretic Peptide (0-100) pg/ml Total Protein 7.2 (6.0-8.3) gm/dl Albumin 4.2 (3.4-5.0) gm/dl Globulin 3.0 (2.5-4.0) gm/dl Albumin/Globulin Ratio 1.4 (0.9-2) Lipase 20 (11-82) U/L SARS-CoV-2, RNA, NAAT NEGATIVE (NEGATIVE) 04/05/22 Range/Units 15:05 WBC (4.8-10.8) K/ul RBC (4.70-6.10) M/uL Hgb (14.0-18.0) g/dl Hct (42.0-52.0) % MCV (80.0-100.0) fL MCH (25.0-34.0) pg MCHC (32.0-36.0) g/dL RDW Std Deviation (36.4-46.3) fL RDW Coeff of Claudia (11.5-14.5) % Plt Count (130-400) K/uL MPV (9.4-12.4) fL Immature Gran % (Auto) % Neut % (Auto) % Lymph % (Auto) % [place] % (Auto) % Eos % (Auto) % Baso % (Auto) % Neut # (Auto) (1.40-6.50) K/uL Lymph # (Auto) (1.2-3.4) K/uL [place] # (Auto) (0.11-0.59) K/uL Eos # (Auto) (0-0.50) K/uL Baso # (Auto) (0-0.2) K/uL Immature Gran # (Auto) (0.01-0.20) K/uL Sodium (136-145) mmol/L Potassium (3.5-5.1) mmol/L Chloride (98-107) mmol/L Carbon Dioxide (21-32) mmol/L Anion Gap (3-11) BUN (6-23) mg/dl Creatinine (0.6-1.4) mg/dl Est Cr Clr Drug Dosing ml/min Est GFR ( Amer) ml/min Est GFR (Non-Af Amer) ml/min BUN/Creatinine Ratio (10-20) Glucose (70-99(Fasting)) mg/dl Calcium (8.5-10.1) mg/dl Total Bilirubin (0.2-1.0) mg/dl AST (13-39) U/L ALT (7-52) U/L Alkaline Phosphatase (34-104) U/L Troponin I High Sens (0-20) pg/ml B-Natriuretic Peptide 156 H (0-100) pg/ml Total Protein (6.0-8.3) gm/dl Albumin (3.4-5.0) gm/dl Globulin (2.5-4.0) gm/dl Albumin/Globulin Ratio (0.9-2) Lipase (11-82) U/L SARS-CoV-2, RNA, NAAT (NEGATIVE) Administered Medications Discontinued Medications Aspirin (Aspirin Chew 324 Mg) 324 mg PO NOW STA Stop: 04/05/22 13:36 Last Admin: 04/05/22 13:45 Dose: 324 mg Documented By: KARL Furosemide (Furosemide 40 Mg/4 Ml Vial) 40 mg IV ONE STA Stop: 04/05/22 15:07 Last Admin: 04/05/22 15:15 Dose: 40 mg Documented By: NENA Imaging Data Radiologist's Impression: Chest X-Ray 04/05/22 11:55 XR chest 1V portable HISTORY: Chest pain, nonspecific COMPARISON: Chest 12/24/2020. FINDINGS: No pneumothorax. The cardiac silhouette remains mildly enlarged. The upper lung zones are clear. Hazy bibasilar densities which may be technical. No evidence for pulmonary edema. IMPRESSION: 1. Stable cardiomegaly. 2. Hazy bibasilar densities which may be technical. ACT 112: Negative or not required by law. Electronically signed by: Kunal Myrick M.D. 04/05/2022 12:28 PM Discharge Plan Visit Data Chief Complaint: Shortness of Breath/Dyspnea Stated Complaint: SHORT OF BREATH ED Provider: George Munroe Discharge Problem: Shortness of breath, Elevated troponin Forms Stand Alone Forms: My [facility] [place] Latest Medical Prescriptions Prescriptions: No Action (DME) lancets [OneTouch UltraSoft Lancets] [facility] See Rx Instructions .ROUTE .MEDSUPPLY Qty: 100 0RF Rx Instructions: test twice daily metformin 500 mg tablet 1,000 mg PO BID Qty: 360 3RF valsartan-hydrochlorothiazide 80-12.5 mg tablet 1 tab PO QAM Qty: 90 1RF pregabalin [Lyrica] 75 mg capsule 75 mg PO TID Qty: 90 5RF elderberry fruit 200 mg capsule 1,500 mg PO QAM (DME) OneTouch Ultra Blue Test Strip Strip See Rx Instructions .ROUTE .MEDSUPPLY Rx Instructions: test twice daily; prn (DME) blood-glucose meter [OneTouch Ultra2 Meter] [facility] See Rx Instructions .ROUTE .MEDSUPPLY Rx Instructions: test twice daily;prn alpha lipoic acid 50 mg capsule 1,200 mg PO QAM multivitamin Tablet 1 tab PO QAM aspirin 81 mg Tablet,Delayed Release (Dr/Ec) 81 mg PO QAM rosuvastatin [Crestor] 20 mg tablet 20 mg PO QAM Super Beta Prostate 1 tab PO QAM amoxicillin 500 mg capsule 2,000 mg PO DAILY PRN (Reason: Prophylaxis) Referrals Referrals: Amrit Paz DO [Primary Care Provider] -
[2022-04-05 12:23] LABS: Basophils # (auto) 0.03 K/uL (0-0.2); Basophils % (auto) 0.4 %; Eosinophils # (auto) 0.11 K/uL (0-0.50); Eosinophils % (auto) 1.5 %; Hematocrit (blood only) 34.3 % (42.0-52.0); Hemoglobin 11.5 g/dl (14.0-18.0); Immature Granulocytes # (auto) 0.02 K/uL (0.01-0.20); Immature Granulocytes % (auto) 0.3 %; Lymphocytes # (auto) 1.35 K/uL (1.2-3.4); Lymphocytes % (auto) 18.7 %; Mean Corpuscular Hemoglobin 29.3 pg (25.0-34.0); Mean Corpuscular Hgb Conc 33.5 g/dL (32.0-36.0); Mean Corpuscular Volume 87.5 fL (80.0-100.0); Mean Platelet Volume 10.4 fL (9.4-12.4); Monocytes # (auto) 0.58 K/uL (0.11-0.59); Neutrophils # (auto) 5.12 K/uL (1.40-6.50); Neutrophils % (auto) 71.1 %; Platelet Count 220 K/uL (130-400); RDW Standard Deviation 44.7 fL (36.4-46.3); Red Blood Count 3.92 M/uL (4.70-6.10); White Blood Count 7.21 K/ul (4.8-10.8)
--- NOTE | 2022-04-05 12:30 | XRay Report ---
XR chest 1V portable HISTORY: Chest pain, nonspecific COMPARISON: Chest 12/24/2020. FINDINGS: No pneumothorax. The cardiac silhouette remains mildly enlarged. The upper lung zones are c lear. Hazy bibasilar densities which may be technical. No evidence for pulmonary edema. IMPRESSION: 1. Stable cardiomegaly. 2. Hazy bibasilar densities which may be technical. ACT 112: Negative or not required by law. Electronically signed by: Kunal Myrick M.D. 04/05/2022 12:28 PM
[2022-04-05 12:39] LABS: Albumin Globulin Ratio 1.4 (0.9-2); Albumin Level 4.2 gm/dl (3.4-5.0); BUN Creatinine Ratio 19.4 (10-20); Bilirubin,Total 0.6 mg/dl (0.2-1.0); Calcium 9.8 mg/dl (8.5-10.1); Creatinine Clr Calc Pharmacy 79.8 ml/min; Est GFR (African American) 91.5 ml/min; Est GFR (Non-African American) 78.9 ml/min; Potassium 4.5 mmol/L (3.5-5.1); Total Protein 7.2 gm/dl (6.0-8.3)
--- NOTE | 2022-04-05 12:55 | Electrocardiogram Report ---
Test Reason : Blood Pressure : / mmHG Vent. Rate : 072 BPM Atrial Rate : 072 BPM P-R Int : 224 ms QRS Dur : 132 ms QT Int : 456 ms P-R-T Axes : 043 -57 062 degrees QTc Int : 499 ms Sinus rhythm with 1st degree A-V block Right bundle branch block Left anterior fascicular block Bifascicular block Minimal voltage criteria for LVH, may be normal variant Septal infarct (cited on or before 05-APR-2022) Abnormal ECG When compared with ECG of 24-DEC-2020 09:51, Questionable change in initial forces of Septal leads Confirmed by Samuel Jimenez ([id number]) on 04/05/2022 12:54:43 PM Referred By: Confirmed By:Samuel Jimenez
[2022-04-05 13:24] LABS: Troponin I High Sensitivity 60.4 pg/ml (0-20)
[2022-04-05] MEDS ORDERED: ASPIRIN CHEW 324 MG PO STA (13:35)
--- NOTE | 2022-04-05 13:51 | History & Physical Report ---
Date of Service April 05, 2022 Assessment & Plan (1) Dyspnea on exertion: Plan: 76 y/o male w/ PMHx of HTN, mild CAD, DM2, and TAVR who presents w/ 3 days of orthopnea and dyspnea. Vitals stable, saturating 93% on room air. - exam consistent w/ hypervolemia, including JVD - considered other differentials for orthopnea such as infectious, cardiac, chronic lung disease, pleural effusion, ESCOBAR - BNP mildly elevated at 156 - hx TAVR ~2018. 10/2021 echo w/ EF 55-60%. grade 1 diastolic dysfunction. 01/27 echo w/ EF 60-65%. 10/2021 echo w/ contrast not in records. - cxr w/ hazy bibasilar opacity vs artifact. repeat in AM - echo in AM - diuresis w/ IV Lasix 40mg daily - strict Is/Os - incentive spirometry - continuous pulse oximetry w/ O2 saturation goal of 90% or greater (2) Diabetes mellitus type 2 in obese: Plan: - a1c and fasting lipids in AM - continue home Lyrica for diabetic neuropathy - hold metformin. SSI + 7u Lantus BID (3) Hypertension: Plan: - continue home valsartan-HCTZ (4) CAD (coronary artery disease): Plan: - 2017 cardiac cath w/ mild nonobstructive CAD (5) History of heart valve replacement: Plan: - replaced in 2017 (6) Sleep apnea: Plan: - not on cpap as outpatient. 2017 cardia cath w/o pulm htn (7) Elevated troponin: Plan: - mild elevation likely secondary to increased demand. will repeat (8) Hyperlipidemia: Plan: - continue home statin Plan FEN/GI: DM2, HH, low Na. No IV fluids. ppx: sq Lovenox BID code: full dispo: med surg History of Present Illness Chief Complaint: dyspnea Primary Care Provider: Amrit Paz, 76 y/o male w/ PMHx of HTN, mild CAD, DM2, and TAVR who presents w/ worsening dyspnea and dyspnea on exertion since 3 days ago. + orthopnea. He had to sleep in a recliner the first night. Denies hx similar. Denies URI symptoms like cough, sputum or nasal congestion. No f/c, chest pain, n/v/d, abd pain, urinary symptoms, abd pain, or pain that radiates to back. Denies needing diuresis in past as outpatient. States has had chf dx in past, but w/o exacerbation. Follows TAVR program yearly at [facility] in [place]. He states he had a TTE w/ contrast at [place] in 10/2021; not in chart records. Does not require home O2. Never smoker. No hx asthma or COPD. Denies VTE risk factors such as family hx, prolonged bedrest, malignancy, or long trips. He denies having noticed lower extremity swelling. ED course: ASA 324mg Allergies Allergy/AdvReac Type Severity Reaction Status Date / Time lisinopril Allergy Severe Swelling Verified 03/03/22 08:11 of Lip/Tongue/Throat pollen extracts Allergy Verified 03/03/22 08:11 Home Medications Medication Instructions Recorded Confirmed Type multivitamin 1 tab PO QAM 12/25/17 04/05/22 History elderberry fruit 200 mg capsule 1,500 mg PO QAM 12/17/19 04/05/22 History lancets (Mo-DVTouch UltraSoft #100 ea 06/19/20 04/05/22 Rx Lancets) blood sugar diagnostic (OneTouch 12/08/20 04/05/22 History Ultra Blue Test Strip) blood-glucose meter (OneTouch 12/08/20 04/05/22 History Ultra2 Meter) aspirin 81 mg tablet,delayed 81 mg PO QAM 12/24/20 04/05/22 History release alpha lipoic acid 50 mg capsule 1,200 mg PO QAM 06/22/21 04/05/22 History metformin 500 mg tablet 1,000 mg PO BID #360 tabs 07/15/21 04/05/22 Rx valsartan 80 1 tab PO QAM #90 tabs 01/25/22 04/05/22 Rx mg-hydrochlorothiazide 12.5 mg tablet Super Beta Prostate 1 tab PO QAM 02/25/22 04/05/22 History rosuvastatin 20 mg tablet (Crestor) 20 mg PO QAM 02/25/22 04/05/22 History pregabalin 75 mg capsule (Lyrica) 75 mg PO TID #90 caps 02/26/22 04/05/22 Rx amoxicillin 500 mg capsule 2,000 mg PO DAILY PRN Prophylaxis 04/05/22 04/05/22 History Past Med/Surg History Medical History CAD (coronary artery disease) Cardiac murmur Constipation CTS (carpal tunnel syndrome) Diabetes mellitus, type 2 Diabetic neuropathy, painful Diverticular disease DVT prophylaxis Hypertension Incarcerated incisional hernia Lumbar radiculopathy Lumbar stenosis with neurogenic claudication Morbid obesity Osteoarthritis Peripheral neuropathy Sleep apnea no device Surgical History H/O colonoscopy 10/2018 repeat colonoscopy in 3 years History of cardiac cath 2016 - [facility] - PRE OP VALVE REPLACEMENT - NO STENTS/ANGIOPLASTY History of colectomy (~1988) PARTIAL FOR DIVERTIVCULITIS History of heart valve replacement (~09/2016) [facility]IC [facility]VE[facility] 09/2016 - FOLLOWS W/ DR. DARLING History of spinal fusion x2. lumbar spine History of surgical removal of skin lesion x3 on back--basal cell Dr. Hernandez History of total knee replacement Bilateral Hx of cataract surgery bilat Hx of exploratory laparotomy Incarcerated hernia repaired SBO (small bowel obstruction) repaired Status post transcatheter aortic valve replacement Family History Mother Diabetes mellitus, type 2 Stroke Hypertension Kidney disease Kidney stones Sister Diabetes mellitus, type 2 Gallbladder disease Brother Diabetes mellitus, type 2 Father Myocardial infarction Alcohol abuse Other Family history of diabetes mellitus Denies family history of Ovarian cancer Prostate cancer Breast cancer Lung cancer Colorectal cancer Social History Smoking Status: Never smoker Second Hand Exposure: No; Hx Alcohol Use: No Hx Substance Use: No Preferred Language: Nigerien Communication Ability: Effective Visual Impairment: Limited Hearing Ability: Normal Meat Stocker Required: No Beliefs That Will Affect Care: None marital status: Single Current Living Situation: Alone 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al status: employed and retired 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, 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 [employer] How many Children do You have: 0 Feels Safe at Home: Yes Childhood Exposure to Second-Hand Smoke: Yes (father) caffeine: Yes (coffee in morning only 1 cup ) Dental Care, Regularly: Yes Physical Activity Frequency: Does not Exercise Seatbelt Use: always Sunscreen Use: Yes (sometimes) Assistive Devices: None Review of Systems Review of Systems: All systems reviewed & are unremarkable except as noted in HPI & below Physical Exam Physical Exam: General: Grossly A&O. NAD. Cooperative. HEENT: Atraumatic, normocephalic. EOMI. PERRL. Normal oropharynx. +JVD on right at 30deg angle. 2 finger breadths above clavicle. Pulm: Faint inspiratory crackles at left lower lung field. No wheezes. No accessory muscle use. Cardiac: RRR. 2/16 systolic murmur loudest at aortic area. [place] S2. Radial pulses intact and symmetrical. 1+ bilat lower extremity edema. Abdominal: Nontender, nondistended, soft. Integ: Warm, dry intact. Msk: Moving all extremities. Neuro: No sensory or motor deficit of extremities. Results & Data Results & Data ([facility]) Vital Signs (Past 12 Hours) Vital Signs Temp Pulse Resp BP Pulse Ox O2 Del Method 04/05/22 13:02 74 18 93 04/05/22 13:03 74 04/05/22 12:21 94 Room Air 04/05/22 12:18 73 24 94 Room Air 04/05/22 11:50 36.7 C 88 18 163/68 H 96 Room Air vss. 93% on RA Laboratory Results Hb 11.5, baseline. cmp reviewed. hstrop 60.4 Cardiac Enzymes 04/05/22 Range/Units 12:05 AST 20 (13-39) U/L Troponin I High Sens 60.4 H* (0-20) pg/ml CBC 04/05/22 Range/Units 12:05 WBC 7.21 (4.8-10.8) K/ul RBC 3.92 L (4.70-6.10) M/uL Hgb 11.5 L (14.0-18.0) g/dl Hct 34.3 L (42.0-52.0) % Plt Count 220 (130-400) K/uL Neut # (Auto) 5.12 (1.40-6.50) K/uL Lymph # (Auto) 1.35 (1.2-3.4) K/uL [place] # (Auto) 0.58 (0.11-0.59) K/uL Eos # (Auto) 0.11 (0-0.50) K/uL Baso # (Auto) 0.03 (0-0.2) K/uL Comprehensive Metabolic Panel 04/05/22 Range/Units 12:05 Sodium 138 (136-145) mmol/L Potassium 4.5 (3.5-5.1) mmol/L Chloride 108 H (98-107) mmol/L Carbon Dioxide 25 (21-32) mmol/L BUN 18 (6-23) mg/dl Creatinine 0.93 (0.6-1.4) mg/dl Glucose 101 H (70-99(Fasting)) mg/dl Calcium 9.8 (8.5-10.1) mg/dl AST 20 (13-39) U/L ALT 25 (7-52) U/L Alkaline Phosphatase 77 (34-104) U/L Total Protein 7.2 (6.0-8.3) gm/dl Albumin 4.2 (3.4-5.0) gm/dl Intake and Output 04/04/22 04/05/22 04/05/22 22:59 06:59 14:59 Other: Weight 116.3 kg Weight Measurement Method Chair Scale Patient Weight 04/06/22 06:59 Weight 116.3 kg Diagnostic Findings Chest X-Ray 04/05/22 11:55 XR chest 1V portable HISTORY: Chest pain, nonspecific COMPARISON: Chest 12/24/2020. FINDINGS: No pneumothorax. The cardiac silhouette remains mildly enlarged. The upper lung zones are clear. Hazy bibasilar densities which may be technical. No evidence for pulmonary edema. IMPRESSION: 1. Stable cardiomegaly. 2. Hazy bibasilar densities which may be technical. ACT 112: Negative or not required by law. Electronically signed by: Kunal Myrick M.D. 04/05/2022 12:28 PM ECG Additional Comments: rbbb w/ new lafb? Vent. Rate : 072 BPM Atrial Rate : 072 BPM P-R Int : 224 ms QRS Dur : 132 ms QT Int : 456 ms P-R-T Axes : 043 -57 062 degrees QTc Int : 499 ms Sinus rhythm with 1st degree A-V block Right bundle branch block Left anterior fascicular block Bifascicular block Minimal voltage criteria for LVH, may be normal variant Septal infarct (cited on or before 05-APR-2022) Abnormal ECG When compared with ECG of 24-DEC-2020 09:51, Questionable change in initial forces of Septal leads Confirmed by Samuel Jimenez ([id number]) on 04/05/2022 12:54:43 PM Code Status & VTE Plan Code Status full VTE Prophylaxis Plan VTE Prophylaxis will be ordered: Yes Resident Activity Tracking Resident Involvement: Resident Care Provided Care Provided: Adult Hospital Medicine (3) Hypertension Hypertension type: essential hypertension Qualified Code(s): I10 - Essential (primary) hypertension (4) CAD (coronary artery disease) Associated angina: without angina Coronary Disease-Associated Artery/Lesion type: [place] artery [place] vs. transplanted heart: [place] heart Qualified Code(s): I25.10 - Atherosclerotic heart disease of [place] coronary artery without angina pectoris
[2022-04-05] MEDS ORDERED: FUROSEMIDE 40 MG/4 ML VIAL IV STA (15:06)
[2022-04-05] MEDS ORDERED: GLUCOSE 40% GEL 15 GM TUBE PO PRN (16:00)
[2022-04-05] MEDS ORDERED: GLUCAGON FOR INJ 1 MG VIAL SQ PRN (16:00)
[2022-04-05] MEDS ORDERED: GLUCOSE 10 TAB/TUBE PO PRN (16:00)
[2022-04-05] MEDS ORDERED: CARBOHYDRATES FOR HYPOGLYCEMIA PO PRN (16:00)
[2022-04-05] MEDS ORDERED: DEXTROSE 50% 50 ML SYRINGE IV PRN (16:00)
[2022-04-05] MEDS: INSULIN ASPART PER UNIT SC SCH ×2 (16:15→20:46)
[2022-04-05] MEDS ORDERED: ACETAMINOPHEN 325 MG TAB PO PRN (17:35)
--- NOTE | 2022-04-05 19:08 | Communication Note ---
Date of Service: April 05, 2022 [employer] will not allow me to addend resident physician H&P - i apologize for any inconvenience I personally examined the patient and verified all nunez points of history and exam, discussed case, and agree with decision making with Dr Manzo breathing feeling OK at rest. soup most days. last week siblings gave him a lot of leftovers, guessing a lot of sodium vitals noted nad heent nc at mmm breathing unlabored no accessory muscles good effort skin no rashes no pallor or icterus acute HFpEF - likley due to Na mediated fluid retention. educated on such. diurese. follow. hopefully will not need prolonged stay. otherwise as above
--- NOTE | 2022-04-05 19:08 | Billing Data ---
Date of Service April 05, 2022 Coding Level of Care Code INP/OBS EV SAME DAY LV 3,85MIN
[2022-04-05] MEDS: PREGABALIN 75 MG CAP PO SCH (20:49)
[2022-04-05] MEDS: ENOXAPARIN INJ 40 MG/0.4 ML SYR SQ SCH (20:49)
[2022-04-05] MEDS: LANTUS PER UNIT CHARGE SQ SCH (20:50)
--- NOTE | 2022-04-06 07:43 | Hospitalist Progress Note ---
Date of Service April 06, 2022 Assessment & Plan (1) Dyspnea on exertion: Plan: 76 y/o male w/ PMHx of HTN, mild CAD, DM2, and TAVR who presents w/ 3 days of orthopnea and dyspnea. Vitals stable, saturating 93% on room air. - exam consistent w/ hypervolemia, including JVD - considered other differentials for orthopnea such as infectious, cardiac, chronic lung disease, pleural effusion, ESCOBAR - BNP mildly elevated at 156 - hx TAVR ~2018. 10/2021 echo w/ EF 55-60%. grade 1 diastolic dysfunction. 01/27 echo w/ EF 60-65%. 10/2021 echo w/ contrast not in records. - cxr w/ hazy bibasilar opacity vs artifact. repeat in AM - echo in AM - diuresis w/ IV Lasix 40mg daily - strict Is/Os - incentive spirometry - continuous pulse oximetry w/ O2 saturation goal of 90% or greater (2) Diabetes mellitus type 2 in obese: Plan: - a1c and fasting lipids in AM - continue home Lyrica for diabetic neuropathy - hold metformin. SSI + 7u Lantus BID (3) Hypertension: Plan: - continue home valsartan-HCTZ (4) CAD (coronary artery disease): Plan: - 2017 cardiac cath w/ mild nonobstructive CAD (5) History of heart valve replacement: Plan: - replaced in 2017 (6) Sleep apnea: Plan: - not on cpap as outpatient. 2017 cardia cath w/o pulm htn (7) Elevated troponin: Plan: - mild elevation likely secondary to increased demand. will repeat (8) Hyperlipidemia: Plan: - continue home statin Plan FEN/GI: DM2, HH, low Na. No IV fluids. ppx: sq Lovenox BID code: full dispo: med surg Admission and Anticipated Discharge Date Admission Date: April 05, 2022 Review of Systems Review of Systems: As per HPI. Results & Data Results & Data ([facility]) Vital Signs (Past 12 Hours) Vital Signs Temp Pulse Resp BP Pulse Ox O2 Del Method 04/06/22 07:40 36.6 C 63 16 122/65 97 Room Air 04/05/22 20:00 Room Air 04/05/22 20:52 37.0 C 75 18 129/63 94 Room Air (3) Hypertension Hypertension type: essential hypertension Qualified Code(s): I10 - Essential (primary) hypertension (4) CAD (coronary artery disease) Associated angina: without angina Coronary Disease-Associated Artery/Lesion type: [place] artery [place] vs. transplanted heart: [place] heart Qualified Code(s): I25.10 - Atherosclerotic heart disease of [place] coronary artery without angina pectoris
[2022-04-06 08:15] LABS: BUN Creatinine Ratio 21.2 (10-20); Calcium 9.9 mg/dl (8.5-10.1); Chol HDL Ratio 2.2 (0-5); Creatinine Clr Calc Pharmacy 64.5 ml/min; Est GFR (African American) 72.3 ml/min; Est GFR (Non-African American) 62.4 ml/min; Hematocrit (blood only) 34.4 % (42.0-52.0); Hemoglobin 11.6 g/dl (14.0-18.0); Magnesium 1.8 mg/dl (1.7-2.4); Mean Corpuscular Hemoglobin 29.4 pg (25.0-34.0); Mean Corpuscular Hgb Conc 33.7 g/dL (32.0-36.0); Mean Corpuscular Volume 87.1 fL (80.0-100.0); Mean Platelet Volume 10.7 fL (9.4-12.4); Platelet Count 216 K/uL (130-400); Potassium 4.5 mmol/L (3.5-5.1); RDW Coefficient of Variation 13.9 % (11.5-14.5); RDW Standard Deviation 44.5 fL (36.4-46.3); Red Blood Count 3.95 M/uL (4.70-6.10); White Blood Count 5.44 K/ul (4.8-10.8)
[2022-04-06] MEDS ORDERED: VALSARTAN 80 MG TAB PO SCH (09:00)
[2022-04-06] MEDS ORDERED: ASPIRIN 81 MG ECTAB PO SCH (09:00)
[2022-04-06] MEDS ORDERED: hydroCHLOROthiazide 25 MG TAB PO SCH (09:00)
[2022-04-06] MEDS ORDERED: FUROSEMIDE 40 MG/4 ML VIAL IV SCH (09:00)
[2022-04-06] MEDS ORDERED: ROSUVASTATIN CALCIUM 20 MG TAB PO SCH ×2 (09:00→09:35)
[2022-04-06] MEDS: LANTUS PER UNIT CHARGE SQ SCH (09:12)
[2022-04-06] MEDS: INSULIN ASPART PER UNIT SC SCH ×2 (09:12→12:44)
--- NOTE | 2022-04-06 09:21 | XRay Report ---
XR chest 2V PA/lateral CLINICAL HISTORY: dyspnea TECHNIQUE: 2 views of the chest were obtained. Comparison: Comparison is made to chest radiograph 04/05/2022 FINDINGS: No lines and tubes are seen. Cardiomegaly is noted. The aortic arch is calcified. There is valvular p rosthesis is seen. There is prominence and cephalization of the vasculature with Erickson B lines seen. Trace bilateral pleural effusions are seen. Degenerative changes are seen in the spine. IMPRESSION: 1. Cardiomegaly and moderate pulmonary edema. 2. Trace bilateral pleural effusions. ACT 112: Negative or not required by law. Electronically signed by: López Singh M.D. 04/06/2022 9:19 AM
[2022-04-06] MEDS: PREGABALIN 75 MG CAP PO SCH ×2 (09:35→13:45)
[2022-04-06 10:08] LABS: Estimated Average Glucose 126 mg/dl
[2022-04-06] MEDS: ENOXAPARIN INJ 40 MG/0.4 ML SYR SQ SCH (10:15)
--- NOTE | 2022-04-06 12:54 | XCELERA ---
[id number] \\[id number]_[id number]
--- NOTE | 2022-04-06 17:55 | Discharge Summary ---
Date of Service April 06, 2022 Admission HPI Per Admitting Provider 76 y/o male w/ PMHx of HTN, mild CAD, DM2, and TAVR who presents w/ worsening dyspnea and dyspnea on exertion since 3 days ago. + orthopnea. He had to sleep in a recliner the first night. Denies hx similar. Denies URI symptoms like cough, sputum or nasal congestion. No f/c, chest pain, n/v/d, abd pain, urinary symptoms, abd pain, or pain that radiates to back. Denies needing diuresis in past as outpatient. States has had chf dx in past, but w/o exacerbation. Follows TAVR program yearly at [facility] in [place]. He states he had a TTE w/ contrast at [place] in 10/2021; not in chart records. Does not require home O2. Never smoker. No hx asthma or COPD. Denies VTE risk factors such as family hx, prolonged bedrest, malignancy, or long trips. He denies having noticed lower extremity swelling. ED course: ASA 324mg Admission Exam Per Admitting Provider General: Grossly A&O. NAD. Cooperative. HEENT: Atraumatic, normocephalic. EOMI. PERRL. Normal oropharynx. +JVD on right at 30deg angle. 2 finger breadths above clavicle. Pulm: Faint inspiratory crackles at left lower lung field. No wheezes. No accessory muscle use. Cardiac: RRR. 2/16 systolic murmur loudest at aortic area. Bee S2. Radial pulses intact and symmetrical. 1+ bilat lower extremity edema. Abdominal: Nontender, nondistended, soft. Integ: Warm, dry intact. Msk: Moving all extremities. Neuro: No sensory or motor deficit of extremities. Principal Diagnosis CHF exacerbation Discharge Exam Constitutional WD/WN, vitals as above Eyes PERRL, conjunctivae normal, anicteric sclerae Respiratory normal respiratory effort, lungs clear to auscultation Cardiovascular RRR, no murmur, no edema Gastrointestinal (Abdomen) normal bowel sounds, soft, nontender, no hepatosplenomegaly Psychiatric A+Ox3, euthymic affect Discharge Data Allergies Allergy/AdvReac Type Severity Reaction Status Date / Time lisinopril Allergy Severe Swelling Verified 03/03/22 08:11 of Lip/Tongue/Throat pollen extracts Allergy Verified 03/03/22 08:11 Consultations 04/05/22 13:34 ED Decision to Admit Stat Hospital Course (1) Dyspnea on exertion: 76 y/o male w/ PMHx of HTN, mild CAD, DM2, and TAVR who presents w/ 3 days of orthopnea and dyspnea. \\ Dyspnea on exertion: -Patient admitted for new onset dyspnea on exertion. -BNP 156, troponin peaked at 65.6, electrolytes WNL. -Echocardiogram unremarkable (EF 60-65%). -Patient given 40mg IV Lasix on admission with ~2kg weight loss and resolution of symptoms next day. -Gave patient PRN Lasix 20mg oral to take if rapid weight gain or rapid leg edema bilaterally. -Follow up with PCP and cardiology at [facility]. Hyperlipidemia: -LDL in hospital 14. -Consider lowering rosuvastatin from 20mg to 10mg. (2) Diabetes mellitus type 2 in obese: (3) Hypertension: (4) CAD (coronary artery disease): (5) History of heart valve replacement: (6) Sleep apnea: (7) Elevated troponin: (8) Hyperlipidemia: Total Time Total Time Spent Total Time Spent (In Minutes): <30 Discharge Plan Discharge Items Patient Disposition: Home - Self-Care Reason For Visit: SHORT OF BREATH Discharge Diagnosis: CHF exacerbation Activity: Per Instructions section Non-emergency contact: Primary Care Provider and Autoc[employer] Technician Call non-emergency contact if: your symptoms worsen, your pain is worsening and your temperature is above 101 Follow-up/Referrals: Amrit Paz, [Primary Care Provider] - 04/13/22 9:00 am (hosp dc f/u within 1 wk - Will see Radha Zavaleta PA-C in Dr. Paz's office) Diet: Low Sodium (2gm) Addtl Attending Provider Instructions: A discharge summary will be sent to your primary care physician to ensure continuity of care. You came to the hospital for shortness of breath on exertion. You were found to be in a volume excess state and subsequently given furosemide, a diuretic. This weight change was most likely due to excess salt intake from sources such as soup. Like we discussed a diet low in salt, limiting daily salt intake to 2000mg per day. The ultrasound report was reviewed with you prior to discharge (normal squeeze (ejection fraction 60-65%). There were a few other findings (such as grade II diastolic dysfunction). You may see the details via the patient portal. You may also discuss with your PCP. For your history of sleep apnea, please follow up w/ urogynaecologist or PCP regarding CPAP as treatment of sleep apnea is important for your health. Follow-up: * You should be seen by your primary physician within the next week. Medications: Your medication list has been reviewed and reconciled upon discharge to ensure accuracy and continuity of care. An updated list of all your medications is included with your hospital discharge paperwork. Please review this list closely, and make note of any changes. * We will give you Lasix 20mg tablets x 5 tabs. Take a dose for 2 days if you notice sudden weight gain (>2 lbs in 24 hours) and shortness of breath (specially with lying down). Notify your PCP if this happens. Take your medications as instructed; do not skip a dose of your medicines. Make sure all of your doctors know every medicine you are taking (including cwnc-xst-wczxlzo medicines, vitamins, and supplements). let your primary care provider know before taking any new medicines because some of these may interact with your current medications, or may make your symptoms worse. CONTACT YOUR PRIMARY CARE PROVIDER if you experience any of the following: * Fevers or shaking chills * Shortness of breath not relieved by inhalers, fainting * Sudden abdominal distension not relieved by catheterization. * Difficulty following your treatment plan, or difficulty taking medications CALL 911 OR GO TO THE EMERGENCY DEPARTMENT if you experience any of the following: * Sudden, severe abdominal pain or nausea/vomiting * Severe chest pain, or chest pain that radiates (moves) to your jaw or arm * Sudden, severe shortness of breath or difficulty breathing It was was our pleasure taking care of you here at [facility] . Thank you for allowing us to participate in your care. Pending Studies at Discharge: No Stand-Alone Forms: [facility], Smoking Cessation Medications and DC Order Prescriptions: New furosemide 20 mg tablet 20 mg PO DAILY PRN (Reason: edema) Qty: 5 0RF Continued (DME) lancets [place]Touch UltraSoft [place]ets[place] [facility] [place] .MEDSUPPLY Qty: 100 0RF Rx Instructions: test twice daily metformin 500 mg tablet 1,000 mg PO BID Qty: 360 3RF valsartan-hydrochlorothiazide 80-12.5 mg tablet 1 tab PO QAM Qty: 90 1RF pregabalin [Lyrica] 75 mg capsule 75 mg PO TID Qty: 90 5RF elderberry fruit 200 mg capsule 1,500 mg PO QAM (DME) OneTouch Ultra Blue Test Strip Strip See Rx Instructions .ROUTE .MEDSUPPLY Rx Instructions: test twice daily; prn (DME) blood-glucose meter [place]OneTouch Ultra2 Meter[place] [facility] [place]OUTE .MEDSUPPLY Rx Instructions: test twice daily;prn alpha lipoic acid 50 mg capsule 1,200 mg PO QAM multivitamin Tablet 1 tab PO QAM aspirin 81 mg Tablet,Delayed Release (Dr/Ec) 81 mg PO QAM rosuvastatin [Crestor] 20 mg tablet 20 mg PO QAM Super Beta Prostate 1 tab PO QAM amoxicillin 500 mg capsule 2,000 mg PO DAILY PRN (Reason: Prophylaxis) Discharge Orders: Discharge Order (Routine); Ordered 04/06/22 Ordered By: Aaron Beaulieu/Other Patient Handouts: Managing Type 2 Diabetes, Special Foot Care for Diabetes Admission Data Admit Date/Time: 04/05/22 16:00 Attending Provider: George Venegas Admit Provider: Aaron Mazno Primary Care Provider: Amrit Paz Other Providers: Akash Brian Other Interventions: Discharge Summary Assessment (RN) Last Done: 04/06/22 14:22 Supervising Physician Co-Signing Physician Notes I personally examined the patient and verified all nunez points of history and exam, discussed case, and agree with decision making with Dr Martin Feeling better and feels up to going home. Reviewed discussed sodium mediated fluid retention, and avoiding sodium in his diet. Discussed outpatient follow- up. Vitals noted, in general He is awake and alert pleasant no distress. HEENT normocephalic atraumatic mucous membranes moist. Breathing unlabored no accessory muscle use good effort. Skin shows no rashes no pallor or icterus. Neuro without focal deficits. Acute HFpEFlikely due to sodium mediated fluid retention. Educated yesterday and today. Diuresed well. Stable for home. Outpatient follow-up, symptom triggered diuretics, but doubt he has a need for ongoing chronic diuresis as skylar g as he is more vigilant with sodium restriction. Morbid obesity with BMI of 40.1noted Mild demand ischemiadue to aboveversus baseline "leak" due to LVH. Either way echo without any regional wall motion abnormalities/etc. Safe/stable for home. Resident Activity Tracking Resident Involvement: Resident Care Provided Care Provided: Adult Hospital Medicine
--- NOTE | 2022-04-06 19:21 | Billing Data ---
Date of Service April 06, 2022 Coding Level of Care Code 28869 IN/OBS DISCH 30 MIN/LESS
== END 2022-04-06 15:33 | disposition home or self-care (01) ==
LOC: ED 11:48 → 3N 16:00 → INTOOBSV 16:00 → 3N 16:44